=== PATIENT | male | born 1975 | race Caucasian/White ===

== ENCOUNTER 2017-02-10 09:02 | Inpatient (IN) ==
--- NOTE | 2017-02-10 09:16 | Emergency Department Note ---
Disposition Clinical Impression: Small bowel obstruction Disposition: Admitted As Inpatient Condition: Fair Referrals: Oumou Eagle MD [Primary Care Provider] - Forms: Work/School Release, ED Satisfaction Letter Time of Disposition: 10:42 Abdominal Pain HPI - General Chief Complaint: ED Abdominal Pain Stated Complaint: abd pain, constipated Time Seen by Provider: 02/10/17 09:08 Source: patient, family Mode of arrival: ambulatory Limitations: no limitations Nursing Notes Reviewed: Yes Vital Signs Reviewed: Yes - History of Present Illness HPI Narrative: 41-year-old male with a history of Crohn's disease who comes in complaining of abdominal pain for the last day or so. Review of the record shows the patient had a resection of his colon and back in June 2015 had an ileocolonic anastomosis stenosis. That was dilated by GI. Patient was on Remicade but now is getting IV medication. Denies bloody diarrhea has had some constipation. 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 Consistency: intermittent Location: diffuse Pain Severity: moderate Pain Scale: 6 Quality: cramping, aching Radiation: none Migration to: no migration Improves with: nothing Worsens with: nothing Context: history of similar episodes, other (History of Crohn's) Associated symptoms: Reports: constipation - Related Data Home Medications Medication Instructions Recorded Confirmed Asacol Hd 800 mg PO TID 07/08/15 07/08/15 TraMADol [Ultram] 50 mg PO TID PRN 07/08/15 07/08/15 Previous Rx's Medication Instructions Recorded Ciprofloxacin HCl [Cipro] 500 mg PO BID #10 tablet 07/13/15 PredniSONE 30 mg PO DAILY 21 Days 07/13/15 metroNIDAZOLE [Flagyl] 500 mg PO TID 7 Days 07/13/15 Allergies Allergy/AdvReac Type Severity Reaction Status Date / Time No Known Allergies Allergy Verified 02/10/17 09:03 All systems ED: reviewed and negative except as stated. Constitutional: Denies: fever, chills, weakness, weight change Eyes: Denies: eye pain, eye discharge, vision change ENT ED: Denies: ear pain, throat pain, dental pain, hearing loss, epistaxis, congestion, dysphagia Cardiovascular: Denies: chest pain, palpitations, dyspnea on exertion, edema, syncope Respiratory: Denies: cough, dyspnea, wheezes, hemoptysis, stridor Gastrointestinal: Reports: abdominal pain. Denies: nausea, vomiting, diarrhea, constipation, hematemesis, melena, hematochezia Genitourinary: Denies: urgency, dysuria, frequency, hematuria Musculoskeletal: Denies: back pain, neck pain, arthralgia, myalgia Integumentary: Denies: rash, abrasion, lesions Neurological: Denies: headache, weakness, numbness, paresthesias, confusion, abnormal gait, vertigo Psychiatric: Denies: anxiety, depression, suicidal thoughts, homicidal thoughts , auditory hallucinations, visual hallucinations Endocrine: Denies: fatigue Hematological/Lymphatic: Denies: easy bleeding, easy bruising Allergic/Immunologic: Denies: facial swelling, urticaria Abdominal Pain PMH - Past Medical History Medical history: Reports: other Male Surgical History: Reports: other Psychiatric history: Reports: no psych history - Social History Smoking status: Current every day smoker Alcohol use: Reports: heavy, recent Drug use: Reports: none Physical Exam - General Limitations: no limitations General appearance: alert, in no apparent distress - Head Head exam: atraumatic, normocephalic, normal inspection - Eye Eye exam: Present: normal appearance, PERRL, EOMI - ENT ENT exam: normal exam, normal oropharynx, mucous membranes moist - Neck Neck exam: Present: normal inspection, full ROM, trachea midline - Chest Chest inspection: Present: normal inspection, symmetric chest wall rise - Respiratory Respiratory exam: Present: normal lung sounds bilaterally - Cardiovascular Cardiovascular exam: Present: regular rate, normal rhythm, normal heart sounds - Abdominal Exam Abdominal exam: Present: tenderness. Absent: guarding, rebound - Extremities Exam Extremities exam: Present: normal inspection, full ROM. Absent: tenderness, pedal edema - Expanded Lower Extremity Exam Neurovascular/Tendon exam: Absent: motor deficit, sensory deficit, tendon deficit Gait: observed and normal - Back Exam Back exam: Present: normal inspection, full ROM. Absent: tenderness - Neurological Exam Neurological exam: Present: alert, oriented X3 - Psychiatric Psychiatric exam: Present: normal affect, normal mood - Skin Skin exam: Present: warm, dry, intact, normal color Course - Consultations Consultation #1: Discussed with Dr. Vasquez, it to the hospitalist. Time: 10:41 Consultation #2: Discussed with carol Kennedy. Time: 11:10 Vital Signs Temperature 97.6 F 02/10/17 09:04 Pulse Rate 71 02/10/17 09:04 Respiratory Rate 15 02/10/17 09:04 Blood Pressure 171/106 02/10/17 09:04 O2 Sat by Pulse Oximetry 99 02/10/17 09:04 Temperature 97.6 F 02/10/17 09:04 Pulse Rate 71 02/10/17 09:04 Respiratory Rate 15 02/10/17 09:04 Blood Pressure 171/106 02/10/17 09:04 O2 Sat by Pulse Oximetry 99 02/10/17 09:04 Oxygen Delivery Oxygen Delivery Room Air Abdominal Pain - Lab Data Result diagrams: 02/10/17 09:20 02/10/17 09:20 Lab Results 02/10/17 02/10/17 02/10/17 Range/Units 09:20 09:20 09:20 WBC 7.1 (4.3-11.1) K/mcL RBC 4.95 (4.19-5.50) M/mcL Hgb 16.8 (12.9-16.9) g/dL Hct 47.3 (37.5-50.1) % MCV 95.6 (83.0-100.0) fL MCH 33.9 H (28.0-33.3) pg MCHC 35.5 (31.6-35.5) g/dL RDW 12.1 (11.5-14.5) % Plt Count 245 (140-400) K/mcL MPV 9.0 L (9.4-12.4) fL Immature Gran % 0.4 (0-4) % Seg Neutrophils % 56.5 % Lymphocytes % 28.6 % Monocytes % 13.0 % Eosinophils % 0.8 % Basophils % 0.7 % Neutrophils # 4.0 (1.6-8.9) K/mcL Lymphocytes # 2.0 (0.6-4.6) K/mcL Monocytes # 0.9 (0.0-1.3) K/mcL Eosinophils # 0.1 (0.0-0.6) K/mcL Basophils # 0.1 (0.0-0.2) K/mcL Immature Plt Fraction 3.1 (1.1-6.1) % ESR (0-10) mm/hr Sodium 133 L (136-145) mEq/L Potassium 3.4 L (3.5-4.5) mEq/L Chloride 98 (98-109) mEq/L Carbon Dioxide 25 (19-29) mEq/L BUN 13 (8-26) mg/dL Creatinine 1.01 (0.72-1.25) mg/dL Est GFR ( Amer) > 60 (> 60) Est GFR (Non-Af Amer) > 60 (> 60) BUN/Creatinine Ratio 13 (6-26) Glucose 75 (70-99) mg/dL Calculated Osmolality 275 L (280-300) Lactic Acid 0.9 (0.5-2.2) mmol/L Calcium 9.0 (8.6-10.8) mg/dL Total Bilirubin 0.6 (0.2-1.2) mg/dL Direct Bilirubin 0.3 (0.0-0.5) mg/dL Indirect Bilirubin 0.3 (0.0-1.2) mg/dL AST 20 (5-34) Units/L ALT 14 (0-55) Units/L Alkaline Phosphatase 75 (38-126) Units/L Serum Total Protein 7.1 (6.0-8.3) g/dL Albumin 3.3 L (3.5-5.0) g/dL Globulin 3.8 H (2.4-3.5) g/dL Albumin/Globulin Ratio 0.9 L (1.1-2.2) Amylase 59 (25-125) Units/L Lipase 34 (8-78) Units/L 05/20/17 Range/Units 09:20 WBC (4.3-11.1) K/mcL RBC (4.19-5.50) M/mcL Hgb (12.9-16.9) g/dL Hct (37.5-50.1) % MCV (83.0-100.0) fL MCH (28.0-33.3) pg MCHC (31.6-35.5) g/dL RDW (11.5-14.5) % Plt Count (140-400) K/mcL MPV (9.4-12.4) fL Immature Gran % (0-4) % Seg Neutrophils % % Lymphocytes % % Monocytes % % Eosinophils % % Basophils % % Neutrophils # (1.6-8.9) K/mcL Lymphocytes # (0.6-4.6) K/mcL Monocytes # (0.0-1.3) K/mcL Eosinophils # (0.0-0.6) K/mcL Basophils # (0.0-0.2) K/mcL Immature Plt Fraction (1.1-6.1) % ESR 16 H (0-10) mm/hr Sodium (136-145) mEq/L Potassium (3.5-4.5) mEq/L Chloride (98-109) mEq/L Carbon Dioxide (19-29) mEq/L BUN (8-26) mg/dL Creatinine (0.72-1.25) mg/dL Est GFR ( Amer) (> 60) Est GFR (Non-Af Amer) (> 60) BUN/Creatinine Ratio (6-26) Glucose (70-99) mg/dL Calculated Osmolality (280-300) Lactic Acid (0.5-2.2) mmol/L Calcium (8.6-10.8) mg/dL Total Bilirubin (0.2-1.2) mg/dL Direct Bilirubin (0.0-0.5) mg/dL Indirect Bilirubin (0.0-1.2) mg/dL AST (5-34) Units/L ALT (0-55) Units/L Alkaline Phosphatase (38-126) Units/L Serum Total Protein (6.0-8.3) g/dL Albumin (3.5-5.0) g/dL Globulin (2.4-3.5) g/dL Albumin/Globulin Ratio (1.1-2.2) Amylase (25-125) Units/L Lipase (8-78) Units/L
[2017-02-10 09:29] LABS: Basophils # 0.1 K/mcL (0.0-0.2); Basophils % 0.7 %; Eosinophils # 0.1 K/mcL (0.0-0.6); Eosinophils % 0.8 %; Hematocrit 47.3 % (37.5-50.1); Hemoglobin 16.8 g/dL (12.9-16.9); Immature Granulocytes % 0.4 % (0-4); Immature Platelets 3.1 % (1.1-6.1); Lymphocytes % 28.6 %; Mean Corpuscular HGB Conc 35.5 g/dL (31.6-35.5); Mean Corpuscular Hemoglobin 33.9 pg (28.0-33.3); Mean Corpuscular Volume 95.6 fL (83.0-100.0); Monocytes # 0.9 K/mcL (0.0-1.3); Platelet Count 245 K/mcL (140-400); Red Blood Count 4.95 M/mcL (4.19-5.50); Red Cell Distribution Width 12.1 % (11.5-14.5); Segmented Neutrophils % 56.5 %
[2017-02-10 09:42] LABS: BUN/Creatinine Ratio 13 (6-26); Bilirubin,Direct 0.3 mg/dL (0.0-0.5); Bilirubin,Indirect 0.3 mg/dL (0.0-1.2); Bilirubin,Total 0.6 mg/dL (0.2-1.2); Blood Urea Nitrogen 13 mg/dL (8-26); Carbon Dioxide 25 mEq/L (19-29); Chloride 98 mEq/L (98-109); Glucose 75 mg/dL (70-99); Osmolality,Calculated 275 (280-300); Potassium 3.4 mEq/L (3.5-4.5); Sodium 133 mEq/L (136-145); eGFR For African Americans > 60 (> 60); eGFR For Non-African Americans > 60 (> 60)
[2017-02-10 09:43] LABS: Alanine Aminotransferase 14 Units/L (0-55); Albumin 3.3 g/dL (3.5-5.0); Albumin/Globulin Ratio 0.9 (1.1-2.2); Alkaline Phosphatase 75 Units/L (38-126); Amylase 59 Units/L (25-125); Aspartate Amino Transferase 20 Units/L (5-34); Globulin 3.8 g/dL (2.4-3.5); Lipase 34 Units/L (8-78); Total Protein 7.1 g/dL (6.0-8.3)
[2017-02-10] MEDS ORDERED: Ondansetron 4 MG/2 ML VIAL IVP PRN (11:19)
[2017-02-10] MEDS ORDERED: Naloxone 0.4 MG/ML INJ IVP PRN (11:19)
[2017-02-10] MEDS ORDERED: Ketorolac 30 MG/ML VIAL IVP PRN (11:19)
[2017-02-10] MEDS: Pantoprazole 40 MG VIAL IVP SCH (12:53)
--- NOTE | 2017-02-10 12:57 | Internal Med History&Physical ---
Date of Encounter: 02/10/17 Time of Encounter: 12:00 Assessment and Plan (1) Small bowel obstruction Current visit: Yes Status: Acute Patient will be admitted to inpatient status. GI consult. Case discussed with Dr. Salmeron. Conservative management and intravenous steroids according to GI. If he does not respond to conservative management, he may require colonoscopy with dilation of his stricture. IV fluids IV proton pump inhibitors Monitor for bowel moments and flatus. Patient is high risk due to possible need for surgery if he does not resolve with conservative management. I expect the patient to be in the hospital for at least 2 nights. (2) Crohn disease Current visit: Yes Status: Chronic GI consult. Case discussed with GI-patient to be placed on intravenous steroids as he is not able to take by mouth. Qualifiers: Gastrointestinal tract location: small and large intestine Digestive disease complication type: with intestinal obstruction Qualified Code(s): K50.812 - Crohn's disease of both small and large intestine with intestinal obstruction (3) Tobacco abuse Current visit: Yes Status: Chronic Counseled extensively regarding the need for cessation for more than 3 minutes Nicotine patch offered. Patient refused. (4) Alcohol dependence Current visit: Yes Status: Chronic Counseled regarding the need for cessation. CIWA protocol. Vitamin B1 and folic acid intravenously. Social work consult. Will monitor for delirium tremens and I will call her at all seizures. We will place the patient on telemetry. Qualifiers: Substance use status: uncomplicated Qualified Code(s): F10.20 - Alcohol dependence, uncomplicated (5) Protein-calorie malnutrition, severe Current visit: Yes Status: Chronic Patient with a BMI of 14.7. Likely related to his chronic disease-Crohn's disease and also alcohol abuse Will obtain phosphorus and magnesium levels and replace his electrolytes. Once the patient is able to take by mouth, will request nutrition consult. Internal Medicine - H&P: HPI Chief complaint: Abdominal pain and vomiting Admitted From: Emergency Dept Plans for Post Hospital Care: Home History of present illness: Mr. De Souza is a 41 year old male with a history of Crohn's disease was currently on Humira and is being followed by GI as an outpatient presented to the emergency department due to abdominal pain and vomiting. Patient states that these episodes started about 5 days ago on Sunday. He had a couple of episodes of vomiting on Sunday evening. He also had abdominal pain that was 10 /10 in intensity in the middle of the abdomen without any radiation that was dull and throbbing in nature. No aggravating or relieving factors. The patient states that the last time he had a bowel movement was on Sunday that is 6 days ago. He reports that he has been continuing to pass flatus. Though he has not passed any gas today, he states that he has been passing gas until yesterday. He denies any further symptoms of nausea and vomiting after Sunday. He denies any fever or chills, shortness of breath, chest pain, palpitations, feeling lightheaded. Past Med Surg Social Fam HX - Past Medical History Attestation: Yes The following information was validated with the patient. Source: patient Medical history: other (Crohn's Disease) Psychiatric history: no psych history - Past Surgical History Surgical History: other - Social History Smoking Status: Current every day smoker Smokeless Tobacco Status: Yes Alcohol use: heavy Drug use: none Current living situation: Home, With Family Activity Level: Independent ambulation - Family History Mother Living Status: Still Living Hx Family Cardiac Disorders: No Hx Family Respiratory Disorders: No Hx Family Cancer: No Hx Family Endocrine Disorder: No Internal Medicine - H&P: Meds Adalimumab [Humira] 40 mg SQ Q2W 02/10/17 [History] Omeprazole [PriLOSEC] 40 mg PO DAILY 02/10/17 [History] predniSONE [PredniSONE] 20 mg PO DAILY 02/10/17 [History] Allergies No Known Allergies Allergy (Verified 02/10/17 09:03) All Systems PM: A 10-system review of systems was performed and is negative for pertinent findings except as documented above in the HPI. Review of systems: 10 systems have been reviewed and are negative except as mentioned in the history of present illness - Constitutional Vitals: Temp Pulse Resp BP Pulse Ox 97.6 F 57 14 143/89 99 02/10/17 12:49 02/10/17 12:49 02/10/17 12:49 02/10/17 12:49 02/10/17 12:49 Exam: Gen.: Lying in bed. Mild distress. Eyes: Pupils equal, round and reactive to light. Extraocular muscles intact. ENT: Moist mucous membranes. No oropharyngeal erythema or discharge. Edentulous. Chest: Clear to auscultation bilaterally. No adventitious sounds present. CVS: First and second heart sounds present. No murmurs, rubs or gallops. Abdomen: Soft, tender to palpation in the left lower quadrant without any rebound tenderness, guarding or rigidity, nondistended. Bowel sounds very feeble. No hepatosplenomegaly. Skin: No decubitus ulcers appreciated. POULTRY PINNER: No focal neuro deficits present. Psychiatric: Alert, awake and oriented to time, place and person. Lymphatic system: No lymphadenopathy appreciated Internal Med - H&P Results - Labs CBC & Chem 7: 02/10/17 09:20 02/10/17 09:20 - Diagnostic Studies CT scan - abdomen Status: image reviewed by me (Dilated loops of bowel with air-fluid levels related to small bowel obstruction with a likely transition point at the distal small bowel just proximal to the anastomosis)
[2017-02-10] MEDS ORDERED: *HR* LORazepam 2 MG/ML VIAL IVP PRN ×3 (13:00)
[2017-02-10 13:24] LABS: Bilirubin,Urine Negative (Negative); Blood,Urine Negative (Negative); Clarity,Urine Clear (Clear); Color,Urine Yellow (Yellow); Glucose,Urine (UA) Normal (Normal); Ketones,Urine Negative (Negative); Leukocyte Esterase,Urine Negative (Negative); Nitrite,Urine Negative (Negative); Protein,Urine Negative (Neg-Trace); Specific Gravity,Urine 1.012 (1.010-1.025); Urobilinogen,Urine Normal (Normal)
[2017-02-10] MEDS: 0.9 % Sodium Chloride 1,000 ML IVC SCH ×2 (14:51→23:24)
[2017-02-10] MEDS: *HR* Heparin 5,000 UNIT/ML VIAL SQ SCH ×2 (16:43→23:22)
[2017-02-10] MEDS: methylPREDNISolone 125 MG/2 ML VIAL IVP SCH (16:43)
[2017-02-11 04:50] LABS: Basophils % 0.2 %; Hematocrit 43.7 % (37.5-50.1); Hemoglobin 15.6 g/dL (12.9-16.9); Immature Granulocytes % 0.9 % (0-4); Lymphocytes # 1.4 K/mcL (0.6-4.6); Lymphocytes % 25.6 %; Mean Corpuscular HGB Conc 35.7 g/dL (31.6-35.5); Mean Corpuscular Hemoglobin 34.6 pg (28.0-33.3); Mean Corpuscular Volume 96.9 fL (83.0-100.0); Mean Platelet Volume 9.6 fL (9.4-12.4); Monocytes # 0.5 K/mcL (0.0-1.3); Monocytes % 9.9 %; Neutrophils # 3.4 K/mcL (1.6-8.9); Platelet Count 183 K/mcL (140-400); Red Blood Count 4.51 M/mcL (4.19-5.50); Red Cell Distribution Width 12.4 % (11.5-14.5); Segmented Neutrophils % 63.4 %
[2017-02-11 05:08] LABS: Alanine Aminotransferase 9 Units/L (0-55); Albumin 2.8 g/dL (3.5-5.0); Albumin/Globulin Ratio 0.8 (1.1-2.2); Alkaline Phosphatase 64 Units/L (38-126); Aspartate Amino Transferase 18 Units/L (5-34); BUN/Creatinine Ratio 15 (6-26); Bilirubin,Total 0.6 mg/dL (0.2-1.2); Blood Urea Nitrogen 13 mg/dL (8-26); Calcium 8.1 mg/dL (8.6-10.8); Carbon Dioxide 22 mEq/L (19-29); Chloride 103 mEq/L (98-109); Globulin 3.4 g/dL (2.4-3.5); Glucose 103 mg/dL (70-99); Osmolality,Calculated 278 (280-300); Potassium 4.4 mEq/L (3.5-4.5); Sodium 134 mEq/L (136-145); Total Protein 6.2 g/dL (6.0-8.3); eGFR For African Americans > 60 (> 60); eGFR For Non-African Americans > 60 (> 60)
[2017-02-11] MEDS: methylPREDNISolone 125 MG/2 ML VIAL IVP SCH ×2 (05:19→17:24)
[2017-02-11] MEDS: Pantoprazole 40 MG VIAL IVP SCH (07:59)
[2017-02-11] MEDS: 0.9 % Sodium Chloride 1,000 ML IVC SCH ×2 (07:59→17:25)
[2017-02-11] MEDS: *HR* Heparin 5,000 UNIT/ML VIAL SQ SCH ×3 (07:59→23:51)
--- NOTE | 2017-02-11 10:38 | Internal Med Progress Note ---
Date of Encounter: 02/11/17 Time of Encounter: 10:36 - Assessment and plan (1) Crohn disease Current Visit: Yes Status: Chronic Assessment and plan: continue with IV Solu-Medrol. GI consulted. Qualifiers: Gastrointestinal tract location: small and large intestine Digestive disease complication type: with intestinal obstruction Qualified Code(s): K50.812 - Crohn's disease of both small and large intestine with intestinal obstruction (2) Partial small bowel obstruction Current Visit: No Status: Acute Assessment and plan: likely secondary to Crohn's disease exacerbation with obstruction at the level of the previous anastomosis. nothing by mouth for now. Bowel rest. Okay with ice chips and sips of water. IV fluids. (3) DVT prophylaxis Current Visit: No Status: Acute Assessment and plan: ubcutaneous heparin (4) Tobacco abuse Current Visit: Yes Status: Chronic Assessment and plan: I have advised smoking cessation (5) Alcohol dependence Current Visit: Yes Status: Chronic Assessment and plan: CIWA rotocol Qualifiers: Substance use status: uncomplicated Qualified Code(s): F10.20 - Alcohol dependence, uncomplicated (6) Protein-calorie malnutrition, severe Current Visit: Yes Status: Chronic Assessment and plan: dietary consult - Subjective Interval history: 02/11/2017: Patient presented to [facility] with mid abdominal pain that lasted for several days. He reports that this morning. No associated nausea or vomiting continues to pass gas but has not had a bowel movement. - Constitutional Vitals: Temp Pulse Resp BP Pulse Ox 98.0 F 52 12 116/76 97 02/11/17 06:48 02/11/17 06:48 02/11/17 06:48 02/11/17 06:48 02/11/17 06:48 General appearance: Present: A&O X 3 Exam: frail and underweight - Respiratory Respiratory exam: Present: CTAB. Absent: accessory muscle use, rales, rhonchi, wheezes - Cardiovascular Cardiovascular exam: Present: RRR, +S1, +S2. Absent: diastolic murmur, gallop, rubs, systolic murmur - GI/Abdominal GI/Abdominal exam: Present: diminished bowel sounds, soft, no peritoneal signs. Absent: distended, tenderness - Extremities Exam Extremities exam: Present: warm, radial pulses palpable and symetrical. Absent : calf tenderness, cyanotic, pedal edema - Neurological Exam Neurological exam: Present: CN II-XII intact, oriented X3, no focal deficits. Absent: pronater drift, facial droop, speech deficit Internal Medicine: Result - Labs CBC & Chem 7: 02/11/17 04:19 02/11/17 04:19 Labs: Short CBC 02/11/17 Range/Units 04:19 WBC 5.4 (4.3-11.1) K/mcL Hgb 15.6 (12.9-16.9) g/dL Hct 43.7 (37.5-50.1) % Plt Count 183 (140-400) K/mcL Neutrophils # 3.4 (1.6-8.9) K/mcL BMP 02/11/17 04:19 Sodium 134 L Potassium 4.4 D Chloride 103 Carbon Dioxide 22 BUN 13 Creatinine 0.89 Glucose 103 H Calcium 8.1 L Liver Function 02/11/17 Range/Units 04:19 Total Bilirubin 0.6 (0.2-1.2) mg/dL AST 18 (5-34) Units/L ALT 9 (0-55) Units/L Alkaline Phosphatase 64 (38-126) Units/L Albumin 2.8 L (3.5-5.0) g/dL Urine 02/10/17 Range/Units 13:10 Urine Color Yellow (Yellow) Urine Clarity Clear (Clear) Urine pH 6.0 (5.0-8.0) pH Units Ur Specific [place] 1.012 (1.010-1.025) Urine Protein Negative (Neg-Trace) mg/dL Urine Glucose (UA) Normal (Normal) mg/dL Consult Discharge Plan - Plan Referrals: Oumou Eagle MD [Primary Care Provider] -
[2017-02-12] MEDS: 0.9 % Sodium Chloride 1,000 ML IVC SCH ×2 (03:30→14:14)
[2017-02-12] MEDS: methylPREDNISolone 125 MG/2 ML VIAL IVP SCH ×2 (05:26→18:00)
[2017-02-12 06:05] LABS: Basophils % 0.3 %; Hematocrit 44.3 % (37.5-50.1); Hemoglobin 15.7 g/dL (12.9-16.9); Lymphocytes # 1.9 K/mcL (0.6-4.6); Lymphocytes % 24.5 %; Mean Corpuscular HGB Conc 35.4 g/dL (31.6-35.5); Mean Corpuscular Hemoglobin 34.1 pg (28.0-33.3); Mean Corpuscular Volume 96.1 fL (83.0-100.0); Monocytes # 0.6 K/mcL (0.0-1.3); Monocytes % 8.3 %; Neutrophils # 5.1 K/mcL (1.6-8.9); Platelet Count 206 K/mcL (140-400); Red Blood Count 4.61 M/mcL (4.19-5.50); Red Cell Distribution Width 12.4 % (11.5-14.5); Segmented Neutrophils % 65.9 %
[2017-02-12 06:19] LABS: BUN/Creatinine Ratio 21 (6-26); Blood Urea Nitrogen 17 mg/dL (8-26); Calcium 8.3 mg/dL (8.6-10.8); Carbon Dioxide 22 mEq/L (19-29); Chloride 103 mEq/L (98-109); Glucose 94 mg/dL (70-99); Magnesium 1.7 mg/dL (1.6-2.6); Osmolality,Calculated 275 (280-300); Potassium 4.3 mEq/L (3.5-4.5); Sodium 132 mEq/L (136-145); eGFR For African Americans > 60 (> 60); eGFR For Non-African Americans > 60 (> 60)
[2017-02-12] MEDS: Pantoprazole 40 MG VIAL IVP SCH (08:15)
[2017-02-12] MEDS: *HR* Heparin 5,000 UNIT/ML VIAL SQ SCH ×2 (08:15→15:27)
--- NOTE | 2017-02-12 08:18 | Internal Med Progress Note ---
Date of Encounter: 02/12/17 Time of Encounter: 08:15 - Assessment and plan (1) Crohn disease Current Visit: Yes Status: Chronic Assessment and plan: 02/12/2017 continue with IV Solu-Medrol 60 mg every 12 hours. Awaiting evaluation by GI. Patient may need colonoscopy and dilation of the anastomosis. He has had this procedure done in the past. Qualifiers: Gastrointestinal tract location: small and large intestine Digestive disease complication type: with intestinal obstruction Qualified Code(s): K50.812 - Crohn's disease of both small and large intestine with intestinal obstruction (2) Partial small bowel obstruction Current Visit: No Status: Acute Assessment and plan: 02/12/2017: Likely secondary to Crohn's disease exacerbation and obstruction at the level of the previous ileocolic anastomosis. nothing by mouth for now. Bowel rest. Okay with ice chips and sips of water. I will continue with IV fluids with normal saline at 100 mL per hour. We will treat abdominal pain with Toradol. We will provide GI prophylaxis with IV Protonix. (3) DVT prophylaxis Current Visit: No Status: Acute Assessment and plan: ubcutaneous heparin (4) Tobacco abuse Current Visit: Yes Status: Chronic Assessment and plan: I have advised smoking cessation (5) Alcohol dependence Current Visit: Yes Status: Chronic Assessment and plan: CIWA rotocol Qualifiers: Substance use status: uncomplicated Qualified Code(s): F10.20 - Alcohol dependence, uncomplicated (6) Protein-calorie malnutrition, severe Current Visit: Yes Status: Chronic Assessment and plan: dietary consult - Subjective Interval history: 02/12/2017: Patient denies abdominal pain today, he says that he has been passing a lot of gas but no bowel movement yet. Denies chest pain or fever nausea and vomiting. 02/11/2017: Patient presented to [facility] with mid abdominal pain that lasted for several days. He reports that this morning. No associated nausea or vomiting continues to pass gas but has not had a bowel movement. - Constitutional Vitals: Temp Pulse Resp BP Pulse Ox 97.7 F 51 18 127/72 99 02/12/17 07:36 02/12/17 07:36 02/12/17 07:36 02/12/17 07:36 02/12/17 07:36 General appearance: Present: A&O X 3 - Respiratory Respiratory exam: Present: CTAB. Absent: accessory muscle use, rales, rhonchi, wheezes - Cardiovascular Cardiovascular exam: Present: RRR, +S1, +S2. Absent: diastolic murmur, gallop, rubs, systolic murmur - GI/Abdominal GI/Abdominal exam: Present: normal bowel sounds, soft, no peritoneal signs. Absent: distended, tenderness - Neurological Exam Neurological exam: Present: CN II-XII intact, oriented X3, no focal deficits. Absent: pronater drift, facial droop, speech deficit - Skin Additional comments: Multiple hyperkeratotic lesions on both hands, face and forehead. No open wounds. Internal Medicine: Result - Labs CBC & Chem 7: 02/12/17 05:22 02/12/17 05:22 Labs: Short CBC 02/12/17 Range/Units 05:22 WBC 7.7 (4.3-11.1) K/mcL Hgb 15.7 (12.9-16.9) g/dL Hct 44.3 (37.5-50.1) % Plt Count 206 (140-400) K/mcL Neutrophils # 5.1 (1.6-8.9) K/mcL BMP 02/12/17 05:22 Sodium 132 L Potassium 4.3 Chloride 103 Carbon Dioxide 22 BUN 17 Creatinine 0.81 Glucose 94 Calcium 8.3 L Consult Discharge Plan - Plan Referrals: Oumou Eagle MD [Primary Care Provider] -
--- NOTE | 2017-02-12 12:13 | Event Note ---
Date of Encounter: 02/12/17 Time of Encounter: 12:12 Chart review. Plan for colonoscopy tomorrow. Clear liquid diet today, no red or purple. NPO at midnight. If unable tolerate NuLytely please use MiraLAX prep. If not clear by 6 AM, give 2 tap water enemas. Full consult tomorrow.
[2017-02-12] MEDS ORDERED: SODIUM CHLORIDE/NAHCO3/KCL/PEG 4,000 ML SOLN.RECON PO ONE (17:00)
[2017-02-13] MEDS: 0.9 % Sodium Chloride 1,000 ML IVC SCH ×3 (00:22→23:34)
[2017-02-13] MEDS: *HR* Heparin 5,000 UNIT/ML VIAL SQ SCH ×3 (00:30→17:25)
[2017-02-13 05:41] LABS: Basophils % 0.1 %; Hematocrit 44.1 % (37.5-50.1); Hemoglobin 15.6 g/dL (12.9-16.9); Immature Granulocytes % 0.7 % (0-4); Lymphocytes # 1.3 K/mcL (0.6-4.6); Lymphocytes % 19.3 %; Mean Corpuscular HGB Conc 35.4 g/dL (31.6-35.5); Mean Corpuscular Hemoglobin 33.5 pg (28.0-33.3); Mean Corpuscular Volume 94.8 fL (83.0-100.0); Mean Platelet Volume 9.3 fL (9.4-12.4); Monocytes # 0.5 K/mcL (0.0-1.3); Monocytes % 7.7 %; Neutrophils # 4.9 K/mcL (1.6-8.9); Platelet Count 185 K/mcL (140-400); Red Blood Count 4.65 M/mcL (4.19-5.50); Red Cell Distribution Width 12.1 % (11.5-14.5); Segmented Neutrophils % 72.2 %
[2017-02-13] MEDS: methylPREDNISolone 125 MG/2 ML VIAL IVP SCH ×2 (05:50→17:25)
[2017-02-13 05:56] LABS: BUN/Creatinine Ratio 16 (6-26); Blood Urea Nitrogen 12 mg/dL (8-26); Calcium 8.3 mg/dL (8.6-10.8); Carbon Dioxide 25 mEq/L (19-29); Chloride 103 mEq/L (98-109); Glucose 99 mg/dL (70-99); Osmolality,Calculated 278 (280-300); Sodium 134 mEq/L (136-145); eGFR For African Americans > 60 (> 60); eGFR For Non-African Americans > 60 (> 60)
[2017-02-13] MEDS: Pantoprazole 40 MG VIAL IVP SCH (08:45)
--- NOTE | 2017-02-13 12:00 | Anesthesia Evaluation PreOp ---
Date of Encounter: 02/13/17 Time of Encounter: 12:34 - Past History Planned Operation: Colonoscopy Cardiac History: Denies any Significant Hx Pulmonary History: Smoker RESIDENTIAL YOUTH COUNSELOR History: Denies Any Significant HX Other Medical History: Other (Crohn's dx, small bowel obtruction, protein- calorie malnutrition) Anesthesia History: No Prior Anesthetic Complications, Past Anesthesia Alcohol Use: heavy Drug use: none Medications and Allergies Adalimumab [Humira] 40 mg SQ Q2W 02/10/17 [History] Omeprazole [PriLOSEC] 40 mg PO DAILY 02/10/17 [History] predniSONE [PredniSONE] 20 mg PO DAILY 02/10/17 [History] Allergies No Known Allergies Allergy (Verified 02/10/17 09:03) - Meds/Allergy Pre-op Review Medications Reviewed: Yes Allergies Reviewed: Yes Beta Blockers on Current Med List: No Anesthesia Results - Labs 02/13/17 05:15 02/13/17 05:15 Anesthesia Exam O2 Sat Weight 54.023 kg O2 Sat by Pulse Oximetry 100 O2 Sat by Pulse Oximetry 99 O2 Sat by Pulse Oximetry 98 O2 Sat by Pulse Oximetry 99 O2 Sat by Pulse Oximetry 98 O2 Sat by Pulse Oximetry 99 O2 Sat by Pulse Oximetry 94 Vital Signs Temp Pulse Resp BP Pulse Ox 97.6 F 71 15 171/106 99 02/10/17 09:04 02/10/17 09:04 02/10/17 09:04 02/10/17 09:04 02/10/17 09:04 Vital Signs/O2 Sat, Most Current Temp Pulse Resp BP Pulse Ox 98.2 F 49 14 142/78 100 02/13/17 11:44 02/13/17 11:44 02/13/17 11:44 02/13/17 11:44 02/13/17 11:44 Height: 6' Weight: 119# NPO (# of Hours): > 8 hrs Pain Scale: 0 Pain Scale Used: Numeric (1 - 10) - HEENT Pupil (Motor): Pupils equal, EOMI Mallampati: II Teeth: Edentulous Denture Type: Upper: Complete, Lower: Complete Oral Opening: Greater than 3 - RESIDENTIAL YOUTH COUNSELOR LOC: Oriented RESIDENTIAL YOUTH COUNSELOR Motor: Normal RUE, Normal LUE, Normal RLE, Normal LLE, Normal Face RESIDENTIAL YOUTH COUNSELOR Sensory: Normal: RUE, LUE, RLE, LLE, Face - Cardiac Rhythm: Regular Murmur: None JVD: No Carotid Bruit: No - Pulmonary Breath Sounds: bilateral Clear Respiratory Effort: Symmetrical Anesthesia Assess/Plan Modified [place] Scale for Level of Consciousness: Cooperative, oriented, and tranquil Anesthetic Plan: MAC Autologous Blood: Yes Monitoring Plan: Standard Monitors Recovery Plan: Other
--- NOTE | 2017-02-13 12:05 | Gastroenterology Consult Note ---
<Levi Saldana Shamar - Last Filed: 02/13/17 12:06> Date of Encounter: 02/13/17 Time of Encounter: 10:30 - Assessment and plan (1) Crohn disease Current Visit: Yes Status: Chronic Assessment and plan: CT A/P with loops of dilated small bowel with air-fluid levels, likely related to small bowel obstruction. She is likely at the distal small bowel in the right lower quadrant just proximal to the anastomosis, with focal bowel wall thickening which is likely related to Crohn's disease. Continue Solu-Medrol BID. Plan for colonoscopy today. Keep pt NPO. Qualifiers: Gastrointestinal tract location: small and large intestine Digestive disease complication type: with intestinal obstruction Qualified Code(s): K50.812 - Crohn's disease of both small and large intestine with intestinal obstruction (2) Partial small bowel obstruction Current Visit: No Status: Acute Assessment and plan: Likely secondary to stenosis at ileocolonic anastomosis. Plan for colonoscopy with possible dilation. - Time Spent With Patient Total time spent is greater than 50% in coordination of care (as documented) at patient's floor/unit and/or counseling patient: GI History of Present Illness - Data of Consult Patient: known to practice within the last 3 years Consult date: 02/13/17 Requesting Physician: Barry Escamilla MD - Consult Narrative Reason for consult: Crohn's Disease, SBO History of present illness: Mr. De Souza is a 41 year old male with PMHx of Crohn's disease (s/p 2 bowel resections in 1993) who is currently on Humira who presented to the ED due to abdominal pain and vomiting. Patient states that these episodes started about 5 days prior to admission. He reports mid-abdominal pain that was dull and throbbing in nature. No aggravating or relieving factors. The patient states that the last time he had a bowel movement was 6 days prior to admission. He reports that he has been continuing to pass flatus. He denies any further symptoms of nausea and vomiting after Sunday. He denies fever, chills, SOB, chest pain. He was started on Solu-Medrol 60 mg BID. Procedures: Colonoscopy 07/12/2015 Dr. Salmeron: Inflammation secondary to Crohn's disease with ileitis. Severe stenosis of ileo-colonic anastomosis, s/p dilation with 6-10 mm CRE wire guided balloon. NSAIDs: None Anticoagulation: None Past Med Surg Social Fam HX - Past Medical History Medical history: other (Crohn's Disease) Psychiatric history: no psych history - Past Surgical History Surgical History: other - Social History Smoking Status: Current every day smoker Smokeless Tobacco Status: Yes Alcohol use: heavy Drug use: none - Family History Mother Living Status: Still Living Hx Family Cardiac Disorders: No Hx Family Respiratory Disorders: No Hx Family Cancer: No Hx Family Endocrine Disorder: No - Gastrointestinal Gastrointestinal: Present: as per HPI - Constitutional Constitutional: as per HPI - EENT Eyes: as per HPI Ears: Present: as per HPI Nose, mouth and throat: Present: as per HPI - Cardiovascular Cardiovascular ROS: Present: as per HPI - Respiratory Respiratory IM: Present: as per HPI - Genitourinary Genitourinary: Absent: change in color, Urinary frequency - Neurological ROS Neurological GI: Present: as per HPI - Hematologic/Lymphatic Hematologic/Lymphatic pediatric: Present: as per HPI - Musculoskeletal Musculoskeletal ROS GI: Present: as per HPI - Integumentary Integumentary GI: Present: as per HPI - Psychiatric ROS Psychiatric GI: Present: as per HPI - Endocrine Endocrine IM: Present: as per HPI - Constitutional Vitals: Temp Pulse Resp BP Pulse Ox 98.2 F 49 14 142/78 100 02/13/17 11:44 02/13/17 11:44 02/13/17 11:44 02/13/17 11:44 02/13/17 11:44 General appearance: Present: cooperative, A&O X 3, no acute distress, answers questions appropriately - Head Head exam: Present: atraumatic, normocephalic - Eye Eye exam: Present: normal appearance, sclera anicteric - ENT ENT exam: Present: mucous membranes dry - Neck Neck exam general surgery: Present: normal inspection, trachea midline - Respiratory Respiratory exam: Present: decreased breath sounds, CTAB. Absent: rales, rhonchi - Cardiovascular Cardiovascular exam: Present: RRR, +S1, +S2 - GI/Abdominal GI/Abdominal exam: Present: normal bowel sounds, soft, tenderness (RLQ), no peritoneal signs. Absent: distended, firm, guarding - Rectal Rectal exam: Present: deferred - Extremities Exam Extremities exam: Present: warm - Neurological Exam Neurological exam: Present: no focal deficits - Psychiatric Psychiatric exam: Present: normal affect, normal mood - Skin Skin exam: Present: dry, intact, normal color, warm Results - Labs CBC & Chem 7: 02/13/17 05:15 02/13/17 05:15 Labs: Last Result ESR 16 mm/hr (0-10) H 02/10/17 09:20 Calcium 8.3 mg/dL (8.6-10.8) L 02/13/17 05:15 Entire Visit Hgb 15.6 g/dL (12.9-16.9) 02/13/17 05:15 Hct 44.1 % (37.5-50.1) 02/13/17 05:15 Total Bilirubin 0.6 mg/dL (0.2-1.2) 02/11/17 04:19 AST 18 Units/L (5-34) 02/11/17 04:19 ALT 9 Units/L (0-55) 02/11/17 04:19 Amylase 59 Units/L (25-125) 02/10/17 09:20 Lipase 34 Units/L (8-78) 02/10/17 09:20 Consult Discharge Plan - Plan Referrals: Oumou Eagle MD [Primary Care Provider] - <SteveyanethAnnie - Last Filed: 02/13/17 18:35> Date of Encounter: 02/13/17 Time of Encounter: 13:00 - Time Spent With Patient Total time spent is greater than 50% in coordination of care (as documented) at patient's floor/unit and/or counseling patient: GI History of Present Illness - Data of Consult Requesting Physician: Barry Escamilla MD - Consult Narrative History of present illness: Mr. De Souza is a 41 year old male - Constitutional Vitals: Temp Pulse Resp BP Pulse Ox 97.4 F L 41 14 156/82 100 02/13/17 14:54 02/13/17 14:54 02/13/17 14:54 02/13/17 14:54 02/13/17 14:54 Results - Labs CBC & Chem 7: 02/13/17 05:15 02/13/17 05:15 Labs: Last Result ESR 16 mm/hr (0-10) H 02/10/17 09:20 Calcium 8.3 mg/dL (8.6-10.8) L 02/13/17 05:15 Entire Visit Hgb 15.6 g/dL (12.9-16.9) 02/13/17 05:15 Hct 44.1 % (37.5-50.1) 02/13/17 05:15 Total Bilirubin 0.6 mg/dL (0.2-1.2) 02/11/17 04:19 AST 18 Units/L (5-34) 02/11/17 04:19 ALT 9 Units/L (0-55) 02/11/17 04:19 Amylase 59 Units/L (25-125) 02/10/17 09:20 Lipase 34 Units/L (8-78) 02/10/17 09:20 - Attending Attestation I examined this patient and my medical decision-making was reviewed with the INTERPRETIVE NATURALIST/PA/Advanced Practice Nurse/Resident Physician. I agree with the documented findings, disposition and treatment plan as described except to the extent set forth below.
[2017-02-13] MEDS ORDERED: Simethicone 40 MG/0.6 ML MLS IR ONE (12:47)
[2017-02-13] MEDS ORDERED: *HR* Propofol 200 MG/20 ML VIAL IVP ONE (13:20)
[2017-02-13] MEDS ORDERED: *HR* Propofol 500 MG/50 ML BOTTLE IVC ONE (13:20)
--- NOTE | 2017-02-13 15:32 | General Surgery Consult Note ---
<Marisela Stevens - Last Filed: 02/13/17 15:45> Date of Encounter: 02/13/17 Time of Encounter: 15:20 Assessment and Plan (1) Anastomotic stricture of small intestine Current Visit: Yes Status: Acute Patient with severe ileocolonic anastomosis stricture- s/p dilatation with Dr. Salmeron 02/13/17 May continue with full liquid diet IV fluids Supportive care General surgery will continue to follow along and assess patient's progress s/p dilatation May require surgical intervention if fails conservative measures (2) Crohn disease Current Visit: Yes Status: Chronic Management per GI Currently on steroid therapy- solumedrol 60m every 12 hours Qualifiers: Gastrointestinal tract location: small and large intestine Digestive disease complication type: with intestinal obstruction Qualified Code(s): K50.812 - Crohn's disease of both small and large intestine with intestinal obstruction (3) Alcohol dependence Current Visit: Yes Status: Chronic Qualifiers: Substance use status: uncomplicated Qualified Code(s): F10.20 - Alcohol dependence, uncomplicated (4) Tobacco abuse Current Visit: Yes Status: Chronic (5) DVT prophylaxis Current Visit: No Status: Acute Heparin 5,000 units SQ TID for DVT prophylaxis History of Present Illness Consult date: 02/13/17 Reason for consult: other (anastomic stricture) Requesting physician: Annie Salmeron History of present illness: Mr. De Souza is a 41 male with a past medical history significant for Crohn's disease, actinic keratosis, multiple SCC of the skin, alcohol abuse, and tobacco abuse. He follows with GI for management of his Crohn's disease. He states that he has been on Humira for the last 2 years. He has had 2 previous bowel resections which he states occurred in 1993. He has had multiple colonoscopies and has had dilation of a severe stricture at his surgical anastomosis (last was in 2014 prior to this admission). His most recent dilation was completed today with Dr. Salmeron. The patient presented to the hospital with a 5 day history of central abdominal pain which was constant. He states that this started after eating salad. He denies any aggravating or alleviating factors. He states that he did not move his bowels for 6 days. He is currently having soft stools. He typically has a bowel movement twice daily and experiences diarrhea. He has continued to pass flatus during this current episode. He admits to one episode of vomiting prior to presenting to the hospital but denies any current nausea or vomiting. Admits to heartburn and states he was recently started on an acid agitator operator which has helped. Denies any fevers or chills. Denies any melena or hematochezia. Denies any shortness of breath or chest pain. Denies any unexplained weight loss. Past Med Surg Social Fam HX - Past Medical History Source: patient, old records reviewed Medical history: other (Crohn's Disease, actinic keratosis, multiple SCC of skin ) Psychiatric history: no psych history - Past Surgical History Surgical History: other (Bowel resection X 2 in 1993 (unsure of details); excision of multiple SCC of skin, multiple colonoscopies with dilatation) - Social History Smoking Status: Current every day smoker Packs per day: 1/2PPD Smokeless Tobacco Status: Yes Alcohol use: heavy (6 beers per day) Drug use: none Occupational status: unemployed Current living situation: With Family Activity Level: Independent ambulation Recent Out of Country Travel Within the Last 8 Weeks: No Exposure or Possible Exposure to Illness During Travel: No - Family History Mother Living Status: Still Living Hx Family Cardiac Disorders: No Hx Family Respiratory Disorders: No Hx Family Cancer: No Hx Family Endocrine Disorder: No Medications and Allergies Adalimumab [Humira] 40 mg SQ Q2W 02/10/17 [History] Omeprazole [PriLOSEC] 40 mg PO DAILY 02/10/17 [History] predniSONE [PredniSONE] 20 mg PO DAILY 02/10/17 [History] Allergies No Known Allergies Allergy (Verified 02/10/17 09:03) Review of Systems All systems PM: reviewed and no additional remarkable complaints except as stated (in the HPI) All systems PM: A 10-system review of systems was performed and is negative for pertinent findings except as documented above in the HPI. General Surgery Exam Initial Vital Signs Temp Pulse Resp BP Pulse Ox 97.6 F 71 15 171/106 99 02/10/17 09:04 02/10/17 09:04 02/10/17 09:04 02/10/17 09:04 02/10/17 09:04 - General physical appearance well developed, no distress, no pain, chronically ill - Eyes normal ocular movement - ENT normal mucosa, atraumatic, normocephalic - Neck trachea midline - Respiratory normal respiratory effort, clear to auscultation - Cardiovascular Cardiovascular exam: Present: RRR, 15, 16 - Abdomen Abdomen general surgery: Present: bowel sounds present, soft, non tender - Integumentary Integumentary general surgery: Present: warm and dry - Neurologic Present: CN 2-12 grossly intact - Musculoskeletal Present: normal gait, normal posture - Psychiatric Psychiatric general surgery: Present: appropriate, oriented to person, oriented to place, oriented to time, speech is normal, memory intact Exam Initial Vital Signs Temp Pulse Resp BP Pulse Ox 97.6 F 71 15 171/106 99 02/10/17 09:04 02/10/17 09:04 02/10/17 09:04 02/10/17 09:04 02/10/17 09:04 Results - Labs 02/13/17 05:15 02/13/17 05:15 Abnormal lab results MCH 33.5 pg (28.0-33.3) H 02/13/17 05:15 MPV 9.3 fL (9.4-12.4) L 02/13/17 05:15 ESR 16 mm/hr (0-10) H 02/10/17 09:20 Sodium 134 mEq/L (136-145) L 02/13/17 05:15 POC Glucose 92 (58-89) H 02/13/17 11:49 Calculated Osmolality 278 (280-300) L 02/13/17 05:15 Calcium 8.3 mg/dL (8.6-10.8) L 02/13/17 05:15 Albumin 2.8 g/dL (3.5-5.0) L 02/11/17 04:19 Albumin/Globulin Ratio 0.8 (1.1-2.2) L 02/11/17 04:19 Diabetes panel 02/13/17 Range/Units 05:15 Sodium 134 L (136-145) mEq/L Potassium 4.0 (3.5-4.5) mEq/L Chloride 103 (98-109) mEq/L Carbon Dioxide 25 (19-29) mEq/L BUN 12 (8-26) mg/dL Creatinine 0.74 (0.72-1.25) mg/dL Glucose 99 (70-99) mg/dL Calcium 8.3 L (8.6-10.8) mg/dL Calcium panel 02/13/17 Range/Units 05:15 Calcium 8.3 L (8.6-10.8) mg/dL Pituitary panel 02/13/17 Range/Units 05:15 Sodium 134 L (136-145) mEq/L Potassium 4.0 (3.5-4.5) mEq/L Chloride 103 (98-109) mEq/L Carbon Dioxide 25 (19-29) mEq/L BUN 12 (8-26) mg/dL Creatinine 0.74 (0.72-1.25) mg/dL Glucose 99 (70-99) mg/dL Calcium 8.3 L (8.6-10.8) mg/dL Adrenal panel 02/13/17 Range/Units 05:15 Sodium 134 L (136-145) mEq/L Potassium 4.0 (3.5-4.5) mEq/L Chloride 103 (98-109) mEq/L Carbon Dioxide 25 (19-29) mEq/L BUN 12 (8-26) mg/dL Creatinine 0.74 (0.72-1.25) mg/dL Glucose 99 (70-99) mg/dL Calcium 8.3 L (8.6-10.8) mg/dL All other labs normal. - Imaging Additional studies: Abdomen/Pelvis CT 02/10/17 09:12 IMPRESSION: Loops of dilated small bowel with air-fluid levels, likely related to small bowel obstruction. The transition point is likely at the distal small bowel in the right lower quadrant, just proximal to the anastomosis, with focal bowel wall thickening which is likely related to Crohn's disease. D/ / Edwardo Byrnes MD / Edwardo Byrnes MD Interpreting Provider: Edwardo Byrnes MD Consult Discharge Plan - Plan Referrals: Oumou Eagle MD [Primary Care Provider] - - Attending Attestation I examined this patient and my medical decision-making was reviewed with the OYSTER HARVESTER/PA/Advanced Practice Nurse/Resident Physician. I agree with the documented findings, disposition and treatment plan as described except to the extent set forth below. <Arnoldo Vasquez M - Last Filed: 02/14/17 05:24> Date of Encounter: 02/14/17 Review of Systems All systems PM: A 10-system review of systems was performed and is negative for pertinent findings except as documented above in the HPI. General Surgery Exam Initial Vital Signs Temp Pulse Resp BP Pulse Ox 97.6 F 71 15 171/106 99 02/10/17 09:04 02/10/17 09:04 02/10/17 09:04 02/10/17 09:04 02/10/17 09:04 Exam Initial Vital Signs Temp Pulse Resp BP Pulse Ox 97.6 F 71 15 171/106 99 02/10/17 09:04 02/10/17 09:04 02/10/17 09:04 02/10/17 09:04 02/10/17 09:04 Results - Labs 02/13/17 05:15 02/13/17 05:15 Abnormal lab results MCH 33.5 pg (28.0-33.3) H 02/13/17 05:15 MPV 9.3 fL (9.4-12.4) L 02/13/17 05:15 ESR 16 mm/hr (0-10) H 02/10/17 09:20 Sodium 134 mEq/L (136-145) L 02/13/17 05:15 POC Glucose 92 (58-89) H 02/13/17 11:49 Calculated Osmolality 278 (280-300) L 02/13/17 05:15 Calcium 8.3 mg/dL (8.6-10.8) L 02/13/17 05:15 Albumin 2.8 g/dL (3.5-5.0) L 02/11/17 04:19 Albumin/Globulin Ratio 0.8 (1.1-2.2) L 02/11/17 04:19 Diabetes panel 02/13/17 Range/Units 05:15 Sodium 134 L (136-145) mEq/L Potassium 4.0 (3.5-4.5) mEq/L Chloride 103 (98-109) mEq/L Carbon Dioxide 25 (19-29) mEq/L BUN 12 (8-26) mg/dL Creatinine 0.74 (0.72-1.25) mg/dL Glucose 99 (70-99) mg/dL Calcium 8.3 L (8.6-10.8) mg/dL Calcium panel 02/13/17 Range/Units 05:15 Calcium 8.3 L (8.6-10.8) mg/dL Pituitary panel 02/13/17 Range/Units 05:15 Sodium 134 L (136-145) mEq/L Potassium 4.0 (3.5-4.5) mEq/L Chloride 103 (98-109) mEq/L Carbon Dioxide 25 (19-29) mEq/L BUN 12 (8-26) mg/dL Creatinine 0.74 (0.72-1.25) mg/dL Glucose 99 (70-99) mg/dL Calcium 8.3 L (8.6-10.8) mg/dL Adrenal panel 02/13/17 Range/Units 05:15 Sodium 134 L (136-145) mEq/L Potassium 4.0 (3.5-4.5) mEq/L Chloride 103 (98-109) mEq/L Carbon Dioxide 25 (19-29) mEq/L BUN 12 (8-26) mg/dL Creatinine 0.74 (0.72-1.25) mg/dL Glucose 99 (70-99) mg/dL Calcium 8.3 L (8.6-10.8) mg/dL All other labs normal. - Attending Attestation The above assessment and evaluation with the nurse practitioner agree with the above plan. Patient currently has no abdominal pain and is nontender to palpation. Is been passing flatus and having bowel movements even prior to his colonoscopy. He has a known history of Crohn's disease and has had a previous right colectomy with anastomosis in the . He has had to have multiple colonoscopy was dilation of his anastomosis and also repeat dilation was successful at this time the patient may be prone to restenosis. Will follow see if he is able to be progressed to a solid diet but discussed with the patient that he will likely require a revision of his anastomosis. Will follow with you.
--- NOTE | 2017-02-13 17:50 | Internal Med Progress Note ---
Date of Encounter: 02/13/17 Time of Encounter: 10:00 - Assessment and plan (1) Crohn disease Current Visit: Yes Status: Chronic Assessment and plan: 02/13/2017: Patient is due for colonoscopy today. We will continue with Solu- Medrol. Nothing by mouth. IV fluids. IV Toradol for pain. 02/12/2017 continue with IV Solu-Medrol 60 mg every 12 hours. Awaiting evaluation by GI. Patient may need colonoscopy and dilation of the anastomosis. He has had this procedure done in the past. Qualifiers: Gastrointestinal tract location: small and large intestine Digestive disease complication type: with intestinal obstruction Qualified Code(s): K50.812 - Crohn's disease of both small and large intestine with intestinal obstruction (2) Partial small bowel obstruction Current Visit: No Status: Acute Assessment and plan: 02/13/2017: Colonoscopy to be done later this afternoon for possible dilation of a strictured ileocolic anastomosis study. We will follow up with GI. 02/12/2017: Likely secondary to Crohn's disease exacerbation and obstruction at the level of the previous ileocolic anastomosis. nothing by mouth for now. Bowel rest. Okay with ice chips and sips of water. I will continue with IV fluids with normal saline at 100 mL per hour. We will treat abdominal pain with Toradol. We will provide GI prophylaxis with IV Protonix. (3) DVT prophylaxis Current Visit: No Status: Acute Assessment and plan: ubcutaneous heparin (4) Tobacco abuse Current Visit: Yes Status: Chronic Assessment and plan: I have advised smoking cessation (5) Alcohol dependence Current Visit: Yes Status: Chronic Assessment and plan: CIWA rotocol Qualifiers: Substance use status: uncomplicated Qualified Code(s): F10.20 - Alcohol dependence, uncomplicated (6) Protein-calorie malnutrition, severe Current Visit: Yes Status: Chronic Assessment and plan: dietary consult - Subjective Interval history: 02/13/2017: Patient denies abdominal pain. He had passed gas and had some bowel movements after he started taking the bowel prep. Denies fevers chest pain and nausea. 02/12/2017: Patient denies abdominal pain today, he says that he has been passing a lot of gas but no bowel movement yet. Denies chest pain or fever nausea and vomiting. 02/11/2017: Patient presented to [facility] with mid abdominal pain that lasted for several days. He reports that this morning. No associated nausea or vomiting continues to pass gas but has not had a bowel movement. - Constitutional Vitals: Temp Pulse Resp BP Pulse Ox 97.4 F L 41 14 156/82 100 02/13/17 14:54 02/13/17 14:54 02/13/17 14:54 02/13/17 14:54 02/13/17 14:54 General appearance: Present: A&O X 3 - Respiratory Respiratory exam: Present: CTAB. Absent: accessory muscle use, rales, rhonchi, wheezes - Cardiovascular Cardiovascular exam: Present: RRR, +S1, +S2. Absent: diastolic murmur, gallop, rubs, systolic murmur - GI/Abdominal GI/Abdominal exam: Present: normal bowel sounds, soft, no peritoneal signs. Absent: distended, tenderness - Extremities Exam Extremities exam: Present: warm, radial pulses palpable and symetrical. Absent : calf tenderness, cyanotic, pedal edema - Skin Skin exam: Present: dry, intact Internal Medicine: Result - Labs CBC & Chem 7: 02/13/17 05:15 02/13/17 05:15 Labs: Short CBC 02/13/17 Range/Units 05:15 WBC 6.8 (4.3-11.1) K/mcL Hgb 15.6 (12.9-16.9) g/dL Hct 44.1 (37.5-50.1) % Plt Count 185 (140-400) K/mcL Neutrophils # 4.9 (1.6-8.9) K/mcL BMP 02/13/17 05:15 Sodium 134 L Potassium 4.0 Chloride 103 Carbon Dioxide 25 BUN 12 Creatinine 0.74 Glucose 99 Calcium 8.3 L Consult Discharge Plan - Plan Referrals: Oumou Eagle MD [Primary Care Provider] -
[2017-02-14] MEDS: *HR* Heparin 5,000 UNIT/ML VIAL SQ SCH ×2 (01:11→08:38)
[2017-02-14 05:28] LABS: Basophils % 0.2 %; Hematocrit 43.7 % (37.5-50.1); Hemoglobin 15.7 g/dL (12.9-16.9); Immature Granulocytes % 0.9 % (0-4); Lymphocytes # 1.2 K/mcL (0.6-4.6); Lymphocytes % 12.9 %; Mean Corpuscular HGB Conc 35.9 g/dL (31.6-35.5); Mean Corpuscular Hemoglobin 34.3 pg (28.0-33.3); Mean Corpuscular Volume 95.4 fL (83.0-100.0); Mean Platelet Volume 10.1 fL (9.4-12.4); Monocytes # 0.8 K/mcL (0.0-1.3); Monocytes % 8.5 %; Neutrophils # 7.2 K/mcL (1.6-8.9); Platelet Count 185 K/mcL (140-400); Red Blood Count 4.58 M/mcL (4.19-5.50); Red Cell Distribution Width 12.1 % (11.5-14.5); Segmented Neutrophils % 77.5 %
[2017-02-14 05:32] LABS: BUN/Creatinine Ratio 14 (6-26); Blood Urea Nitrogen 10 mg/dL (8-26); Calcium 8.1 mg/dL (8.6-10.8); Carbon Dioxide 25 mEq/L (19-29); Chloride 102 mEq/L (98-109); Glucose 96 mg/dL (70-99); Osmolality,Calculated 281 (280-300); Potassium 3.6 mEq/L (3.5-4.5); Sodium 136 mEq/L (136-145); eGFR For African Americans > 60 (> 60); eGFR For Non-African Americans > 60 (> 60)
[2017-02-14] MEDS: methylPREDNISolone 125 MG/2 ML VIAL IVP SCH (05:43)
[2017-02-14] MEDS: 0.9 % Sodium Chloride 1,000 ML IVC SCH (08:38)
[2017-02-14] MEDS: Pantoprazole 40 MG VIAL IVP SCH (08:38)
[2017-02-14 11:11] VITALS: BP 138/81
--- NOTE | 2017-02-14 11:43 | General Surgery Progress Note ---
Date of Encounter: 02/14/17 Time of Encounter: 09:00 - Assessment and Plan (1) Anastomotic stricture of small intestine Current Visit: Yes Status: Acute Patient with severe ileocolonic anastomosis stricture- s/p dilatation with Dr. Salmeron 02/13/17 May advance to soft diet Encourage fluids Encourage ambulation Stable from surgical stand point. Discharge per hospital team. General surgery will continue to follow along and assess patient's progress s/p dilatation May require surgical intervention if fails conservative measures Keep follow up appointment with Dr Vasquez 03/21/17 at 09:00. (2) Crohn disease Current Visit: Yes Status: Chronic Management per GI Currently on steroid therapy- solumedrol 60m every 12 hours Qualifiers: Gastrointestinal tract location: small and large intestine Digestive disease complication type: with intestinal obstruction Qualified Code(s): K50.812 - Crohn's disease of both small and large intestine with intestinal obstruction (3) Tobacco abuse Current Visit: Yes Status: Chronic (4) Alcohol dependence Current Visit: Yes Status: Chronic Qualifiers: Substance use status: uncomplicated Qualified Code(s): F10.20 - Alcohol dependence, uncomplicated (5) DVT prophylaxis Current Visit: No Status: Acute Heparin 5,000 units SQ TID for DVT prophylaxis Subjective Patient reports: no new complaints, feels better, pain is less, tolerating liquids well, voiding w/o difficulty, flatus, bowel movement, afebrile Narrative: Patient was seen and examined. He is tolerating his full liquid diet well. He reports he has had more than 4 bowel movements and flatus. Patient states that he feels ready to go home. He has been ambulating this morning. He reports that he is hungry and would like to advance to soft diet. Objective Vital Signs - Last 8 Hours Temp Pulse Resp BP Pulse Ox 02/14/17 11:07 97.7 F 53 12 138/81 96 02/14/17 08:43 99 02/14/17 07:19 97.8 F 46 12 148/79 99 02/14/17 03:53 97.5 F L 46 14 150/76 99 Intake and Output 02/13/17 02/14/17 02/14/17 23:59 07:59 15:59 Intake Total 1000 / 1000 1140 / 1140 Output Total 1600 / 1600 550 / 550 450 / 450 Balance -600 / -600 -550 / -550 690 / 690 Intake: IV Fluids 1000 / 1000 900 / 900 0.9 % Sodium Chloride 1, 1000 / 1000 900 / 900 000 ML @ 100 mls/hr IVC . Q10H [facility] Rx#:[id number] Oral 240 / 240 Output: Urine 1600 / 1600 550 / 550 450 / 450 Other: Meal Breakfast Percent of Meal Consumed 100% Stool Size Copious Large Stool Consistency liquid liquid Stool Color Brown Brown # Bowel Movements 1 Weight 49.351 kg Patient Weight 02/14/17 23:59 Weight 49.351 kg - General physical appearance well developed, no distress, chronically ill - Eyes PERRL, normal ocular movement - ENT atraumatic, normocephalic, CN 2-12 grossly intact - Neck Neck exam: trachea midline - Respiratory normal expansion, normal respiratory effort, clear to auscultation - Cardiovascular Cardiovascular exam: Present: RRR, no murmurs/rubs/gallops. Absent: JVD - Abdomen Abdomen: Present: bowel sounds present, soft, non tender - Integumentary no rash, other (warm and dry) - Neurologic CN 2-12 grossly intact, normal coordination, normal sensation - Musculoskeletal normal gait - Psychiatric oriented to time, oriented to person, oriented to place, speech is normal, memory intact - Labs 02/14/17 04:16 02/14/17 04:16 Diabetes panel 02/14/17 Range/Units 04:16 Sodium 136 (136-145) mEq/L Potassium 3.6 (3.5-4.5) mEq/L Chloride 102 (98-109) mEq/L Carbon Dioxide 25 (19-29) mEq/L BUN 10 (8-26) mg/dL Creatinine 0.73 (0.72-1.25) mg/dL Glucose 96 (70-99) mg/dL Calcium 8.1 L (8.6-10.8) mg/dL Calcium panel 02/14/17 Range/Units 04:16 Calcium 8.1 L (8.6-10.8) mg/dL Pituitary panel 02/14/17 Range/Units 04:16 Sodium 136 (136-145) mEq/L Potassium 3.6 (3.5-4.5) mEq/L Chloride 102 (98-109) mEq/L Carbon Dioxide 25 (19-29) mEq/L BUN 10 (8-26) mg/dL Creatinine 0.73 (0.72-1.25) mg/dL Glucose 96 (70-99) mg/dL Calcium 8.1 L (8.6-10.8) mg/dL Adrenal panel 02/14/17 Range/Units 04:16 Sodium 136 (136-145) mEq/L Potassium 3.6 (3.5-4.5) mEq/L Chloride 102 (98-109) mEq/L Carbon Dioxide 25 (19-29) mEq/L BUN 10 (8-26) mg/dL Creatinine 0.73 (0.72-1.25) mg/dL Glucose 96 (70-99) mg/dL Calcium 8.1 L (8.6-10.8) mg/dL Consult Discharge Plan - Plan Referrals: Oumou Eagle MD [Primary Care Provider] - Arnoldo Vasquez MD [Partnered Physician] - 03/21/17 9:00 am (eneral surgery will continue to follow along and assess patient's progress s/p dilatation May require surgical intervention if fails conservative measures) Annie Salmeron MD [Partnered Physician] - 02/27/17 3:30 pm
--- NOTE | 2017-02-14 12:21 | Discharge Summary ---
Date of Encounter: 02/14/17 Time of Encounter: 12:17 - Discharge Diagnosis (1) Crohn disease Priority: Secondary Status: Chronic Qualifiers: Gastrointestinal tract location: small and large intestine Digestive disease complication type: with intestinal obstruction Qualified Code(s): K50.812 - Crohn's disease of both small and large intestine with intestinal obstruction (2) Partial small bowel obstruction Priority: Primary Status: Acute (3) DVT prophylaxis Priority: Secondary Status: Acute (4) Tobacco abuse Priority: Secondary Status: Chronic (5) Alcohol dependence Priority: Secondary Status: Chronic Qualifiers: Substance use status: uncomplicated Qualified Code(s): F10.20 - Alcohol dependence, uncomplicated (6) Protein-calorie malnutrition, severe Priority: Secondary Status: Chronic (7) Anastomotic stricture of small intestine Priority: Secondary Status: Acute - Discharge Medications Prescriptions: predniSONE [Prednisone] 10 mg PO DAILY 15 Days Home Medications: Adalimumab [Humira] 40 mg SQ Q2W 02/10/17 [History] Omeprazole [PriLOSEC] 40 mg PO DAILY 02/10/17 [History] predniSONE [Prednisone] 10 mg PO DAILY 15 Days 02/14/17 [Rx] Allergies/Adverse Reactions: Allergies No Known Allergies Allergy (Verified 02/10/17 09:03) Date of admission: 02/10/17 11:19 Primary care physician: Oumou Eagle, Consults: 02/10/17 13:00 Consult to [employer] [CONS] Routine Reason for SW Consult: Alcohol dependence 02/10/17 13:01 Consult to Gastroenterology [CONS] Routine Consulting Provider: Gastroenterology Devol Reason for Consult: Crohn's disease; SBO Call Completed: Yes 02/12/17 08:21 dietary consult [Consult to Nutrition] [CONS] Routine Comment: BMI is 14.7. Currently NPO. Will need supplement Consulting Provider: NUTRITION Reason for Dietary Consult: PO Supplementation - Patient Status Disposition: Home, Self-Care Condition: Fair Functional capacity at discharge: independent ambulation Overall status at discharge: patient is progressing back to baseline - Discharge Instructions Follow Up With: Arnoldo Vasquez MD [Partnered Physician] - 03/21/17 9:00 am (eneral surgery will continue to follow along and assess patient's progress s/p dilatation May require surgical intervention if fails conservative measures) Oumou Eagle MD [Primary Care Provider] - Annie Salmeron MD [Partnered Physician] - 02/27/17 3:30 pm Additional Instructions: Avoid all alcohol intake. Refrain from smoking. Follow-up with primary care physician in 7-10 days. - Diet and Activity Activity: increase activity as tolerated (soft mechanical diet) Hospital course: Hospital presentation: Mr. De Souza is a 41 year old male with a history of Crohn's disease was currently on Humira and is being followed by GI as an outpatient presented to the emergency department due to abdominal pain and vomiting. Patient states that these episodes started about 5 days ago on Sunday. He had a couple of episodes of vomiting on Sunday evening. He also had abdominal pain that was 10/10 in intensity in the middle of the abdomen without any radiation that was dull and throbbing in nature. No aggravating or relieving factors. The patient states that the last time he had a bowel movement was on Sunday that is 6 days ago. He reports that he has been continuing to pass flatus. Though he has not passed any gas today, he states that he has been passing gas until yesterday. He denies any further symptoms of nausea and vomiting after Sunday. He denies any fever or chills, shortness of breath, chest pain, palpitations, feeling lightheaded. Hospital course: The patient was admitted to the medical service. He was made nothing by mouth. He was treated with IV fluids and IV steroids. GI was consulted. He had a colonoscopy done which found a tight anastomotic site stricture at the previous ileocolic anastomosis. This was successfully dilated. General surgery was consulted, they recommended continued steroid treatment and advancing diet. The patient's diet was advanced to clears and then to soft. He tolerated this well. He continued to pass bowel movements. Today he denies abdominal pain. He has no nausea or vomiting. He tolerated diet. I have counseled the patient extensively about smoking cessation and I advised complete alcohol cessation. I will prescribe a prednisone taper and will discharge the patient home with close follow-up with surgery and GI. The patient verbalizes understanding of the discharge plan and the intention to comply with his medication regimen. I have provided discharge instructions and the presence of the patient's mother at the bedside. I have answered all of their questions regarding the patient's medical care. - Time Spent with Patient Total time spent providing and/or coordinating discharge services: - Constitutional Vitals: Temp Pulse Resp BP Pulse Ox 97.7 F 53 12 138/81 96 02/14/17 11:07 02/14/17 11:07 02/14/17 11:07 02/14/17 11:07 02/14/17 11:07 General appearance: Present: A&O X 3 - Eye Eye exam: Present: PERRL, conjuntiva pink, sclera anicteric Pupils: Present: PERRL - Cardiovascular Cardiovascular exam: Present: RRR, +S1, +S2. Absent: diastolic murmur, gallop, rubs, systolic murmur - GI/Abdominal GI/Abdominal exam: Present: normal bowel sounds, soft, no peritoneal signs. Absent: distended, tenderness - Extremities Exam Extremities exam: Present: warm, radial pulses palpable and symetrical. Absent : calf tenderness, cyanotic, pedal edema - Skin Skin exam: Present: dry, intact
== END 2017-02-14 14:33 | disposition home or self-care (01) | DRG 252 ==
LOC: 3ANU 09:02 → EMEROO 09:02 → SUATTDRO 11:19 → 3ANU 12:17
PROVIDERS: ADMIT Internal Medicine Sleep Medicine; ATTEND Internal Medicine

== ENCOUNTER 2017-03-01 11:34 | Inpatient (IN) ==
[2017-03-01] MEDS ORDERED: Ondansetron ODT 4 MG TAB.RAPDIS SL ONE (12:02)
[2017-03-01] MEDS ORDERED: *HR* HYDROmorphone (PF) 1 MG/ML SYRINGE IVP ONE (12:02)
--- NOTE | 2017-03-01 12:10 | Emergency Department Note ---
Disposition Clinical Impression: SBO (small bowel obstruction) Abdominal pain Qualifiers: Abdominal location: generalized Qualified Code(s): R10.84 - Generalized abdominal pain Crohns disease Qualifiers: Gastrointestinal tract location: unspecified location Digestive disease complication type: with intestinal obstruction Qualified Code(s): K50.912 - Crohn's disease, unspecified, with intestinal obstruction Disposition: Admitted As Inpatient Condition: Fair Time of Disposition: 15:00 Abdominal Pain HPI - General Chief Complaint: ED Abdominal Pain Stated Complaint: "Crohns Flare Up" Time Seen by Provider: 03/01/17 11:43 Source: patient Mode of arrival: ambulatory Limitations: no limitations Nursing Notes Reviewed: Yes Vital Signs Reviewed: Yes - History of Present Illness HPI Narrative: Patient is a 41-year-old male who presents to [facility] ED with a chief complaint of abdominal pain. States the symptoms started on 2016 and have persisted. States this is how it feels when he has a Crohn's flareup. Patient states his last bowel movement was on Sunday prior to this. Denies any nausea, vomiting, fever or chills. States he has had little bits of intermittent flatus. Patient is still on a steroid taper dose of 10 mg prednisone. Patient was most recently admitted last month for a small bowel obstruction and was seen to have very strictured anastomotic ileocolonic site which was dilated by Dr. Salmeron. Patient had also been evaluated by surgery Dr. Vasquez at the time. Patient states he just saw Dr. Salmeron on Sunday but was not placed on any new medications. Patient continues to take his prednisone and Humira shots. Patient denies any other pain anywhere else or any other medical history. Pt Subjective Complaint: abdominal pain Onset (ago): day(s) Consistency: intermittent Location: diffuse, periumbilical Pain Severity: moderate Pain Scale: 5 Quality: aching, sharp Radiation: none Migration to: no migration Improves with: nothing Worsens with: nothing Associated symptoms: Denies: nausea, vomiting, diarrhea, fever, chills, constipation Treatments prior to arrival: none - Related Data Home Medications Medication Instructions Recorded Confirmed Adalimumab [Humira] 40 mg SQ Q2W 02/10/17 03/01/17 Omeprazole [PriLOSEC] 40 mg PO DAILY 02/10/17 03/01/17 Allergies Allergy/AdvReac Type Severity Reaction Status Date / Time No Known Allergies Allergy Verified 02/10/17 09:03 All systems ED: reviewed and negative except as stated. Abdominal Pain PMH - Past Medical History Medical history: Reports: other Male Surgical History: Reports: other Psychiatric history: Reports: no psych history - Social History Smoking status: Current some day smoker Alcohol use: Reports: heavy Drug use: Reports: none Physical Exam - General Limitations: no limitations General appearance: alert, in no apparent distress - Head Head exam: atraumatic, normocephalic, normal inspection - Eye Eye exam: Present: normal appearance, PERRL, EOMI - ENT ENT exam: normal exam, normal oropharynx, mucous membranes moist - Neck Neck exam: Present: normal inspection, full ROM, trachea midline - Chest Chest inspection: Present: normal inspection, symmetric chest wall rise - Respiratory Respiratory exam: Present: normal lung sounds bilaterally - Cardiovascular Cardiovascular exam: Present: regular rate, normal rhythm, normal heart sounds - Abdominal Exam Abdominal exam: Present: soft, tenderness, hyperactive bowel sounds. Absent: distention, guarding, rebound, rigidity Abdominal tenderness: Present: diffuse - Extremities Exam Extremities exam: Present: normal inspection, full ROM. Absent: tenderness, pedal edema - Back Exam Back exam: Present: normal inspection, full ROM. Absent: tenderness - Neurological Exam Neurological exam: Present: alert, oriented X3 - Psychiatric Psychiatric exam: Present: normal affect, normal mood - Skin Skin exam: Present: warm, dry, intact, normal color Course Course Narrative: Patient seen and examined. Abdominal pain worse with palpation. History of Crohn's with prior right-sided colectomy. There was an anastomotic stricture last time he was admitted one month ago which was dilated. They spoke with the surgeon's office today who recommended them come to the emergency department. Basic abdominal labs, CT abdomen and pelvis with IV and oral contrast ordered. 1 mg IV Dilaudid and 4 mg Zofran ordered. 1 L fluids to pretreat for the IV contrast. Anticipate likely need for admission with surgery consultation. - Reevaluation(s) Reevaluation #1: Labwork shows some toxic granulation and elevated neutrophils. His CT scan shows high-grade partial small bowel obstruction with transition point at the inflamed portion of the distal ileum that is proximal to the ileocolonic anastomosis. One 25 mg of Solu-Medrol was ordered. I spoke with surgery Dr. Lara who would like patient to be admitted to the hospitalist service. He will see the patient in consult. I spoke with the hospitalist Nilsa Marceol who has accepted patient for admission. Time: 15:00 Vital Signs Temperature 98.8 F 03/01/17 11:37 Pulse Rate 88 03/01/17 11:37 Respiratory Rate 18 03/01/17 11:37 Blood Pressure 139/98 03/01/17 11:37 O2 Sat by Pulse Oximetry 98 03/01/17 11:37 Temperature 98.8 F 03/01/17 11:37 Pulse Rate 71 03/01/17 14:38 Respiratory Rate 18 03/01/17 15:46 Blood Pressure 116/81 03/01/17 15:46 O2 Sat by Pulse Oximetry 97 03/01/17 14:38 Oxygen Delivery Oxygen Delivery Room Air Abdominal Pain - Medical Records Medical records reviewed: Yes I reviewed the patient's medical records. - Lab Data Lab results reviewed: Yes I reviewed the patient's lab results. Result diagrams: 03/01/17 12:19 03/01/17 12:19 Lab Results 03/01/17 03/01/17 03/01/17 Range/Units 12:19 12:19 12:19 WBC 6.1 (4.3-11.1) K/mcL RBC 4.93 (4.19-5.50) M/mcL Hgb 16.2 (12.9-16.9) g/dL Hct 46.7 (37.5-50.1) % MCV 94.7 (83.0-100.0) fL MCH 32.9 (28.0-33.3) pg MCHC 34.7 (31.6-35.5) g/dL RDW 12.2 (11.5-14.5) % Plt Count 173 (140-400) K/mcL MPV 8.5 L (9.4-12.4) fL Seg Neutrophils % 22.0 % Band Neutrophils % 20.0 H (0-4) % Lymphocytes % 36.0 % Monocytes % 22.0 % Neutrophils # 2.6 (1.6-8.9) K/mcL Lymphocytes # 2.2 (0.6-4.6) K/mcL Monocytes # 1.3 (0.0-1.3) K/mcL Reactive Lymphocytes Present A (Not Present) Toxic Granulation Present A (Not Present) Platelet Estimate Normal (Normal) Clumped Platelets Few A (Not Present) Sodium 132 L (136-145) mEq/L Potassium 3.7 (3.5-4.5) mEq/L Chloride 99 (98-109) mEq/L Carbon Dioxide 27 (19-29) mEq/L BUN 17 (8-26) mg/dL Creatinine 0.88 (0.72-1.25) mg/dL Est GFR ( Amer) > 60 (> 60) Est GFR (Non-Af Amer) > 60 (> 60) BUN/Creatinine Ratio 19 (6-26) Glucose 104 H (70-99) mg/dL Calculated Osmolality 276 L (280-300) Lactic Acid 0.9 (0.5-2.2) mmol/L Calcium 9.1 (8.6-10.8) mg/dL Total Bilirubin 1.0 (0.2-1.2) mg/dL Direct Bilirubin 0.4 (0.0-0.5) mg/dL Indirect Bilirubin 0.6 (0.0-1.2) mg/dL AST 17 (5-34) Units/L ALT 25 (0-55) Units/L Alkaline Phosphatase 61 (38-126) Units/L Serum Total Protein 6.7 (6.0-8.3) g/dL Albumin 2.9 L (3.5-5.0) g/dL Globulin 3.8 H (2.4-3.5) g/dL Albumin/Globulin Ratio 0.8 L (1.1-2.2) Lipase 26 (8-78) Units/L - Radiology Data Radiology results reviewed: Yes I reviewed the patient's radiology results. Abdomen/Pelvis CT 03/01/17 13:30 IMPRESSION: Postsurgical changes likely from prior remote resection of the terminal ileum. Focal acute inflammatory changes of the distal ileum proximal to the ileocolic anastomosis with wall thickening, mucosal enhancement and surrounding right lower quadrant inflammatory changes and reactive mesenteric lymphadenopathy. Findings are consistent with acute inflammation from Crohn's disease. High-grade partial small bowel obstruction with transition point at the inflamed portion of the distal ileum described above. D/ / 03/01/2017 15:24:34 Jame Womack MD / caron Interpreting Provider: Jame Womack MD Attestation Statement - Attestation Attestation: I, Otf Mcfadden, examined this patient and my medical decision-making was reviewed with the DIRECTOR GENERAL/PA/Advanced Practice Nurse/Resident Physician. I agree with the documented findings, disposition and treatment plan as described except to the extent set forth below. 41-year-old male presents with concerns of abdominal pain. Patient states that he has a history of Crohn's and this feels similar to his previous exacerbations however is much more severe. Patient has a history of a previous colon resection secondary to his Crohn's. He recently had a colonoscopy which showed significant stricture of his bowel which he is now following Dr. Vasquez for surgery. Patient states that he has been unable to eat and drink and has intractable pain over the past [address] of the abdomen shows inflammation consistent with acute Crohn flare as well as a high-grade small bowel obstruction. Surgery is aware of the CT findings. Patient be admitted to the hospital for continued care and evaluation.
[2017-03-01] MEDS ORDERED: 0.9 % Sodium Chloride 1,000 ML IVC ONE (12:14)
[2017-03-01 12:26] LABS: Hematocrit 46.7 % (37.5-50.1); Hemoglobin 16.2 g/dL (12.9-16.9); Mean Corpuscular HGB Conc 34.7 g/dL (31.6-35.5); Mean Corpuscular Hemoglobin 32.9 pg (28.0-33.3); Mean Corpuscular Volume 94.7 fL (83.0-100.0); Mean Platelet Volume 8.5 fL (9.4-12.4); Platelet Count 173 K/mcL (140-400); Red Blood Count 4.93 M/mcL (4.19-5.50); Red Cell Distribution Width 12.2 % (11.5-14.5)
[2017-03-01 12:46] LABS: Alanine Aminotransferase 25 Units/L (0-55); Albumin 2.9 g/dL (3.5-5.0); Albumin/Globulin Ratio 0.8 (1.1-2.2); Alkaline Phosphatase 61 Units/L (38-126); Aspartate Amino Transferase 17 Units/L (5-34); BUN/Creatinine Ratio 19 (6-26); Bilirubin,Direct 0.4 mg/dL (0.0-0.5); Bilirubin,Indirect 0.6 mg/dL (0.0-1.2); Blood Urea Nitrogen 17 mg/dL (8-26); Calcium 9.1 mg/dL (8.6-10.8); Carbon Dioxide 27 mEq/L (19-29); Chloride 99 mEq/L (98-109); Globulin 3.8 g/dL (2.4-3.5); Glucose 104 mg/dL (70-99); Lipase 26 Units/L (8-78); Osmolality,Calculated 276 (280-300); Potassium 3.7 mEq/L (3.5-4.5); Sodium 132 mEq/L (136-145); Total Protein 6.7 g/dL (6.0-8.3); eGFR For African Americans > 60 (> 60); eGFR For Non-African Americans > 60 (> 60)
[2017-03-01 13:02] LABS: Lymphocytes # 2.2 K/mcL (0.6-4.6); Monocytes # 1.3 K/mcL (0.0-1.3); Neutrophils # 2.6 K/mcL (1.6-8.9); Reactive Lymphocytes Present (Not Present); Toxic Granulation Present (Not Present)
[2017-03-01 13:03] LABS: Platelet Clumps Few (Not Present); Platelet Estimate Normal (Normal)
[2017-03-01] MEDS ORDERED: methylPREDNISolone 125 MG/2 ML VIAL IVP ONE (14:22)
--- NOTE | 2017-03-01 15:33 | Internal Med History&Physical ---
Date of Encounter: 03/02/17 Time of Encounter: 15:32 Assessment and Plan (1) Abdominal pain Current visit: Yes Status: Acute will keep NPO.2/2 SBO partial with focal acute inflammatory changes of the distal ileum prox to the ileocolic anastomosis. IVF,keep IV morphine for severe pain. GI and surgery consult Qualifiers: Abdominal location: generalized Qualified Code(s): R10.84 - Generalized abdominal pain (2) Crohns disease Current visit: Yes Status: Acute follows with DR. Salmeron , On IV clara and was recently admitted for features of SBO when he underwent colonsocopy and dilatation of the anastomotic stricture. hei is still taking his tapering dose of steroids will consult GI again for further recommendations. Qualifiers: Gastrointestinal tract location: unspecified location Digestive disease complication type: with intestinal obstruction Qualified Code(s): K50.912 - Crohn's disease, unspecified, with intestinal obstruction (3) SBO (small bowel obstruction) Current visit: Yes Status: Acute partial small bowel obstruction with transition point at the inferior portion of the distal ileum, proximal to the ileocolic anastomosis as per the CT abdomen. he had dilatation of the stricture at the site of the anastomosis 2 weeks ago. will keep NPO, IVF, pain meds will follow surgical and GI recomendation (4) Squamous cell skin cancer Current visit: No Status: Chronic chronic Internal Medicine - H&P: HPI Chief complaint: abdominal pain Admitted From: Home Plans for Post Hospital Care: Home History of present illness: Mr. De Souza is a 41 year old male Patient is a 41-year-old male who presents to [facility] ED with a chief complaint of abdominal pain. States the symptoms started on 2016 and have persisted. States this is how it feels when he has a Crohn's flareup. Patient states his last bowel movement was on Sunday prior to this. Denies any nausea, vomiting, fever or chills. States he has had little bits of intermittent flatus. Patient is still on a steroid taper dose of 10 mg prednisone. Patient was most recently admitted last month for a small bowel obstruction and was seen to have very strictured anastomotic ileocolonic site which was dilated by Dr. Salmeron. Patient had also been evaluated by surgery Dr. Vasquez at the time. Patient states he just saw Dr. Salmeron on Alyce but was not placed on any new medications. Patient continues to take his prednisone and Humira shots. Patient denies any other pain anywhere else or any other medical history. Past Med Surg Social Fam HX - Past Medical History Medical history: other Psychiatric history: no psych history - Past Surgical History Surgical History: other (Bowel resection X 2 in 1993 (unsure of details); excision of multiple SCC of skin, multiple colonoscopies with dilatation) - Social History Smoking Status: Current some day smoker Smokeless Tobacco Status: Yes Alcohol use: heavy Drug use: none - Family History Mother Living Status: Still Living Hx Family Cardiac Disorders: No Hx Family Respiratory Disorders: No Hx Family Cancer: No Hx Family Endocrine Disorder: No Internal Medicine - H&P: Meds Adalimumab [Humira] 40 mg SQ Q2W 02/10/17 [History] Omeprazole [PriLOSEC] 40 mg PO DAILY 02/10/17 [History] Allergies No Known Allergies Allergy (Verified 02/10/17 09:03) All Systems PM: A 10-system review of systems was performed and is negative for pertinent findings except as documented above in the HPI. - Constitutional Constitutional: as per HPI - EENT Eyes: as per HPI Ears: as per HPI Nose, mouth and throat: as per HPI - Breasts Breasts: as per HPI - Cardiovascular Cardiovascular ROS IM: as per HPI - Respiratory Respiratory: as per HPI - Gastrointestinal Gastrointestinal: as per HPI - Constitutional Vitals: Temp Pulse Resp BP Pulse Ox 98.8 F 71 20 130/98 97 03/01/17 11:37 03/01/17 14:38 03/01/17 14:38 03/01/17 14:38 03/01/17 14:38 General appearance: Present: A&O X 3, no acute distress Exam: neck- supple chest- b/lclear cvs-s1 and s2, no m/r/g abd-soft, guarding, non tender, bs are present ext- no edema Internal Med - H&P Results - Labs CBC & Chem 7: 03/02/17 03:19 03/02/17 03:19
[2017-03-01] MEDS ORDERED: Naloxone 0.4 MG/ML INJ IVP PRN (15:34)
[2017-03-01] MEDS ORDERED: *HR* Morphine 2 MG/ML SYRINGE IVP PRN (16:25)
[2017-03-01] MEDS ORDERED: Adalimumab [Humira] 40 MG SQ SCH (16:30)
[2017-03-01] MEDS: 0.9 % Sodium Chloride 1,000 ML IVC SCH (16:50)
[2017-03-01] MEDS ORDERED: (Adalimumab [Humira] 40 MG) SQ SCH (17:00)
[2017-03-01] MEDS: *HR* Heparin 5,000 UNIT/ML VIAL SQ SCH (17:56)
[2017-03-01 18:40] LABS: Bilirubin,Urine Negative (Negative); Blood,Urine Negative (Negative); Clarity,Urine Clear (Clear); Color,Urine Yellow (Yellow); Glucose,Urine (UA) Normal (Normal); Ketones,Urine 15 mg/dL (Negative); Leukocyte Esterase,Urine Negative (Negative); Nitrite,Urine Negative (Negative); PH,Urine 5.5 pH Units (5.0-8.0); Protein,Urine Trace mg/dL (Neg-Trace); Specific Gravity,Urine 1.015 (1.010-1.025); Urobilinogen,Urine Normal (Normal)
--- NOTE | 2017-03-01 20:29 | General Surgery Consult Note ---
Date of Encounter: 03/01/17 Time of Encounter: 20:25 Assessment and Plan (1) Crohn disease Current Visit: Yes Status: Chronic The patient has evidence of acute on chronic bowel dilatation. Currently he is not having vomiting. This is his second admission to the hospital in 2 weeks. He has a known active segment and or ileocolonic anastomotic stricture. This may require resection in the future. We will follow along with you clinically. Qualifiers: Gastrointestinal tract location: small and large intestine Digestive disease complication type: with intestinal obstruction Qualified Code(s): K50.812 - Crohn's disease of both small and large intestine with intestinal obstruction History of Present Illness Consult date: 03/01/17 History of present illness: The patient is admitted today from the emergency room for abdominal pain. He has a long-standing history of Crohn's disease. His first operation was in 1993 here at [facility]. He had ileocecectomy for active Crohn's disease. Since that time he has done well and followed with gastroenterology. He is compliant on his medicines. He was recently in the hospital 2 weeks ago for a Crohn's flare. This was treated with steroid. He has had dilation of a ileocolonic anastomosis stenosis earlier this year. Today he denies nausea or vomiting. He does have severe right lower quadrant and mid abdominal pain. I personally reviewed the CAT scan. He has chronically dilated small bowel there may be an active Crohn segment in the right lower quadrant. There is no evidence of perforation. He may very well require resection if he has continued recurrent episodes of partial bowel obstruction, stenosis, Crohn's recurrence. We will follow along clinically. Past Med Surg Social Fam HX - Past Medical History Medical history: other Psychiatric history: no psych history - Past Surgical History Surgical History: other - Social History Smoking Status: Current some day smoker Smokeless Tobacco Status: No Alcohol use: heavy Drug use: none - Family History Mother Living Status: Still Living Hx Family Cardiac Disorders: No Hx Family Respiratory Disorders: No Hx Family Cancer: No Hx Family Endocrine Disorder: No Medications and Allergies Adalimumab [Humira] 40 mg SQ Q2W 02/10/17 [History] Omeprazole [PriLOSEC] 40 mg PO DAILY 02/10/17 [History] Allergies No Known Allergies Allergy (Verified 02/10/17 09:03) Review of Systems All systems PM: A 10-system review of systems was performed and is negative for pertinent findings except as documented above in the HPI. General Surgery Exam Initial Vital Signs Temp Pulse Resp BP Pulse Ox 98.8 F 88 18 139/98 98 03/01/17 11:37 03/01/17 11:37 03/01/17 11:37 03/01/17 11:37 03/01/17 11:37 - General physical appearance well developed, moderate pain, chronically ill, other (Slender) - Neck no masses, no bruits, trachea midline, no lymphadectomy, no venous distension - Respiratory normal expansion, normal respiratory effort, clear to percussion, clear to auscultation - Cardiovascular Cardiovascular exam: Present: RRR, 15, 16 - Abdomen Abdomen general surgery: Present: tender (Tenderness is mild. There is no guarding and no rebound. I cannot feel a mass) Abdominal Tenderness: Present: RUQ - Neurologic Present: CN 2-12 grossly intact, normal coordination, normal sensation Exam Initial Vital Signs Temp Pulse Resp BP Pulse Ox 98.8 F 88 18 139/98 98 03/01/17 11:37 03/01/17 11:37 03/01/17 11:37 03/01/17 11:37 03/01/17 11:37 Results - Labs 03/01/17 12:19 03/01/17 12:19 Abnormal lab results MPV 8.5 fL (9.4-12.4) L 03/01/17 12:19 Band Neutrophils % 20.0 % (0-4) H 03/01/17 12:19 Reactive Lymphocytes Present (Not Present) A 03/01/17 12:19 Toxic Granulation Present (Not Present) A 03/01/17 12:19 Clumped Platelets Few (Not Present) A 03/01/17 12:19 Sodium 132 mEq/L (136-145) L 03/01/17 12:19 Glucose 104 mg/dL (70-99) H 03/01/17 12:19 POC Glucose 90 (58-89) H 03/01/17 17:20 Calculated Osmolality 276 (280-300) L 03/01/17 12:19 Albumin 2.9 g/dL (3.5-5.0) L 03/01/17 12:19 Globulin 3.8 g/dL (2.4-3.5) H 03/01/17 12:19 Albumin/Globulin Ratio 0.8 (1.1-2.2) L 03/01/17 12:19 Urine Ketones 15 mg/dL (Negative) H 03/01/17 18:07 All other labs normal. - Imaging CT scan - abdomen: image reviewed (I personally reviewed the CAT scan image. He has diffuse dilated small bowel there may be inactive segment in the right lower quadrant. There is no evidence of abscess or perforation) Consult Discharge Plan - Plan Referrals: Oumou Eagle MD [Primary Care Provider] -
[2017-03-02] MEDS: 0.9 % Sodium Chloride 1,000 ML IVC SCH ×3 (03:54→22:31)
[2017-03-02 04:22] LABS: Basophils % 0.5 %; Hematocrit 39.9 % (37.5-50.1); Immature Granulocytes % 1.2 % (0-4); Lymphocytes # 0.6 K/mcL (0.6-4.6); Lymphocytes % 15.3 %; Mean Corpuscular HGB Conc 33.6 g/dL (31.6-35.5); Mean Corpuscular Hemoglobin 32.5 pg (28.0-33.3); Mean Corpuscular Volume 96.8 fL (83.0-100.0); Mean Platelet Volume 8.8 fL (9.4-12.4); Monocytes # 0.3 K/mcL (0.0-1.3); Monocytes % 7.4 %; Neutrophils # 3.1 K/mcL (1.6-8.9); Platelet Count 160 K/mcL (140-400); Red Blood Count 4.12 M/mcL (4.19-5.50); Red Cell Distribution Width 12.1 % (11.5-14.5); Segmented Neutrophils % 75.6 %
[2017-03-02 04:34] LABS: BUN/Creatinine Ratio 22 (6-26); Blood Urea Nitrogen 16 mg/dL (8-26); Carbon Dioxide 22 mEq/L (19-29); Chloride 103 mEq/L (98-109); Glucose 111 mg/dL (70-99); Osmolality,Calculated 280 (280-300); Potassium 4.1 mEq/L (3.5-4.5); Sodium 134 mEq/L (136-145); eGFR For African Americans > 60 (> 60); eGFR For Non-African Americans > 60 (> 60)
[2017-03-02 04:36] LABS: Hemoglobin 13.4 g/dL (12.9-16.9)
[2017-03-02 05:13] LABS: Platelet Estimate Normal (Normal)
[2017-03-02] MEDS: *HR* Heparin 5,000 UNIT/ML VIAL SQ SCH ×2 (05:33→18:16)
--- NOTE | 2017-03-02 07:13 | General Surgery Progress Note ---
Date of Encounter: 03/02/17 Time of Encounter: 07:05 - Assessment and Plan (1) Crohn disease Current Visit: Yes Status: Chronic The patient has evidence of acute on chronic bowel dilatation. Currently he is not having vomiting. This is his second admission to the hospital in 2 weeks. He has a known active segment and or ileocolonic anastomotic stricture. This may require resection in the future. We will follow along with you clinically. 03/02/2017. Overnight the patient had no complaints of nausea or vomiting. He states his abdominal pain is improved. This leads me to the conclusion small bowel dilatation is chronic. There is no acute surgical abdomen. No evidence of obstruction or perforation. At this point treatment consists of acute Crohn' s exacerbation. Surgery is reserved for documented obstruction or perforation. Qualifiers: Gastrointestinal tract location: small and large intestine Digestive disease complication type: with intestinal obstruction Qualified Code(s): K50.812 - Crohn's disease of both small and large intestine with intestinal obstruction Subjective Narrative: The patient is seen and evaluated. Overnight he had no complaints of nausea or vomiting. He states his abdominal pain is improved. He has had no febrile episodes. His vital signs are stable. Objective Vital Signs - Last 8 Hours Temp Pulse Resp BP Pulse Ox 03/02/17 06:54 97.6 F 68 12 101/63 98 03/02/17 03:19 97.5 F L 58 14 101/64 98 03/01/17 23:16 97.7 F 61 14 102/68 96 Intake and Output 03/01/17 03/01/17 03/02/17 15:59 23:59 07:59 Intake Total 0 / 0 1000 / 1000 Output Total 375 / 375 150 / 150 Balance -375 / -375 850 / 850 Intake: IV Fluids 1000 / 1000 0.9 % Sodium Chloride 1, 1000 / 1000 000 ML @ 100 mls/hr IVC . Q10H KATHY Rx#:[id number] Oral 0 / 0 0 / 0 Output: Urine 375 / 375 150 / 150 Other: Weight 49.532 kg Blood Glucose* 128 104 Patient Weight 03/02/17 23:59 Weight 49.532 kg - General physical appearance cachectic, chronically ill - Respiratory normal expansion, normal respiratory effort, clear to percussion, clear to auscultation - Cardiovascular Cardiovascular exam: Present: RRR, no murmurs/rubs/gallops - Abdomen Abdomen: Present: bowel sounds present, soft, non tender (I am unable to palpate a mass in the right lower quadrant. He has some tenderness in the right lower quadrant with deep palpation) - Neurologic normal coordination, normal sensation - Psychiatric oriented to time, oriented to person, oriented to place, speech is normal, memory intact - Labs 03/02/17 03:19 03/02/17 03:19 Diabetes panel 03/02/17 Range/Units 03:19 Sodium 134 L (136-145) mEq/L Potassium 4.1 (3.5-4.5) mEq/L Chloride 103 (98-109) mEq/L Carbon Dioxide 22 (19-29) mEq/L BUN 16 (8-26) mg/dL Creatinine 0.73 (0.72-1.25) mg/dL Glucose 111 H (70-99) mg/dL Calcium 8.0 L (8.6-10.8) mg/dL Calcium panel 03/02/17 Range/Units 03:19 Calcium 8.0 L (8.6-10.8) mg/dL Pituitary panel 03/02/17 Range/Units 03:19 Sodium 134 L (136-145) mEq/L Potassium 4.1 (3.5-4.5) mEq/L Chloride 103 (98-109) mEq/L Carbon Dioxide 22 (19-29) mEq/L BUN 16 (8-26) mg/dL Creatinine 0.73 (0.72-1.25) mg/dL Glucose 111 H (70-99) mg/dL Calcium 8.0 L (8.6-10.8) mg/dL Adrenal panel 03/02/17 Range/Units 03:19 Sodium 134 L (136-145) mEq/L Potassium 4.1 (3.5-4.5) mEq/L Chloride 103 (98-109) mEq/L Carbon Dioxide 22 (19-29) mEq/L BUN 16 (8-26) mg/dL Creatinine 0.73 (0.72-1.25) mg/dL Glucose 111 H (70-99) mg/dL Calcium 8.0 L (8.6-10.8) mg/dL Consult Discharge Plan - Plan Referrals: Oumou Eagle MD [Primary Care Provider] -
--- NOTE | 2017-03-02 08:55 | Gastroenterology Consult Note ---
<Ava Cosme - Last Filed: 03/02/17 10:39> Date of Encounter: 03/02/17 Time of Encounter: 10:15 - Assessment and plan (1) Crohn disease Current Visit: Yes Status: Chronic Assessment and plan: Humira Qualifiers: Gastrointestinal tract location: small and large intestine Digestive disease complication type: with intestinal obstruction Qualified Code(s): K50.812 - Crohn's disease of both small and large intestine with intestinal obstruction (2) Partial small bowel obstruction Current Visit: No Status: Acute Assessment and plan: Recurrent, s/p dilation by Dr. Salmeron, most recently 02/13/17. He is being followed by [facility] for possible resection. - Time Spent With Patient Total time spent is greater than 50% in coordination of care (as documented) at patient's floor/unit and/or counseling patient: less than 15 minutes GI History of Present Illness - Data of Consult Patient: known to practice within the last 3 years Consult date: 03/02/17 Requesting Physician: Spencer Nunez - Consult Narrative Reason for consult: PSBO d/t severe coloenteric stenosis History of present illness: Patient is a 41-year-old male who presents to [facility] ED with a chief complaint of abdominal pain. States the symptoms started on 2016 and have persisted. States this is how it feels when he has a Crohn's flareup. Patient states his last bowel movement was on Sunday prior to this. Denies any nausea, vomiting, fever or chills. States he has had little bits of intermittent flatus. Patient is still on a steroid taper dose of 10 mg prednisone. Patient was most recently admitted last month for a small bowel obstruction and underwent colonic dilation 12 mm for a severe stenosis at the coloenteric anastamosis. Surgery has been consulted and the patient seen by Dr. Lara during this hospitalization. Patient states he just saw Dr. Salmeron on Sunday but was not placed on any new medications. Patient continues to take his prednisone and Humira shots. Patient denies any other pain anywhere else or any other medical history. Patient has not yet had a bowel movement, last one Sunday, but is passing gas. He has had a clear liquid diet today. Colonoscopy: 02/13/17 - [facility] - severe stenosis coloenteric anastamosis, dilation 12 mm EGD: None noted Past Med Surg Social Fam HX - Past Medical History Medical history: other Psychiatric history: no psych history - Past Surgical History Surgical History: other - Social History Smoking Status: Current some day smoker Smokeless Tobacco Status: No Alcohol use: heavy Drug use: none - Family History Mother Living Status: Still Living Hx Family Cardiac Disorders: No Hx Family Respiratory Disorders: No Hx Family Cancer: No Hx Family Endocrine Disorder: No - Gastrointestinal NSAID use: None noted Anticoagulation Use: None noted Number of BM Per Day: 1 Gastrointestinal: Present: abdominal pain, constipation, nausea, vomiting - Constitutional Constitutional: as per HPI - EENT Eyes: as per HPI Ears: Present: as per HPI Nose, mouth and throat: Present: as per HPI - Cardiovascular Cardiovascular ROS: Present: as per HPI - Respiratory Respiratory IM: Present: as per HPI - Neurological ROS Neurological GI: Present: as per HPI - Hematologic/Lymphatic Hematologic/Lymphatic pediatric: Present: as per HPI - Musculoskeletal Musculoskeletal ROS GI: Present: as per HPI - Integumentary Integumentary GI: Present: as per HPI - Psychiatric ROS Psychiatric GI: Present: as per HPI - Endocrine Endocrine IM: Present: as per HPI - Constitutional Vitals: Temp Pulse Resp BP Pulse Ox 97.6 F 68 12 101/63 98 03/02/17 06:54 03/02/17 06:54 03/02/17 06:54 03/02/17 06:54 03/02/17 06:54 General appearance: Present: cooperative, A&O X 3, no acute distress, answers questions appropriately - Head Head exam: Present: atraumatic, normocephalic - Eye Eye exam: Present: normal appearance, sclera anicteric - ENT ENT exam: Present: mucous membranes moist - Neck Neck exam general surgery: Present: normal inspection, trachea midline - Respiratory Respiratory exam: Present: CTAB - Cardiovascular Cardiovascular exam: Present: RRR, +S1, +S2 - GI/Abdominal GI/Abdominal exam: Present: normal bowel sounds, soft, no peritoneal signs - Rectal Rectal exam: Present: deferred - Extremities Exam Extremities exam: Present: warm - Neurological Exam Neurological exam: Present: no focal deficits - Psychiatric Psychiatric exam: Present: normal affect, normal mood - Skin Skin exam: Present: rash Additional comments: facial Results - Labs CBC & Chem 7: 03/02/17 03:19 06/09/17 03:19 Labs: Last Result Calcium 8.0 mg/dL (8.6-10.8) L 03/02/17 03:19 Entire Visit Hgb 13.4 g/dL (12.9-16.9) D 03/02/17 03:19 Hct 39.9 % (37.5-50.1) 03/02/17 03:19 Total Bilirubin 1.0 mg/dL (0.2-1.2) 03/01/17 12:19 AST 17 Units/L (5-34) 03/01/17 12:19 ALT 25 Units/L (0-55) 03/01/17 12:19 Lipase 26 Units/L (8-78) 03/01/17 12:19 Consult Discharge Plan - Plan Referrals: Oumou Eagle MD [Primary Care Provider] - <JaronAnnie - Last Filed: 03/02/17 12:48> Date of Encounter: 03/02/17 Time of Encounter: 11:00 - Time Spent With Patient Total time spent is greater than 50% in coordination of care (as documented) at patient's floor/unit and/or counseling patient: GI History of Present Illness - Data of Consult Requesting Physician: Spencer Nunez - Consult Narrative History of present illness: Mr. De Souza is a 41 year old male - Constitutional Vitals: Temp Pulse Resp BP Pulse Ox 97.6 F 53 12 114/72 99 03/02/17 06:54 03/02/17 12:17 03/02/17 12:17 03/02/17 12:17 03/02/17 12:17 Results - Labs CBC & Chem 7: 03/02/17 03:19 03/02/17 03:19 Labs: Last Result Calcium 8.0 mg/dL (8.6-10.8) L 03/02/17 03:19 Entire Visit Hgb 13.4 g/dL (12.9-16.9) D 03/02/17 03:19 Hct 39.9 % (37.5-50.1) 03/02/17 03:19 Total Bilirubin 1.0 mg/dL (0.2-1.2) 03/01/17 12:19 AST 17 Units/L (5-34) 03/01/17 12:19 ALT 25 Units/L (0-55) 03/01/17 12:19 Lipase 26 Units/L (8-78) 03/01/17 12:19 - Attending Attestation I examined this patient and my medical decision-making was reviewed with the JOB PRESS FEEDER/PA/Advanced Practice Nurse/Resident Physician. I agree with the documented findings, disposition and treatment plan as described except to the extent set forth below. Pt need resection of the anastomosis and the strictured segment of TI. Biologic not helping.
[2017-03-02] MEDS: Pantoprazole 40 MG VIAL IVP SCH (09:15)
--- NOTE | 2017-03-02 13:19 | Internal Med Progress Note ---
Date of Encounter: 03/02/17 Time of Encounter: 13:16 - Assessment and plan (1) Abdominal pain Current Visit: Yes Status: Acute Assessment and plan: clinically better, passing gas , no nausea or vomiting gen surgery following, no signs of obstruction at thi stime clinically, may need surgery in future. has not had any bowel movement yet. diet has been advanced to clears, will observe today. Qualifiers: Abdominal location: generalized Qualified Code(s): R10.84 - Generalized abdominal pain (2) Crohns disease Current Visit: Yes Status: Acute Assessment and plan: seen by GI, is on clara shots. may need surgery as per GI recommendations. continue clara for now. Qualifiers: Gastrointestinal tract location: unspecified location Digestive disease complication type: with intestinal obstruction Qualified Code(s): K50.912 - Crohn's disease, unspecified, with intestinal obstruction (3) SBO (small bowel obstruction) Current Visit: Yes Status: Acute Assessment and plan: Recurrent, s/p dilation by Dr. Salmeron, most recently 02/13/17. presented with recurrent abdominal pain and CT showing features of SBO. He is being followed by [facility] , symptoms have improved for now, He has a known active segment and or ileocolonic anastomotic stricture. This may require resection in the future. diet advanced today to clears, will observe today, slowly advance diet. (4) Squamous cell skin cancer Current Visit: No Status: Chronic - Subjective Interval history: seen at the bedside, denies any abdominal pain , nausea or vomiting. CT abd with crohns disease and finding concerning for sbo. - Constitutional Vitals: Temp Pulse Resp BP Pulse Ox 97.6 F 53 12 114/72 99 03/02/17 06:54 03/02/17 12:17 03/02/17 12:17 03/02/17 12:17 03/02/17 12:17 General appearance: Present: A&O X 3, no acute distress Exam: neck- supple chest- b/l clear, no added sounds CVS-s1 and s2, no mr.g/ abd-soft, non tender, bs are present ext- no edema neuro- alert and awake, no focal defecits Internal Medicine: Result - Labs CBC & Chem 7: 03/02/17 03:19 03/02/17 03:19 Labs: Short CBC 03/02/17 Range/Units 03:19 WBC 4.1 L (4.3-11.1) K/mcL Hgb 13.4 D (12.9-16.9) g/dL Hct 39.9 (37.5-50.1) % Plt Count 160 (140-400) K/mcL Neutrophils # 3.1 (1.6-8.9) K/mcL BMP 03/02/17 03:19 Sodium 134 L Potassium 4.1 Chloride 103 Carbon Dioxide 22 BUN 16 Creatinine 0.73 Glucose 111 H Calcium 8.0 L Urine 03/01/17 Range/Units 18:07 Urine Color Yellow (Yellow) Urine Clarity Clear (Clear) Urine pH 5.5 (5.0-8.0) pH Units Ur Specific [place] 1.015 (1.010-1.025) Urine Protein Trace (Neg-Trace) mg/dL Urine Glucose (UA) Normal (Normal) mg/dL Consult Discharge Plan - Plan Referrals: Oumou Eagle MD [Primary Care Provider] -
[2017-03-03] MEDS: *HR* Heparin 5,000 UNIT/ML VIAL SQ SCH (05:32)
[2017-03-03] MEDS: Pantoprazole 40 MG VIAL IVP SCH (09:05)
[2017-03-03] MEDS: 0.9 % Sodium Chloride 1,000 ML IVC SCH (09:05)
[2017-03-03 09:45] LABS: Hemoglobin 13.7 g/dL (12.9-16.9); Mean Corpuscular HGB Conc 34.3 g/dL (31.6-35.5); Mean Corpuscular Hemoglobin 33.7 pg (28.0-33.3); Mean Corpuscular Volume 98.3 fL (83.0-100.0); Mean Platelet Volume 9.3 fL (9.4-12.4); Monocytes # 0.2 K/mcL (0.0-1.3); Nucleated Red Blood Cells 0.5 /100 WBC (0); Platelet Count 169 K/mcL (140-400); Red Blood Count 4.07 M/mcL (4.19-5.50); Red Cell Distribution Width 12.3 % (11.5-14.5)
[2017-03-03 09:57] LABS: BUN/Creatinine Ratio 12 (6-26); Blood Urea Nitrogen 9 mg/dL (8-26); Calcium 8.1 mg/dL (8.6-10.8); Carbon Dioxide 22 mEq/L (19-29); Chloride 105 mEq/L (98-109); Glucose 60 mg/dL (70-99); Osmolality,Calculated 281 (280-300); Potassium 3.1 mEq/L (3.5-4.5); Sodium 137 mEq/L (136-145); eGFR For African Americans > 60 (> 60); eGFR For Non-African Americans > 60 (> 60)
[2017-03-03 10:08] LABS: Lymphocytes # 1.2 K/mcL (0.6-4.6); Neutrophils # 2.4 K/mcL (1.6-8.9)
[2017-03-03 10:09] LABS: Platelet Estimate Normal (Normal)
--- NOTE | 2017-03-03 10:21 | General Surgery Progress Note ---
Date of Encounter: 03/03/17 Time of Encounter: 10:20 - Assessment and Plan (1) Partial small bowel obstruction Current Visit: No Status: Acute Patient is doing well. I think is appropriate to go ahead and advance his diet to full liquids and likely advance to soft diet. If he does tolerate a soft diet and I think it would be okay for him to be discharged home with outpatient follow-up in 3-4 weeks. Subjective Patient reports: feels better (Denies any pain or nausea. Positive BM x 2 today.) Objective Vital Signs - Last 8 Hours Temp Pulse Resp BP Pulse Ox 03/03/17 06:53 97.5 F L 83 17 138/87 100 03/03/17 03:38 97.7 F 55 16 124/80 98 Intake and Output 03/02/17 03/03/17 03/03/17 23:59 07:59 15:59 Intake Total 677 / 677 763 / 763 Output Total 500 / 500 Balance 177 / 177 763 / 763 Intake: IV Fluids 477 / 477 523 / 523 0.9 % Sodium Chloride 1, 477 / 477 523 / 523 000 ML @ 100 mls/hr IVC . Q10H KATHY Rx#:[id number] Oral 200 / 200 240 / 240 Output: Urine 500 / 500 Other: Meal Breakfast Stool Size Large Stool Consistency formed Stool Color Brown Weight 51.7 kg Patient Weight 03/03/17 23:59 Weight 51.7 kg - General physical appearance well developed, well nourished, no distress - Abdomen Abdomen: Present: bowel sounds present, soft, non tender - Labs 03/03/17 08:34 03/03/17 08:34 Diabetes panel 03/03/17 Range/Units 08:34 Sodium 137 (136-145) mEq/L Potassium 3.1 L D (3.5-4.5) mEq/L Chloride 105 (98-109) mEq/L Carbon Dioxide 22 (19-29) mEq/L BUN 9 (8-26) mg/dL Creatinine 0.75 (0.72-1.25) mg/dL Glucose 60 L (70-99) mg/dL Calcium 8.1 L (8.6-10.8) mg/dL Calcium panel 03/03/17 Range/Units 08:34 Calcium 8.1 L (8.6-10.8) mg/dL Pituitary panel 03/03/17 Range/Units 08:34 Sodium 137 (136-145) mEq/L Potassium 3.1 L D (3.5-4.5) mEq/L Chloride 105 (98-109) mEq/L Carbon Dioxide 22 (19-29) mEq/L BUN 9 (8-26) mg/dL Creatinine 0.75 (0.72-1.25) mg/dL Glucose 60 L (70-99) mg/dL Calcium 8.1 L (8.6-10.8) mg/dL Adrenal panel 03/03/17 Range/Units 08:34 Sodium 137 (136-145) mEq/L Potassium 3.1 L D (3.5-4.5) mEq/L Chloride 105 (98-109) mEq/L Carbon Dioxide 22 (19-29) mEq/L BUN 9 (8-26) mg/dL Creatinine 0.75 (0.72-1.25) mg/dL Glucose 60 L (70-99) mg/dL Calcium 8.1 L (8.6-10.8) mg/dL Consult Discharge Plan - Plan Referrals: Oumou Eagle MD [Primary Care Provider] - 03/14/17 9:40 am
--- NOTE | 2017-03-03 12:29 | Internal Med Progress Note ---
Date of Encounter: 03/03/17 Time of Encounter: 12:26 - Assessment and plan (1) Abdominal pain Current Visit: Yes Status: Acute Assessment and plan: clinically better, passing gas, had 2 bowel movements , no nausea or vomiting gen surgery following, no signs of obstruction at thi stime clinically, may need surgery in future. will follow surgical recommendtaion diet has been advanced to full liquids, will observe today. Qualifiers: Abdominal location: generalized Qualified Code(s): R10.84 - Generalized abdominal pain (2) Crohns disease Current Visit: Yes Status: Acute Assessment and plan: seen by GI, is on clara shots. may need surgery as per GI recommendations. continue clara for now. Qualifiers: Gastrointestinal tract location: unspecified location Digestive disease complication type: with intestinal obstruction Qualified Code(s): K50.912 - Crohn's disease, unspecified, with intestinal obstruction (3) SBO (small bowel obstruction) Current Visit: Yes Status: Acute Assessment and plan: Recurrent, s/p dilation by Dr. Salmeron, most recently 02/13/17. presented with recurrent abdominal pain and CT showing features of SBO. He is being followed by [facility] , symptoms have improved for now, He has a known active segment and or ileocolonic anastomotic stricture. This may require resection in the future. diet advanced today to full liquids, doing better, will observe today, slowly advance diet. (4) Squamous cell skin cancer Current Visit: No Status: Chronic - Subjective Interval history: seen at the bedside, denies any abdominal pain , nausea or vomiting. had 2 bowel movements last night. CT abd with crohns disease and finding concerning for sbo, however clinically no signs of obstruction. GI and surgery is on board - Constitutional Vitals: Temp Pulse Resp BP Pulse Ox 98.5 F 65 16 150/88 100 03/03/17 10:44 03/03/17 10:44 03/03/17 10:44 03/03/17 10:44 03/03/17 10:44 General appearance: Present: A&O X 3, no acute distress Exam: neck- supple chest- b/l clear, no added sounds CVS-s1 and s2, no mr.g/ abd-soft, non tender, bs are present ext- no edema neuro- alert and awake, no focal defecits Internal Medicine: Result - Labs CBC & Chem 7: 03/03/17 08:34 03/03/17 08:34 Labs: Short CBC 03/03/17 Range/Units 08:34 WBC 3.9 L (4.3-11.1) K/mcL Hgb 13.7 (12.9-16.9) g/dL Hct 40.0 (37.5-50.1) % Plt Count 169 (140-400) K/mcL Neutrophils # 2.4 (1.6-8.9) K/mcL BMP 03/03/17 08:34 Sodium 137 Potassium 3.1 L D Chloride 105 Carbon Dioxide 22 BUN 9 Creatinine 0.75 Glucose 60 L Calcium 8.1 L Consult Discharge Plan - Plan Referrals: Oumou Eagle MD [Primary Care Provider] - 03/14/17 9:40 am
[2017-03-03] MEDS ORDERED: Potassium Chloride Elixir 20 MEQ/15 ML UDC PO SCH (12:30)
[2017-03-03 15:13] VITALS: BP 146/75
--- NOTE | 2017-03-03 15:46 | Discharge Summary ---
Date of Encounter: 03/05/17 Time of Encounter: 15:44 - Discharge Diagnosis (1) Abdominal pain Priority: Primary Status: Acute Qualifiers: Abdominal location: generalized Qualified Code(s): R10.84 - Generalized abdominal pain (2) Crohns disease Priority: Secondary Status: Acute Qualifiers: Gastrointestinal tract location: unspecified location Digestive disease complication type: with intestinal obstruction Qualified Code(s): K50.912 - Crohn's disease, unspecified, with intestinal obstruction (3) SBO (small bowel obstruction) Priority: Primary Status: Acute (4) Squamous cell skin cancer Priority: Secondary Status: Chronic - Discharge Medications Prescriptions: HYDROcodone/Acet 5/325 mg [Lavon 5-325 mg] 1 tab PO Q6H PRN #30 tab PRN Reason: Pain Home Medications: Adalimumab [Humira] 40 mg SQ Q2W 02/10/17 [History] Omeprazole [PriLOSEC] 40 mg PO DAILY 02/10/17 [History] HYDROcodone/Acet 5/325 mg [Lavon 5-325 mg] 1 tab PO Q6H PRN #30 tab 03/03/17 [Rx ] Allergies/Adverse Reactions: Allergies No Known Allergies Allergy (Verified 02/10/17 09:03) Date of admission: 03/03/17 00:35 Primary care physician: Oumou Eagle, - Patient Status Disposition: Home, Self-Care Condition: Fair Functional capacity at discharge: independent ambulation Overall status at discharge: patient is back to baseline - Discharge Instructions Follow Up With: Oumou Eagle MD [Primary Care Provider] - 03/14/17 9:40 am Arnoldo Vasquez MD [Partnered Physician] - - Diet and Activity Activity: resume usual activities as tolerated Diet: other (soft diet 1 week) Interval History: Patient is a 41-year-old male who presents to [facility] ED with a chief complaint of abdominal pain. States the symptoms started on 2016 and have persisted. States this is how it feels when he has a Crohn's flareup. Patient states his last bowel movement was on Sunday prior to this. Denies any nausea, vomiting, fever or chills. States he has had little bits of intermittent flatus. Patient is still on a steroid taper dose of 10 mg prednisone. Patient was most recently admitted last month for a small bowel obstruction and underwent colonic dilation 12 mm for a severe stenosis at the coloenteric anastamosis. Surgery has been consulted and the patient seen by Dr. Lara during this hospitalization. Patient continues to take his prednisone and Humira shots. Patient denies any other pain anywhere else or any other medical history. hhe was managed conservatively with IVF, NPO and pain meds he improved cliniclaly and was gradually able to tolerate sof diet, had bowel movements and no worseing of pain, nausea or vomtiing. he was also seen by DR. vasquez and recoomended to f/u as OP for now and no need for urgent surgery since his symptoms have resolved. HE however may need surgery if his symptoms persist or worsen. wallace is being dc in stable condition adn will f/u with surgery in 3-4 weeks Hospital course: Mr. De Souza is a 41 year old male Time spent discussing smoking cessation with patient: more than 10 minutes - Time Spent with Patient Total time spent providing and/or coordinating discharge services: Greater than 30 minutes - Constitutional Vitals: Temp Pulse Resp BP Pulse Ox 98.2 F 63 16 146/75 99 03/03/17 15:12 03/03/17 15:12 03/03/17 15:12 03/03/17 15:12 03/03/17 15:12 General appearance: Present: A&O X 3, no acute distress Exam: - Head Head exam: Present: atraumatic, normocephalic - Eye Eye exam: Present: normal appearance, sclera anicteric - ENT ENT exam: Present: mucous membranes moist - Neck Neck exam general surgery: Present: normal inspection, trachea midline - Respiratory Respiratory exam: Present: CTAB - Cardiovascular Cardiovascular exam: Present: RRR, +S1, +S2 - GI/Abdominal GI/Abdominal exam: Present: normal bowel sounds, soft, no peritoneal signs - Rectal Rectal exam: Present: deferred - Extremities Exam Extremities exam: Present: warm - Neurological Exam Neurological exam: Present: no focal deficits - Psychiatric Psychiatric exam: Present: normal affect, normal mood - Skin Skin exam: Present: rash
== END 2017-03-03 16:49 | disposition home or self-care (01) | DRG 247 ==
LOC: EMEROO 11:34 → 3ANU 11:34
PROVIDERS: ADMIT Registered Nurse; ATTEND Internal Medicine Endocrinology, Diabetes & Metabolism

== ENCOUNTER 2017-04-20 09:39 | Inpatient (IN) ==
--- NOTE | 2017-04-20 09:50 | History & Physical Report ---
Date of Encounter: 04/20/17 Time of Encounter: 09:50 24 Hour HP Update - Instructions Instructions: If the History and Physical is less than 30 days old and was completed prior to A.M. admission and or procedure and has NOT been updated on calendar day of procedure please complete this update prior to performing procedure. - Update Patient reports changes in Medical Condition: No Changes in examination, assessment, or condition: No Changes in Medication: No Preop tests/diagnostics Reviewed: Yes Pre-Op MRSA Screen: Negative Surgery Remains Indicated: Yes Consent for Planned Operative Procedure(s) Verified: Yes - Pre-Operative Checklist Preoperative Checklist Indicated: No Prophylactic Antibiotic Ordered: Yes Home Medications Include Beta Krish: No Beta Krish Taken Today (Day of Surgery): No Beta Krish Taken Yesterday (Day Prior to Surgery): No Is VTE Prophylaxis Indicated?: NO
[2017-04-20] MEDS ORDERED: Lidocaine -MPF 1% 2 ML VIAL ID ONE (10:08)
[2017-04-20] MEDS ORDERED: cefOXitin 2,000 MG in D5% in Water (Mini-Bag+) 100 ML IVPB ONE (10:08)
[2017-04-20] MEDS ORDERED: Ringers Solution, Lactated 1,000 ML IVC SCH (10:15)
--- NOTE | 2017-04-20 10:31 | Anesthesia Evaluation PreOp ---
Date of Encounter: 04/20/17 Time of Encounter: 10:29 - Past History Planned Operation: Diagnostic Laparoscopy, Small Bowel Resection Cardiac History: Denies any Significant Hx Pulmonary History: Former smoker (quit 2 months ago, smoked for 25+ years) [employer] History: Denies Any Significant HX Other Medical History: GERD Anesthesia History: No Prior Anesthetic Complications, Past Anesthesia Alcohol Use: heavy (quit months ago, drank 6+ beers daily) Drug use: none Medications and Allergies Adalimumab [Humira] 40 mg SQ Q2W 02/10/17 [History] Omeprazole [PriLOSEC] 40 mg PO DAILY 02/10/17 [History] HYDROcodone/Acet 5/325 mg [[place] 5-325 mg] 1 tab PO Q6H PRN #30 tab 03/03/17 [Rx ] Allergies No Known Allergies Allergy (Verified 02/10/17 09:03) - Meds/Allergy Pre-op Review Medications Reviewed: Yes Allergies Reviewed: Yes Beta Blockers on Current Med List: No Anesthesia Results - Labs 04/20/17 09:58 Laboratory Tests 04/03/17 04/03/17 04/20/17 15:45 15:45 09:58 WBC 9.4 Hgb 11.6 L Hct 33.8 L Plt Count 319 Sodium 139 Potassium 3.4 L BUN 11 Creatinine 0.76 - Imaging Additional studies: 12/18/2014 Stress Impressions: Stress ECG was negative for ischemia at 89% MPHR. Baseline ECG demonstrates NSR with early repolarization abnormality that normalizes during exercise. ST segments could adequately be interpreted. Exercise capacity was excellent, achieving 14 METS. Normal hemodynamic response to exercise. No arrhythmias noted with stress. Patient had no chest pain with stress. Anesthesia Exam O2 Sat Height 1.75 m Height 1.75 m Weight 49.895 kg Weight 49.895 kg O2 Sat by Pulse Oximetry 99 Vital Signs Temp Pulse Resp BP Pulse Ox 97.5 F L 80 18 121/83 99 04/20/17 10:05 04/20/17 10:05 04/20/17 10:05 04/20/17 10:05 04/20/17 10:05 Height: 5'9'' Weight: 110 lbs NPO (# of Hours): 8 Pain Scale: 0 Pain Scale Used: Numeric (1 - 10) - HEENT Pupil (Motor): EOMI Mallampati: II Teeth: Edentulous Denture Type: Upper: Complete Oral Opening: Greater than 3 - [employer] LOC: Oriented [employer] Motor: Normal RUE, Normal LUE, Normal RLE, Normal LLE, Normal Face [employer] Sensory: Normal: RUE, LUE, RLE, LLE, Face - Cardiac Rhythm: Regular Murmur: None - Pulmonary Breath Sounds: bilateral Clear Respiratory Effort: Symmetrical Anesthesia Assess/Plan ASA Score: 2 Modified [place] Scale for Level of Consciousness: Cooperative, oriented, and tranquil Anesthetic Plan: General Monitoring Plan: Standard Monitors Recovery Plan: PACU
[2017-04-20] MEDS ORDERED: Albuterol 2.5 MG/3 ML NEBULIZER ONE (10:38)
[2017-04-20] MEDS ORDERED: Albuterol 2.5 MG/3 ML NEBULIZER IH ONE (10:44)
[2017-04-20] MEDS ORDERED: Lidocaine -MPF 4% 5 ML AMPUL ONE (11:02)
[2017-04-20] MEDS ORDERED: Ondansetron 4 MG/2 ML VIAL ONE (11:02)
[2017-04-20] MEDS ORDERED: *HR* Midazolam HCl 2 MG/2 ML VIAL ONE (11:02)
[2017-04-20] MEDS ORDERED: *HR* Propofol 200 MG/20 ML VIAL IVP ONE (11:02)
[2017-04-20] MEDS ORDERED: *HR* FentaNYL (PF) 100 MCG/2 ML VIAL ONE (11:02)
[2017-04-20] MEDS ORDERED: Neostigmine Methylsulfate 3 MG/3 ML SYRINGE ONE (11:02)
[2017-04-20] MEDS ORDERED: *HR* Rocuronium Bromide 50 MG/5 ML VIAL ONE (11:02)
[2017-04-20] MEDS ORDERED: *HR* Phenylephrine 10 MG/ML VIAL ONE (11:02)
[2017-04-20] MEDS ORDERED: Dexamethasone 4 MG/ML VIAL ONE (11:02)
[2017-04-20] MEDS ORDERED: Lidocaine -MPF 2% 2 ML VIAL ONE (11:02)
[2017-04-20] MEDS ORDERED: *HR* Succinylcholine 200 MG/10 ML VIAL IVP ONE (11:02)
[2017-04-20] MEDS ORDERED: *HR* HYDROmorphone 2 MG/ML SYRINGE ONE (11:26)
[2017-04-20] MEDS ORDERED: *HR* Promethazine 25 MG/ML VIAL IVP PRN (11:48)
[2017-04-20] MEDS ORDERED: *HR* Metoprolol 5 MG/5 ML VIAL IVP ONE (12:34)
[2017-04-20] MEDS ORDERED: CefOXitin 1,000 MG VIAL ONE (13:12)
--- NOTE | 2017-04-20 14:02 | Operative Note ---
Date of procedure: 04/20/17 Pre-op diagnosis: Partial small bowel obstruction; anastamotic stricture Procedure: 1. Laparoscopic lysis of adhensions (45min) 2. Laparoscopic assisted resection of anastamosis with side to side anastamosis. Anesthesia: RANDY Surgeon: Arnoldo Vasquez Gate Agent Other: Frankie Walker CST Estimated blood loss (cc): 70 Specimen: ilieal colonic anastamosis Condition: stable Disposition: PACU Procedure in Detail: Date of surgery: 04/20/17 After properly can find the patient, the patient was brought to the operating room and placed in a supine position. After proper IV sedation was achieved followed by general endotracheal intubation, the patient's abdomen was prepped and draped in normal sterile fashion. A timeout was performed noting the patient's name and type of procedure to be performed. A 15 blade scalpel was used to make an incision in the left lower quadrant followed by placement of a 12 mm Visiport through the incision. A Visiport was used to dissect the subcutaneous tissue, external and internal oblique fascia, and transversalis abdominous fascia until the abdomen was entered. A laparoscopic camera was placed to the port which showed no injury to the intra-abdominal organs upon entry. The abdomen was insufflated with carbon dioxide and visualization showed no evidence of adhesions to the abdominal wall along the midline. A 15 blade scalpel was used to make a vertical infraumbilical incision along the patient's previous midline incision. A 12 mm port was placed to the incision followed by placement of the suprapubic 5 mm port under direct camera visualization. Was evidence of small bowel adhesions to the right lower quadrant from the patient's previous ileocolonic resection. This was also year with the patient' s stenosis was noted by endoscopy. Bovie cauterization and sharp dissection with a used to dissect the small bowel segments away from the abdominal wall fascia. An enterotomy was created during dissection phase at the level of the anastomosis which was an anticipated and expected consequence given this patient 's previous surgical history and history of Crohn's disease. After further dissection was performed sharp laparoscopic scissors incision was then made to convert this to the open portion of the surgery to allow for further dissection and resection. A 10 blade scalpel was used to connect the 5 mm port to the 12 mm infraumbilical port on the midline along the patient's previous incision. The dissection was carried to the abdominal fascia and the abdomen was then entered. Dilated loops of the small bowel and the anastomosis were extruded through the abdominal incision and this allowed for visualization of the defect/ stenotic anastomosis. The small bowel segment which was thought to be the distal ileum was transected with a GANGA stapler. The ascending colonic anastomosis was also freed from the sidewall attachments and from the surrounding adhesions with Bovie cauterization. The ascending colon was likewise transected with a GANGA stapler and the intervening segment of the small bowel and ileocolonic anastomosis were removed for further inspection and submitted to pathology. Total time for lysis of adhesions was approximately 45 minutes (laparoscopically). The decision was made to perform a [id number] anastomosis utilizing a GANGA stapler. Once this was performed the intervening enterotomy was closed with a TA stapler. The abdomen was irrigated with normal saline solution containing Mefoxin and no evidence of active bleeding was identified. The decision was made to place Seprafilm within the abdomen and close the midline incision with a #1 looped PDS suture 2. The epidermal and dermal layers were reapproximated with irene. The left lower quadrant 12 mm port was closed by reapproximating the abdominal wall fascia with 0 Vicryl sutures and the epidermal and dermal layer with irene. Needle, sponge, and instrument counts were correct 2 and the incisions were covered with 4 x 4's. The patient was aroused from IV sedation, extubated in the operating room without complication, and transported to the recovery room stable condition.
[2017-04-20] MEDS ORDERED: *HR* HYDROmorphone (PF) 1 MG/ML SYRINGE ONE (14:23)
[2017-04-20] MEDS: *HR* HYDROmorphone (PF) 1 MG/ML SYRINGE IVP PRN ×4 (14:25→21:41)
--- NOTE | 2017-04-20 14:56 | Anesthesia Evaluation Post Op ---
Date of Encounter: 04/20/17 Time of Encounter: 14:56 - Vital Signs Vital Signs: Vital Signs/O2 Sat, Most Current Temp Pulse Resp BP Pulse Ox 96.8 F L 79 14 146/103 100 04/20/17 13:55 04/20/17 14:15 04/20/17 14:15 04/20/17 14:15 04/20/17 14:15 - Lungs Lungs: Clear Ascult./Percussion - Airway Airway: Non-obstructed - Cardiovascular Regular Rate - Mental Status Mental Status: Asleep with brisk response to light stimulation - Pain Pain Scale: 5 Pain Scale used: Numeric (1 - 10) - Nausea Vomiting Nausea Vomiting: Not Present - Hydration Hydration: NPO, Has not voided - Discharge PostOp Status: Transfer Patient to floor
[2017-04-20] MEDS ORDERED: Ondansetron 4 MG/2 ML VIAL IVP PRN (15:34)
[2017-04-20] MEDS: Piperacillin/Tazobactam 3.375 GM in D5% in Water (Mini-Bag+) 100 ML IVPB SCH (16:33)
[2017-04-20] MEDS: 0.9 % Sodium Chloride 1,000 ML IVC SCH (16:33)
[2017-04-20] MEDS: *HR* Heparin 5,000 UNIT/ML VIAL SQ SCH (16:43)
[2017-04-21] MEDS: *HR* HYDROmorphone (PF) 1 MG/ML SYRINGE IVP PRN ×3 (00:34→10:05)
[2017-04-21] MEDS: Piperacillin/Tazobactam 3.375 GM in D5% in Water (Mini-Bag+) 100 ML IVPB SCH ×2 (00:35→08:04)
[2017-04-21] MEDS: *HR* Heparin 5,000 UNIT/ML VIAL SQ SCH ×2 (05:28→18:06)
[2017-04-21] MEDS: 0.9 % Sodium Chloride 1,000 ML IVC SCH ×2 (05:28→14:48)
[2017-04-21 05:46] LABS: Basophils # 0.1 K/mcL (0.0-0.2); Basophils % 0.4 %; Hematocrit 33.6 % (37.5-50.1); Hemoglobin 11.8 g/dL (12.9-16.9); Immature Granulocytes % 2.5 % (0-4); Lymphocytes # 1.7 K/mcL (0.6-4.6); Lymphocytes % 7.8 %; Mean Corpuscular HGB Conc 35.1 g/dL (31.6-35.5); Mean Corpuscular Volume 93.9 fL (83.0-100.0); Mean Platelet Volume 8.2 fL (9.4-12.4); Monocytes # 1.4 K/mcL (0.0-1.3); Monocytes % 6.4 %; Neutrophils # 17.9 K/mcL (1.6-8.9); Platelet Count 308 K/mcL (140-400); Red Blood Count 3.58 M/mcL (4.19-5.50); Red Cell Distribution Width 13.1 % (11.5-14.5); Segmented Neutrophils % 82.9 %
[2017-04-21 06:03] LABS: BUN/Creatinine Ratio 9 (6-26); Blood Urea Nitrogen 7 mg/dL (8-26); Calcium 7.7 mg/dL (8.6-10.8); Carbon Dioxide 22 mEq/L (19-29); Chloride 103 mEq/L (98-109); Glucose 107 mg/dL (70-99); Osmolality,Calculated 274 (280-300); Potassium 3.8 mEq/L (3.5-4.5); Sodium 133 mEq/L (136-145); eGFR For African Americans > 60 (> 60); eGFR For Non-African Americans > 60 (> 60)
[2017-04-21 06:06] LABS: Platelet Estimate Normal (Normal)
[2017-04-21] MEDS: Pantoprazole 40 MG VIAL IVP SCH (08:04)
[2017-04-21] MEDS ORDERED: Acetaminophen IV 1,000 MG/100 ML INFUS..BTL IVPB SCH (13:40)
[2017-04-21] MEDS ORDERED: Naloxone 0.4 MG/ML INJ IVP PRN (18:27)
--- NOTE | 2017-04-21 18:30 | General Surgery Progress Note ---
Date of Encounter: 04/21/17 Time of Encounter: 14:05 - Assessment and Plan (1) S/P small bowel resection Current Visit: Yes Status: Acute post op FITZ, sbr for anastomotic stricture no flatus or bm - await return of bowel function prn pain control urinary retention - kelly placed leukocystosis - continue Abx (2) Crohn disease Current Visit: No Status: Chronic hold humira Qualifiers: Gastrointestinal tract location: small and large intestine Digestive disease complication type: with intestinal obstruction Qualified Code(s): K50.812 - Crohn's disease of both small and large intestine with intestinal obstruction (3) DVT prophylaxis Current Visit: No Status: Acute (4) Tobacco abuse Current Visit: No Status: Chronic (5) Protein-calorie malnutrition, severe Current Visit: No Status: Chronic (6) Urinary retention Current Visit: Yes Status: Acute check urine culture continue kelly for urinary retention (7) Leukocytosis Current Visit: Yes Status: Acute trend wbc, continue abx currently Qualifiers: Leukocytosis type: unspecified Qualified Code(s): D72.829 - Elevated white blood cell count, unspecified Subjective Patient reports: no new complaints, feels better, still having pain, no flatus, no bowel movement, afebrile Narrative: no nausea was unable to urinate and catheter placed Objective Vital Signs - Last 8 Hours Temp Pulse Resp BP Pulse Ox 04/21/17 15:26 97.9 F 80 16 124/82 98 04/21/17 10:52 97.4 F L 69 16 128/79 97 Intake and Output 04/21/17 04/21/17 04/21/17 07:59 15:59 23:59 Intake Total 1100 / 1100 1000 / 1000 100 / 100 Output Total 0 / 0 450 / 450 Balance 1100 / 1100 550 / 550 100 / 100 Intake: IV Fluids 1100 / 1100 1000 / 1000 100 / 100 0.9 % Sodium Chloride 1, 1000 / 1000 1000 / 1000 000 ML @ 100 mls/hr IVC . Q10H [facility] Rx#:[id number] Ofirmev 1,000 mg/100 ml 1 100 / 100 ,000 mg In 100 ml @ 400 mls/hr IVPB Q8H [facility] Rx#: [id number] Zosyn 3.375 GM In 100 / 100 Dextrose 5% (Minibag+) 100 ML 100 ML @ 25 mls/hr IVPB Q8HR [facility] Rx#: [id number] Oral 0 / 0 0 / 0 0 / 0 Output: Urine 0 / 0 450 / 450 Catheter 0 / 0 Gastric Drainage 0 / 0 0 / 0 Other: Meal NPO NPO Percent of Meal Consumed 0% 0% # Bowel Movements 0 Weight 51.3 kg Blood Glucose* 95 98 71 Patient Weight 04/21/17 23:59 Weight 51.3 kg - General physical appearance no distress, cachectic, chronically ill - ENT dry mucosa, atraumatic, normocephalic - Neck Neck exam: trachea midline - Respiratory normal expansion, clear to auscultation - Cardiovascular Cardiovascular exam: Present: RRR - Abdomen Abdomen: Present: soft, tender (diffusely but appropriate post op). Absent: bowel sounds present - Incision Incision: Present: clean and dry, intact - Genitourinary other (kelly in place) - Neurologic CN 2-12 grossly intact - Musculoskeletal normal posture - Psychiatric oriented to time, memory intact - Labs 04/21/17 05:20 04/21/17 05:20 Diabetes panel 04/21/17 Range/Units 05:20 Sodium 133 L (136-145) mEq/L Potassium 3.8 (3.5-4.5) mEq/L Chloride 103 (98-109) mEq/L Carbon Dioxide 22 (19-29) mEq/L BUN 7 L (8-26) mg/dL Creatinine 0.76 (0.72-1.25) mg/dL Glucose 107 H (70-99) mg/dL Calcium 7.7 L (8.6-10.8) mg/dL Calcium panel 04/21/17 Range/Units 05:20 Calcium 7.7 L (8.6-10.8) mg/dL Pituitary panel 04/21/17 Range/Units 05:20 Sodium 133 L (136-145) mEq/L Potassium 3.8 (3.5-4.5) mEq/L Chloride 103 (98-109) mEq/L Carbon Dioxide 22 (19-29) mEq/L BUN 7 L (8-26) mg/dL Creatinine 0.76 (0.72-1.25) mg/dL Glucose 107 H (70-99) mg/dL Calcium 7.7 L (8.6-10.8) mg/dL Adrenal panel 04/21/17 Range/Units 05:20 Sodium 133 L (136-145) mEq/L Potassium 3.8 (3.5-4.5) mEq/L Chloride 103 (98-109) mEq/L Carbon Dioxide 22 (19-29) mEq/L BUN 7 L (8-26) mg/dL Creatinine 0.76 (0.72-1.25) mg/dL Glucose 107 H (70-99) mg/dL Calcium 7.7 L (8.6-10.8) mg/dL - VTE Documentation of Mechanical Device: Intermittent pneumatic compression device Consult Discharge Plan - Plan Referrals: Arnoldo Vasquez MD [Partnered Physician] - 05/02/17 11:00 am Oumou Eagle MD [Primary Care Provider] -
[2017-04-21] MEDS: Acetaminophen IV 1,000 MG/100 ML INFUS..BTL IVPB SCH (21:46)
[2017-04-22] MEDS: Piperacillin/Tazobactam 3.375 GM in D5% in Water (Mini-Bag+) 100 ML IVPB SCH ×4 (00:01→23:55)
[2017-04-22] MEDS: 0.9 % Sodium Chloride 1,000 ML IVC SCH (01:25)
[2017-04-22 04:00] LABS: Basophils # 0.1 K/mcL (0.0-0.2); Basophils % 0.3 %; Eosinophils % 0.1 %; Hematocrit 30.4 % (37.5-50.1); Hemoglobin 10.3 g/dL (12.9-16.9); Immature Granulocytes % 3.2 % (0-4); Lymphocytes # 1.5 K/mcL (0.6-4.6); Lymphocytes % 10.3 %; Mean Corpuscular HGB Conc 33.9 g/dL (31.6-35.5); Mean Corpuscular Hemoglobin 31.8 pg (28.0-33.3); Mean Corpuscular Volume 93.8 fL (83.0-100.0); Mean Platelet Volume 7.8 fL (9.4-12.4); Monocytes % 6.7 %; Neutrophils # 11.7 K/mcL (1.6-8.9); Platelet Count 293 K/mcL (140-400); Red Blood Count 3.24 M/mcL (4.19-5.50); Red Cell Distribution Width 13.3 % (11.5-14.5); Segmented Neutrophils % 79.4 %
[2017-04-22 04:09] LABS: BUN/Creatinine Ratio 9 (6-26); Blood Urea Nitrogen 6 mg/dL (8-26); Calcium 7.6 mg/dL (8.6-10.8); Carbon Dioxide 25 mEq/L (19-29); Chloride 103 mEq/L (98-109); Glucose 78 mg/dL (70-99); Magnesium 1.2 mg/dL (1.6-2.6); Osmolality,Calculated 276 (280-300); Phosphorous 2.7 mg/dL (2.3-4.7); Potassium 3.8 mEq/L (3.5-4.5); Sodium 135 mEq/L (136-145); eGFR For African Americans > 60 (> 60); eGFR For Non-African Americans > 60 (> 60)
[2017-04-22] MEDS: *HR* HYDROmorphone (PF) 1 MG/ML SYRINGE IVP PRN ×2 (04:32→20:37)
[2017-04-22] MEDS: *HR* Heparin 5,000 UNIT/ML VIAL SQ SCH ×2 (05:53→17:26)
[2017-04-22] MEDS: Acetaminophen IV 1,000 MG/100 ML INFUS..BTL IVPB SCH ×3 (05:53→21:44)
[2017-04-22] MEDS ORDERED: *HR* Dextrose 50 % in Water (Syg) 50 ML SYRINGE IVP PRN (06:04)
[2017-04-22] MEDS: D5% in 0.45% NACL 1,000 ML IVC SCH ×2 (06:26→17:26)
[2017-04-22] MEDS: Pantoprazole 40 MG VIAL IVP SCH (08:37)
[2017-04-22] MEDS ORDERED: Magnesium Sulfate 2 GM in D5% in Water 100 ML IVPB ONE (08:46)
--- NOTE | 2017-04-22 11:52 | General Surgery Progress Note ---
Date of Encounter: 04/22/17 Time of Encounter: 11:50 - Assessment and Plan (1) S/P small bowel resection Current Visit: Yes Status: Acute post op FITZ, sbr for anastomotic stricture no flatus or bm - await return of bowel function prn pain control urinary retention - kelly placed leukocystosis - continue Abx - wbc decreased last 24 hr (2) Crohn disease Current Visit: No Status: Chronic hold humira Qualifiers: Gastrointestinal tract location: small and large intestine Digestive disease complication type: with intestinal obstruction Qualified Code(s): K50.812 - Crohn's disease of both small and large intestine with intestinal obstruction (3) DVT prophylaxis Current Visit: No Status: Acute heparin sq (4) Tobacco abuse Current Visit: No Status: Chronic (5) Protein-calorie malnutrition, severe Current Visit: No Status: Chronic may need picc/tpn (6) Urinary retention Current Visit: Yes Status: Acute urine culture pending continue kelly for urinary retention (7) Leukocytosis Current Visit: Yes Status: Acute trend wbc, continue abx currently Qualifiers: Leukocytosis type: unspecified Qualified Code(s): D72.829 - Elevated white blood cell count, unspecified Subjective Patient reports: no new complaints, still having pain, no flatus, bowel movement Objective Vital Signs - Last 8 Hours Temp Pulse Resp BP Pulse Ox 04/22/17 11:00 98.3 F 62 16 133/84 99 04/22/17 07:45 98 04/22/17 07:00 97.5 F L 65 17 121/81 98 Intake and Output 04/21/17 04/22/17 04/22/17 23:59 07:59 15:59 Intake Total 200 / 200 1704 / 1704 Output Total 175 / 175 400 / 400 Balance 1304 / 1304 Intake: IV Fluids 200 / 200 1704 / 1704 0.9 % Sodium Chloride 1, 1504 / 1504 000 ML @ 100 mls/hr IVC . Q10H [facility] Rx#:[id number] Ofirmev 1,000 mg/100 ml 1 200 / 200 100 / 100 ,000 mg In 100 ml @ 400 mls/hr IVPB Q8H [facility] Rx#: [id number] Zosyn 3.375 GM In 100 / 100 Dextrose 5% (Minibag+) 100 ML 100 ML @ 25 mls/hr IVPB Q8HR [facility] Rx#: [id number] Oral 0 / 0 0 / 0 Output: Catheter 175 / 175 Gastric Drainage 400 / 400 Other: Meal NPO Percent of Meal Consumed 0% Weight 54.3 kg Blood Glucose* 69 62 148 Patient Weight 04/22/17 23:59 Weight 54.3 kg - General physical appearance no distress, cachectic, chronically ill - Eyes PERRL, normal ocular movement - ENT dry mucosa, atraumatic - Neck Neck exam: trachea midline - Respiratory normal expansion, clear to auscultation - Cardiovascular Cardiovascular exam: Present: RRR - Abdomen Abdomen: Present: soft, tender (appropriate post op tenderness). Absent: bowel sounds present - Incision Incision: Present: clean and dry, intact - Integumentary other (right forehead wound - pt is treating with aquaphor) - Musculoskeletal normal posture - Psychiatric oriented to time, oriented to person, oriented to place, memory intact - Labs 04/22/17 03:46 04/22/17 03:46 Short CBC 04/22/17 Range/Units 03:46 WBC 14.7 H (4.3-11.1) K/mcL Hgb 10.3 L D (12.9-16.9) g/dL Hct 30.4 L (37.5-50.1) % Plt Count 293 (140-400) K/mcL Neutrophils # 11.7 H (1.6-8.9) K/mcL BMP 04/22/17 Range/Units 03:46 Sodium 135 L (136-145) mEq/L Potassium 3.8 (3.5-4.5) mEq/L Chloride 103 (98-109) mEq/L Carbon Dioxide 25 (19-29) mEq/L BUN 6 L (8-26) mg/dL Creatinine 0.68 L (0.72-1.25) mg/dL Glucose 78 (70-99) mg/dL Calcium 7.6 L (8.6-10.8) mg/dL Vital Signs Temp Pulse Resp BP Pulse Ox 04/22/17 11:00 98.3 F 62 16 133/84 99 04/22/17 07:45 98 04/22/17 07:00 97.5 F L 65 17 121/81 98 04/22/17 03:17 97.6 F 68 18 150/88 99 04/21/17 23:22 97.6 F 67 18 130/80 97 04/21/17 18:46 98.1 F 60 18 130/79 99 04/21/17 15:26 97.9 F 80 16 124/82 98 Intake and Output 04/21/17 04/22/17 04/22/17 23:59 07:59 15:59 Intake Total 200 / 200 1704 / 1704 Output Total 175 / 175 400 / 400 Balance 1304 / 1304 Intake: IV Fluids 200 / 200 1704 / 1704 0.9 % Sodium Chloride 1, 1504 / 1504 000 ML @ 100 mls/hr IVC . Q10H [facility] Rx#:[id number] Ofirmev 1,000 mg/100 ml 1 200 / 200 100 / 100 ,000 mg In 100 ml @ 400 mls/hr IVPB Q8H [facility] Rx#: [id number] Zosyn 3.375 GM In 100 / 100 Dextrose 5% (Minibag+) 100 ML 100 ML @ 25 mls/hr IVPB Q8HR [facility] Rx#: [id number] Oral 0 / 0 0 / 0 Output: Catheter 175 / 175 Gastric Drainage 400 / 400 Other: Meal NPO Percent of Meal Consumed 0% Weight 54.3 kg Blood Glucose* 69 62 148 Patient Weight 04/22/17 23:59 Weight 54.3 kg - VTE Documentation of Mechanical Device: Intermittent pneumatic compression device Consult Discharge Plan - Plan Referrals: Arnoldo Vasquez MD [Partnered Physician] - 05/02/17 11:00 am Oumou Eagle MD [Primary Care Provider] -
[2017-04-23] MEDS: D5% in 0.45% NACL 1,000 ML IVC SCH (03:47)
[2017-04-23] MEDS: *HR* HYDROmorphone (PF) 1 MG/ML SYRINGE IVP PRN ×4 (03:50→20:45)
[2017-04-23 04:40] LABS: Basophils # 0.1 K/mcL (0.0-0.2); Basophils % 0.4 %; Eosinophils # 0.1 K/mcL (0.0-0.6); Eosinophils % 0.4 %; Immature Granulocytes % 4.2 % (0-4); Lymphocytes # 1.4 K/mcL (0.6-4.6); Lymphocytes % 11.6 %; Mean Corpuscular HGB Conc 34.5 g/dL (31.6-35.5); Mean Corpuscular Hemoglobin 32.2 pg (28.0-33.3); Mean Corpuscular Volume 93.2 fL (83.0-100.0); Mean Platelet Volume 8.1 fL (9.4-12.4); Monocytes # 0.9 K/mcL (0.0-1.3); Monocytes % 7.5 %; Platelet Count 307 K/mcL (140-400); Red Blood Count 3.11 M/mcL (4.19-5.50); Red Cell Distribution Width 13.2 % (11.5-14.5); Segmented Neutrophils % 75.9 %
[2017-04-23 04:54] LABS: BUN/Creatinine Ratio 5 (6-26); Calcium 7.2 mg/dL (8.6-10.8); Carbon Dioxide 29 mEq/L (19-29); Chloride 99 mEq/L (98-109); Glucose 110 mg/dL (70-99); Magnesium 1.3 mg/dL (1.6-2.6); Osmolality,Calculated 269 (280-300); Phosphorous 1.6 mg/dL (2.3-4.7); Sodium 131 mEq/L (136-145); eGFR For African Americans > 60 (> 60); eGFR For Non-African Americans > 60 (> 60)
[2017-04-23 04:58] LABS: Blood Urea Nitrogen 3 mg/dL (8-26); Potassium 2.6 mEq/L (3.5-4.5)
[2017-04-23] MEDS: *HR* Heparin 5,000 UNIT/ML VIAL SQ SCH ×2 (05:55→17:19)
[2017-04-23] MEDS: Acetaminophen IV 1,000 MG/100 ML INFUS..BTL IVPB SCH ×2 (05:55→13:20)
[2017-04-23] MEDS: Pantoprazole 40 MG VIAL IVP SCH (08:01)
[2017-04-23] MEDS: Piperacillin/Tazobactam 3.375 GM in D5% in Water (Mini-Bag+) 100 ML IVPB SCH ×2 (08:02→17:21)
[2017-04-23] MEDS ORDERED: Potassium Chloride 40 MEQ, Lidocaine 1% 2 ML in D5% in Water 500 ML IVPB ONE (11:23)
[2017-04-23] MEDS: D5% in 0.45% NACL w KCl 20 MEQ/1,000 ML MLS IVC SCH (12:33)
--- NOTE | 2017-04-23 13:07 | General Surgery Progress Note ---
<Mohit Nieto - Last Filed: 04/23/17 13:05> Date of Encounter: 04/23/17 Time of Encounter: 08:45 - Assessment and Plan (1) S/P small bowel resection Current Visit: Yes Status: Acute Patient still has not passed flatus or had a BM, so NG tube will need to stay for now Encouraged OOB Continue IVF Pain control (2) Crohn disease Current Visit: No Status: Chronic holding humira Qualifiers: Gastrointestinal tract location: small and large intestine Digestive disease complication type: with intestinal obstruction Qualified Code(s): K50.812 - Crohn's disease of both small and large intestine with intestinal obstruction (3) DVT prophylaxis Current Visit: No Status: Acute Continue subq heparin (4) Urinary retention Current Visit: Yes Status: Acute Mendez catheter placed (5) Leukocytosis Current Visit: Yes Status: Acute Secondary to steroid course? Complete course of antibiotics Qualifiers: Leukocytosis type: unspecified Qualified Code(s): D72.829 - Elevated white blood cell count, unspecified (6) Hypokalemia Current Visit: Yes Status: Acute Started potassium and magnesium replacement Will monitor with morning labs (7) Protein-calorie malnutrition, severe Current Visit: No Status: Chronic Will consider pic and tpn if bowel does not improve in the next 24 hrs Subjective Patient reports: feels better, pain is less, no flatus, no bowel movement, afebrile Narrative: Patient complains of discomfort with NG tube, causing him to cough, which in turn causes pain. Objective Vital Signs - Last 8 Hours Temp Pulse Resp BP Pulse Ox 04/23/17 11:11 98.1 F 74 12 138/83 92 04/23/17 07:49 97.9 F 62 12 140/77 99 Intake and Output 04/22/17 04/23/17 04/23/17 23:59 07:59 15:59 Intake Total 1200 / 1200 1100 / 1100 0 / 0 Output Total 1200 / 1200 400 / 400 550 / 550 Balance 0 / 0 700 / 700 -550 / -550 Intake: IV Fluids 1200 / 1200 1100 / 1100 D5% And 0.45% Nacl 1000 1000 / 1000 1000 / 1000 Ml Bag 1,000 ML @ 100 mls /hr IVC .Q10H [facility] Rx#: [id number] Ofirmev 1,000 mg/100 ml 1 100 / 100 ,000 mg In 100 ml @ 400 mls/hr IVPB Q8H [facility] Rx#: [id number] Zosyn 3.375 GM In 100 / 100 100 / 100 Dextrose 5% (Minibag+) 100 ML 100 ML @ 25 mls/hr IVPB Q8HR [facility] Rx#: [id number] Oral 0 / 0 Output: Urine 250 / 250 Catheter 600 / 600 150 / 150 550 / 550 Gastric Drainage 600 / 600 Other: Meal NPO NPO Percent of Meal Consumed 0% Weight 54.8 kg Blood Glucose* 135 129 108 Patient Weight 04/23/17 23:59 Weight 54.8 kg - General physical appearance well developed, no distress, chronically ill - Eyes normal ocular movement - ENT atraumatic, normocephalic - Neck Neck exam: trachea midline - Respiratory normal expansion, normal respiratory effort - Cardiovascular Cardiovascular exam: Present: RRR - Abdomen Abdomen: Present: bowel sounds present, soft, tender (approptiate post-op tenderness) - Neurologic normal coordination - Psychiatric speech is normal - Labs 04/23/17 04:00 04/23/17 04:00 Diabetes panel 04/23/17 Range/Units 04:00 Sodium 131 L (136-145) mEq/L Potassium 2.6 L D (3.5-4.5) mEq/L Chloride 99 (98-109) mEq/L Carbon Dioxide 29 (19-29) mEq/L BUN 3 L (8-26) mg/dL Creatinine 0.62 L (0.72-1.25) mg/dL Glucose 110 H (70-99) mg/dL Calcium 7.2 L (8.6-10.8) mg/dL Calcium panel 04/22/17 04/23/17 Range/Units 03:46 04:00 Calcium 7.2 L (8.6-10.8) mg/dL Phosphorus 1.6 L (2.3-4.7) mg/dL 25-OH Vitamin D Total 31 (30-80) ng/mL Pituitary panel 04/23/17 Range/Units 04:00 Sodium 131 L (136-145) mEq/L Potassium 2.6 L D (3.5-4.5) mEq/L Chloride 99 (98-109) mEq/L Carbon Dioxide 29 (19-29) mEq/L BUN 3 L (8-26) mg/dL Creatinine 0.62 L (0.72-1.25) mg/dL Glucose 110 H (70-99) mg/dL Calcium 7.2 L (8.6-10.8) mg/dL Adrenal panel 04/23/17 Range/Units 04:00 Sodium 131 L (136-145) mEq/L Potassium 2.6 L D (3.5-4.5) mEq/L Chloride 99 (98-109) mEq/L Carbon Dioxide 29 (19-29) mEq/L BUN 3 L (8-26) mg/dL Creatinine 0.62 L (0.72-1.25) mg/dL Glucose 110 H (70-99) mg/dL Calcium 7.2 L (8.6-10.8) mg/dL - VTE Documentation of Mechanical Device: Intermittent pneumatic compression device Consult Discharge Plan - Plan Referrals: Arnoldo Vasquez MD [Partnered Physician] - 05/02/17 11:00 am Oumou Eagle MD [Primary Care Provider] - <Arnoldo Vasquez - Last Filed: 04/23/17 17:43> Date of Encounter: 04/23/17 Objective Vital Signs - Last 8 Hours Temp Pulse Resp BP Pulse Ox 04/23/17 16:36 97.9 F 56 16 132/79 97 04/23/17 11:11 98.1 F 74 12 138/83 92 Intake and Output 04/23/17 04/23/17 04/23/17 07:59 15:59 23:59 Intake Total 1200 / 1200 1300 / 1300 500 / 500 Output Total 400 / 400 550 / 550 1250 / 1250 Balance 800 / 800 750 / 750 -750 / -750 Intake: IV Fluids 1200 / 1200 1300 / 1300 500 / 500 D5% And 0.45% Nacl 1000 1000 / 1000 1000 / 1000 Ml Bag 1,000 ML @ 100 mls /hr IVC .Q10H [facility] Rx#: [id number] Ofirmev 1,000 mg/100 ml 1 100 / 100 100 / 100 ,000 mg In 100 ml @ 400 mls/hr IVPB Q8H [facility] Rx#: [id number] Zosyn 3.375 GM In 100 / 100 100 / 100 Dextrose 5% (Minibag+) 100 ML 100 ML @ 25 mls/hr IVPB Q8HR [facility] Rx#: [id number] KCl 40 MEQ Xylocaine 2 ML 500 / 500 In Dextrose 5% 500 ML @ 130.5 mls/hr IVPB ONCE ONE Rx#:[id number] Oral 0 / 0 Output: Urine 250 / 250 Catheter 150 / 150 550 / 550 1250 / 1250 Other: Meal NPO Percent of Meal Consumed 0% Weight 54.8 kg Blood Glucose* 129 108 Patient Weight 04/23/17 23:59 Weight 54.8 kg - Labs 04/23/17 04:00 04/23/17 04:00 Diabetes panel 04/23/17 Range/Units 04:00 Sodium 131 L (136-145) mEq/L Potassium 2.6 L D (3.5-4.5) mEq/L Chloride 99 (98-109) mEq/L Carbon Dioxide 29 (19-29) mEq/L BUN 3 L (8-26) mg/dL Creatinine 0.62 L (0.72-1.25) mg/dL Glucose 110 H (70-99) mg/dL Calcium 7.2 L (8.6-10.8) mg/dL Calcium panel 04/22/17 04/23/17 Range/Units 03:46 04:00 Calcium 7.2 L (8.6-10.8) mg/dL Phosphorus 1.6 L (2.3-4.7) mg/dL 25-OH Vitamin D Total 31 (30-80) ng/mL Pituitary panel 04/23/17 Range/Units 04:00 Sodium 131 L (136-145) mEq/L Potassium 2.6 L D (3.5-4.5) mEq/L Chloride 99 (98-109) mEq/L Carbon Dioxide 29 (19-29) mEq/L BUN 3 L (8-26) mg/dL Creatinine 0.62 L (0.72-1.25) mg/dL Glucose 110 H (70-99) mg/dL Calcium 7.2 L (8.6-10.8) mg/dL Adrenal panel 04/23/17 Range/Units 04:00 Sodium 131 L (136-145) mEq/L Potassium 2.6 L D (3.5-4.5) mEq/L Chloride 99 (98-109) mEq/L Carbon Dioxide 29 (19-29) mEq/L BUN 3 L (8-26) mg/dL Creatinine 0.62 L (0.72-1.25) mg/dL Glucose 110 H (70-99) mg/dL Calcium 7.2 L (8.6-10.8) mg/dL - Attending Attestation I examined this patient and my medical decision-making was reviewed with the Resident Physician. I agree with the documented findings, disposition and treatment plan as described except to the extent set forth below. I reviewed with the above assessment and evaluation. Await return of bowel function. No bowel sounds present at this time. Continue with NG tube to low intermittent wall suction. Continue with IV fluids.
[2017-04-23] MEDS ORDERED: Magnesium Sulfate 2 GM in D5% in Water 100 ML IVPB ONE (13:10)
[2017-04-24] MEDS: D5% in 0.45% NACL w KCl 20 MEQ/1,000 ML MLS IVC SCH ×3 (00:58→21:33)
[2017-04-24] MEDS: Piperacillin/Tazobactam 3.375 GM in D5% in Water (Mini-Bag+) 100 ML IVPB SCH ×4 (00:58→23:40)
[2017-04-24] MEDS: Acetaminophen IV 1,000 MG/100 ML INFUS..BTL IVPB SCH (00:58)
[2017-04-24] MEDS: *HR* HYDROmorphone (PF) 1 MG/ML SYRINGE IVP PRN ×4 (01:01→21:43)
[2017-04-24 05:01] LABS: Basophils # 0.1 K/mcL (0.0-0.2); Basophils % 0.6 %; Eosinophils % 0.4 %; Hematocrit 29.1 % (37.5-50.1); Hemoglobin 10.1 g/dL (12.9-16.9); Immature Granulocytes % 4.5 % (0-4); Lymphocytes % 19.1 %; Mean Corpuscular HGB Conc 34.7 g/dL (31.6-35.5); Mean Corpuscular Hemoglobin 32.2 pg (28.0-33.3); Mean Corpuscular Volume 92.7 fL (83.0-100.0); Mean Platelet Volume 7.8 fL (9.4-12.4); Monocytes # 0.8 K/mcL (0.0-1.3); Monocytes % 7.9 %; Neutrophils # 7.2 K/mcL (1.6-8.9); Platelet Count 315 K/mcL (140-400); Red Blood Count 3.14 M/mcL (4.19-5.50); Red Cell Distribution Width 13.2 % (11.5-14.5); Segmented Neutrophils % 67.5 %
[2017-04-24 05:16] LABS: BUN/Creatinine Ratio 3 (6-26); Calcium 7.4 mg/dL (8.6-10.8); Carbon Dioxide 31 mEq/L (19-29); Chloride 99 mEq/L (98-109); Glucose 106 mg/dL (70-99); Magnesium 1.5 mg/dL (1.6-2.6); Osmolality,Calculated 277 (280-300); Potassium 2.7 mEq/L (3.5-4.5); Sodium 135 mEq/L (136-145); eGFR For African Americans > 60 (> 60); eGFR For Non-African Americans > 60 (> 60)
[2017-04-24 05:19] LABS: Blood Urea Nitrogen 2 mg/dL (8-26)
[2017-04-24] MEDS: *HR* Heparin 5,000 UNIT/ML VIAL SQ SCH ×2 (06:29→17:43)
[2017-04-24] MEDS: Pantoprazole 40 MG VIAL IVP SCH (08:29)
--- NOTE | 2017-04-24 14:10 | General Surgery Progress Note ---
<Arnoldo Vasquez - Last Filed: 04/24/17 16:13> Date of Encounter: 04/24/17 Objective Vital Signs - Last 8 Hours Temp Pulse Resp BP Pulse Ox 04/24/17 14:20 97.3 F L 59 16 150/81 99 04/24/17 10:59 98.2 F 59 16 154/86 99 Intake and Output 04/24/17 04/24/17 04/24/17 07:59 15:59 23:59 Intake Total 937 / 937 0 / 0 Output Total 1575 / 1575 850 / 850 Balance -638 / -638 -850 / -850 Intake: IV Fluids 937 / 937 KCl 20mEq IN D5%-0.45 737 / 737 NACL 20 meq In 1,000 ml @ 100 mls/hr IVC .Q10H [facility] Rx#:[id number] Ofirmev 1,000 mg/100 ml 1 100 / 100 ,000 mg In 100 ml @ 400 mls/hr IVPB Q8H [facility] Rx#: [id number] Zosyn 3.375 GM In 100 / 100 Dextrose 5% (Minibag+) 100 ML 100 ML @ 25 mls/hr IVPB Q8HR [facility] Rx#: [id number] Oral 0 / 0 0 / 0 Output: Urine 500 / 500 Urethral (Mendez) 500 / 500 Gastric Tube Lavage 200 / 200 Amount Left Nare 200 / 200 Catheter 675 / 675 600 / 600 Gastric Drainage 200 / 200 250 / 250 Other: Meal NPO Percent of Meal Consumed 0% Blood Glucose* 107 120 - Labs 04/24/17 04:43 04/24/17 04:46 Diabetes panel 04/24/17 Range/Units 04:46 Sodium 135 L (136-145) mEq/L Potassium 2.7 L (3.5-4.5) mEq/L Chloride 99 (98-109) mEq/L Carbon Dioxide 31 H (19-29) mEq/L BUN 2 L (8-26) mg/dL Creatinine 0.62 L (0.72-1.25) mg/dL Glucose 106 H (70-99) mg/dL Calcium 7.4 L (8.6-10.8) mg/dL Calcium panel 04/24/17 Range/Units 04:46 Calcium 7.4 L (8.6-10.8) mg/dL Pituitary panel 04/24/17 Range/Units 04:46 Sodium 135 L (136-145) mEq/L Potassium 2.7 L (3.5-4.5) mEq/L Chloride 99 (98-109) mEq/L Carbon Dioxide 31 H (19-29) mEq/L BUN 2 L (8-26) mg/dL Creatinine 0.62 L (0.72-1.25) mg/dL Glucose 106 H (70-99) mg/dL Calcium 7.4 L (8.6-10.8) mg/dL Adrenal panel 04/24/17 Range/Units 04:46 Sodium 135 L (136-145) mEq/L Potassium 2.7 L (3.5-4.5) mEq/L Chloride 99 (98-109) mEq/L Carbon Dioxide 31 H (19-29) mEq/L BUN 2 L (8-26) mg/dL Creatinine 0.62 L (0.72-1.25) mg/dL Glucose 106 H (70-99) mg/dL Calcium 7.4 L (8.6-10.8) mg/dL Consult Discharge Plan - Plan Referrals: Arnoldo Vasquez MD [Partnered Physician] - 05/02/17 11:00 am Oumou Eagle MD [Primary Care Provider] - - Attending Attestation I examined this patient and my medical decision-making was reviewed with the Resident Physician. I agree with the documented findings, disposition and treatment plan as described except to the extent set forth below. Review the assessment and evaluation with the resident. Confusion noted with the documentation of the eyes and nose with regards to the patient's NG tube. Will clamp NG tube. Await for further return of bowel function. Will start daily dressing changes as well. Will encourage out of bed and ambulation particularly with assistance. <Mohit Nieto - Last Filed: 04/24/17 17:22> Date of Encounter: 04/24/17 Time of Encounter: 09:00 - Assessment and Plan (1) S/P small bowel resection Current Visit: Yes Status: Acute POD#4 Patient still has not had flatus or BM He is getting impatient, but NG tube should continue Encouraged continued OOB Continue IVF Pain control (2) Crohn disease Current Visit: No Status: Chronic holding humira Qualifiers: Gastrointestinal tract location: small and large intestine Digestive disease complication type: with intestinal obstruction Qualified Code(s): K50.812 - Crohn's disease of both small and large intestine with intestinal obstruction (3) Urinary retention Current Visit: Yes Status: Acute Mendez catheter placed Will consider removing and fluid challenge when bowel function returns (4) Leukocytosis Current Visit: Yes Status: Resolved Secondary to steroid course? Complete course of antibiotics Qualifiers: Leukocytosis type: unspecified Qualified Code(s): D72.829 - Elevated white blood cell count, unspecified (5) Hypokalemia Current Visit: Yes Status: Acute Improved slightly from 2.6 to 2.7 since yesterday Ordered an additional 40 meq IVPB on top of continuous infusion Will monitor with morning labs (6) Protein-calorie malnutrition, severe Current Visit: No Status: Chronic Will picc and tpn if bowel does not improve in the next 24 hrs (7) DVT prophylaxis Current Visit: No Status: Acute Continue subq heparin Subjective Patient reports: pain is less ("comes and goes" but well controlled), voiding w/ o difficulty, no flatus, no bowel movement, afebrile, other Objective Vital Signs - Last 8 Hours Temp Pulse Resp BP Pulse Ox 04/24/17 10:59 98.2 F 59 16 154/86 99 04/24/17 07:30 98 04/24/17 07:00 97.4 F L 60 16 151/85 98 Intake and Output 04/23/17 04/24/17 04/24/17 23:59 07:59 15:59 Intake Total 1256 / 1256 937 / 937 0 / 0 Output Total 1750 / 1750 1575 / 1575 300 / 300 Balance -494 / -494 -638 / -638 -300 / -300 Intake: IV Fluids 1256 / 1256 937 / 937 KCl 20mEq IN D5%-0.45 656 / 656 737 / 737 NACL 20 meq In 1,000 ml @ 100 mls/hr IVC .Q10H [facility] Rx#:[id number] Ofirmev 1,000 mg/100 ml 1 100 / 100 ,000 mg In 100 ml @ 400 mls/hr IVPB Q8H [facility] Rx#: [id number] Zosyn 3.375 GM In 100 / 100 100 / 100 Dextrose 5% (Minibag+) 100 ML 100 ML @ 25 mls/hr IVPB Q8HR [facility] Rx#: [id number] KCl 40 MEQ Xylocaine 2 ML 500 / 500 In Dextrose 5% 500 ML @ 130.5 mls/hr IVPB ONCE ONE Rx#:[id number] Oral 0 / 0 0 / 0 0 / 0 Output: Urine 0 / 0 500 / 500 Urethral (Mendez) 500 / 500 Gastric Tube Lavage 200 / 200 Amount Left Nare 200 / 200 Catheter 1750 / 1750 675 / 675 300 / 300 Gastric Drainage 0 / 0 200 / 200 0 / 0 Other: Meal NPO Percent of Meal Consumed 0% Blood Glucose* 104 107 120 - General physical appearance well developed, no distress, cachectic, chronically ill - Eyes normal ocular movement - ENT atraumatic, normocephalic - Neck Neck exam: trachea midline - Respiratory normal expansion, normal respiratory effort, clear to auscultation - Cardiovascular Cardiovascular exam: Present: RRR - Abdomen Abdomen: Present: bowel sounds present (hyperactive), soft, tender (expected post operative tenderness) - Incision Incision: Present: clean and dry, serosanguinous (in drain, slowed) - Psychiatric speech is normal - Labs 04/24/17 04:43 04/24/17 04:46 Diabetes panel 04/24/17 Range/Units 04:46 Sodium 135 L (136-145) mEq/L Potassium 2.7 L (3.5-4.5) mEq/L Chloride 99 (98-109) mEq/L Carbon Dioxide 31 H (19-29) mEq/L BUN 2 L (8-26) mg/dL Creatinine 0.62 L (0.72-1.25) mg/dL Glucose 106 H (70-99) mg/dL Calcium 7.4 L (8.6-10.8) mg/dL Calcium panel 04/24/17 Range/Units 04:46 Calcium 7.4 L (8.6-10.8) mg/dL Pituitary panel 04/24/17 Range/Units 04:46 Sodium 135 L (136-145) mEq/L Potassium 2.7 L (3.5-4.5) mEq/L Chloride 99 (98-109) mEq/L Carbon Dioxide 31 H (19-29) mEq/L BUN 2 L (8-26) mg/dL Creatinine 0.62 L (0.72-1.25) mg/dL Glucose 106 H (70-99) mg/dL Calcium 7.4 L (8.6-10.8) mg/dL Adrenal panel 04/24/17 Range/Units 04:46 Sodium 135 L (136-145) mEq/L Potassium 2.7 L (3.5-4.5) mEq/L Chloride 99 (98-109) mEq/L Carbon Dioxide 31 H (19-29) mEq/L BUN 2 L (8-26) mg/dL Creatinine 0.62 L (0.72-1.25) mg/dL Glucose 106 H (70-99) mg/dL Calcium 7.4 L (8.6-10.8) mg/dL - VTE Documentation of Mechanical Device: Intermittent pneumatic compression device
[2017-04-25] MEDS: *HR* HYDROmorphone (PF) 1 MG/ML SYRINGE IVP PRN ×4 (04:30→20:33)
[2017-04-25 06:05] LABS: Basophils # 0.1 K/mcL (0.0-0.2); Basophils % 0.6 %; Eosinophils # 0.1 K/mcL (0.0-0.6); Eosinophils % 0.6 %; Hematocrit 33.2 % (37.5-50.1); Hemoglobin 11.3 g/dL (12.9-16.9); Lymphocytes # 1.6 K/mcL (0.6-4.6); Mean Corpuscular Hemoglobin 31.8 pg (28.0-33.3); Mean Corpuscular Volume 93.5 fL (83.0-100.0); Mean Platelet Volume 7.9 fL (9.4-12.4); Monocytes # 0.8 K/mcL (0.0-1.3); Monocytes % 7.3 %; Neutrophils # 7.8 K/mcL (1.6-8.9); Platelet Count 347 K/mcL (140-400); Red Blood Count 3.55 M/mcL (4.19-5.50); Segmented Neutrophils % 73.5 %
[2017-04-25 06:14] LABS: BUN/Creatinine Ratio 3 (6-26); Calcium 8.1 mg/dL (8.6-10.8); Carbon Dioxide 31 mEq/L (19-29); Chloride 98 mEq/L (98-109); Glucose 104 mg/dL (70-99); Osmolality,Calculated 276 (280-300); Potassium 3.5 mEq/L (3.5-4.5); Sodium 135 mEq/L (136-145); eGFR For African Americans > 60 (> 60); eGFR For Non-African Americans > 60 (> 60)
[2017-04-25 06:16] LABS: Blood Urea Nitrogen 2 mg/dL (8-26)
[2017-04-25] MEDS: *HR* Heparin 5,000 UNIT/ML VIAL SQ SCH ×2 (06:20→19:00)
[2017-04-25] MEDS: Pantoprazole 40 MG VIAL IVP SCH (08:16)
[2017-04-25] MEDS: Piperacillin/Tazobactam 3.375 GM in D5% in Water (Mini-Bag+) 100 ML IVPB SCH ×2 (08:16→15:51)
[2017-04-25] MEDS: D5% in 0.45% NACL w KCl 20 MEQ/1,000 ML MLS IVC SCH (08:17)
[2017-04-25 09:27] LABS: Vitamin A (Retinol) <0.06 mg/L (0.30-1.20); Vitamin A (Retinyl-palmitate) <0.02 mg/L (0.00-0.10)
--- NOTE | 2017-04-25 09:35 | General Surgery Progress Note ---
<Mohit Nieto - Last Filed: 04/25/17 11:15> Date of Encounter: 04/25/17 Time of Encounter: 09:33 - Assessment and Plan (1) S/P small bowel resection Current Visit: Yes Status: Acute POD#5 NGT discontinued and patient started on clears Patient is tolerating Continue IVF Pain control (2) Crohn disease Current Visit: No Status: Chronic holding humira due to effects on postop healing Qualifiers: Gastrointestinal tract location: small and large intestine Digestive disease complication type: with intestinal obstruction Qualified Code(s): K50.812 - Crohn's disease of both small and large intestine with intestinal obstruction (3) Urinary retention Current Visit: Yes Status: Acute Started on Flomax 0.4 mg daily will dc kelly tomorrow morning (4) Leukocytosis Current Visit: Yes Status: Resolved finish abx Qualifiers: Leukocytosis type: unspecified Qualified Code(s): D72.829 - Elevated white blood cell count, unspecified (5) Hypokalemia Current Visit: Yes Status: Acute Improved to 3.5 Continue continuous IVPB Will monitor with morning labs (6) Protein-calorie malnutrition, severe Current Visit: No Status: Chronic Patient tolerating clears (7) DVT prophylaxis Current Visit: No Status: Acute Continue subq heparin Subjective Patient reports: no new complaints, feels better, tolerating liquids well, flatus (thinks he had it overnight), no bowel movement, afebrile Objective Vital Signs - Last 8 Hours Temp Pulse Resp BP Pulse Ox 04/25/17 06:51 98.0 F 60 16 154/88 99 04/25/17 04:49 98.1 F 57 16 156/86 99 Intake and Output 04/24/17 04/25/17 04/25/17 23:59 07:59 15:59 Intake Total 1200 / 1200 300 / 300 1000 / 1000 Output Total 450 / 450 1500 / 1500 Balance 750 / 750 -1200 / -1200 1000 / 1000 Intake: IV Fluids 1200 / 1200 300 / 300 1000 / 1000 KCl 20mEq IN D5%-0.45 1000 / 1000 1000 / 1000 NACL 20 meq In 1,000 ml @ 100 mls/hr IVC .Q10H [facility] Rx#:[id number] Zosyn 3.375 GM In 100 / 100 100 / 100 Dextrose 5% (Minibag+) 100 ML 100 ML @ 25 mls/hr IVPB Q8HR [facility] Rx#: [id number] Potassium Chloride 10 mEq 100 / 100 200 / 200 /100mL 10 meq In 100 ml @ 100 mls/hr IVPB Q1H [facility]Y Rx#:[id number] Oral 0 / 0 0 / 0 Output: Catheter 450 / 450 1500 / 1500 Other: Meal NPO Percent of Meal Consumed 0% # Bowel Movements 0 Weight 55.3 kg Blood Glucose* 108 110 Patient Weight 04/25/17 23:59 Weight 55.3 kg - General physical appearance well developed, no distress, cachectic, chronically ill - Eyes normal ocular movement - ENT atraumatic, normocephalic - Neck Neck exam: trachea midline - Respiratory normal expansion, normal respiratory effort, clear to auscultation - Cardiovascular Cardiovascular exam: Present: RRR - Abdomen Abdomen: Present: bowel sounds present (less hyperactive than yesterday), soft, non tender - Musculoskeletal normal posture - Psychiatric speech is normal - Labs 04/25/17 05:30 04/25/17 05:30 Diabetes panel 04/25/17 Range/Units 05:30 Sodium 135 L (136-145) mEq/L Potassium 3.5 (3.5-4.5) mEq/L Chloride 98 (98-109) mEq/L Carbon Dioxide 31 H (19-29) mEq/L BUN 2 L (8-26) mg/dL Creatinine 0.69 L (0.72-1.25) mg/dL Glucose 104 H (70-99) mg/dL Calcium 8.1 L (8.6-10.8) mg/dL Calcium panel 04/25/17 Range/Units 05:30 Calcium 8.1 L (8.6-10.8) mg/dL Pituitary panel 04/25/17 Range/Units 05:30 Sodium 135 L (136-145) mEq/L Potassium 3.5 (3.5-4.5) mEq/L Chloride 98 (98-109) mEq/L Carbon Dioxide 31 H (19-29) mEq/L BUN 2 L (8-26) mg/dL Creatinine 0.69 L (0.72-1.25) mg/dL Glucose 104 H (70-99) mg/dL Calcium 8.1 L (8.6-10.8) mg/dL Adrenal panel 04/25/17 Range/Units 05:30 Sodium 135 L (136-145) mEq/L Potassium 3.5 (3.5-4.5) mEq/L Chloride 98 (98-109) mEq/L Carbon Dioxide 31 H (19-29) mEq/L BUN 2 L (8-26) mg/dL Creatinine 0.69 L (0.72-1.25) mg/dL Glucose 104 H (70-99) mg/dL Calcium 8.1 L (8.6-10.8) mg/dL - VTE Documentation of Mechanical Device: Intermittent pneumatic compression device Consult Discharge Plan - Plan Referrals: Arnoldo Vasquez MD [Partnered Physician] - 05/02/17 11:00 am Oumou Eagle MD [Primary Care Provider] - <Arnoldo Vasquez - Last Filed: 04/25/17 14:18> Date of Encounter: 04/25/17 Objective Vital Signs - Last 8 Hours Temp Pulse Resp BP Pulse Ox 04/25/17 11:23 98.1 F 59 15 145/84 99 04/25/17 06:51 98.0 F 60 16 154/88 99 Intake and Output 04/24/17 04/25/17 04/25/17 23:59 07:59 15:59 Intake Total 1200 / 1200 300 / 300 1240 / 1240 Output Total 450 / 450 1500 / 1500 400 / 400 Balance 750 / 750 -1200 / -1200 840 / 840 Intake: IV Fluids 1200 / 1200 300 / 300 1000 / 1000 KCl 20mEq IN D5%-0.45 1000 / 1000 1000 / 1000 NACL 20 meq In 1,000 ml @ 100 mls/hr IVC .Q10H [facility] Rx#:[id number] Zosyn 3.375 GM In 100 / 100 100 / 100 Dextrose 5% (Minibag+) 100 ML 100 ML @ 25 mls/hr IVPB Q8HR [facility] Rx#: [id number] Potassium Chloride 10 mEq 100 / 100 200 / 200 /100mL 10 meq In 100 ml @ 100 mls/hr IVPB Q1H [facility] Rx#:[id number] Oral 0 / 0 0 / 0 240 / 240 Output: Catheter 450 / 450 1500 / 1500 400 / 400 Other: Meal NPO Lunch Percent of Meal Consumed 0% 0% # Bowel Movements 0 0 Weight 55.3 kg Blood Glucose* 108 110 Patient Weight 04/25/17 23:59 Weight 55.3 kg - Labs 04/25/17 05:30 04/25/17 05:30 Diabetes panel 04/25/17 Range/Units 05:30 Sodium 135 L (136-145) mEq/L Potassium 3.5 (3.5-4.5) mEq/L Chloride 98 (98-109) mEq/L Carbon Dioxide 31 H (19-29) mEq/L BUN 2 L (8-26) mg/dL Creatinine 0.69 L (0.72-1.25) mg/dL Glucose 104 H (70-99) mg/dL Calcium 8.1 L (8.6-10.8) mg/dL Calcium panel 04/25/17 Range/Units 05:30 Calcium 8.1 L (8.6-10.8) mg/dL Pituitary panel 04/25/17 Range/Units 05:30 Sodium 135 L (136-145) mEq/L Potassium 3.5 (3.5-4.5) mEq/L Chloride 98 (98-109) mEq/L Carbon Dioxide 31 H (19-29) mEq/L BUN 2 L (8-26) mg/dL Creatinine 0.69 L (0.72-1.25) mg/dL Glucose 104 H (70-99) mg/dL Calcium 8.1 L (8.6-10.8) mg/dL Adrenal panel 04/25/17 Range/Units 05:30 Sodium 135 L (136-145) mEq/L Potassium 3.5 (3.5-4.5) mEq/L Chloride 98 (98-109) mEq/L Carbon Dioxide 31 H (19-29) mEq/L BUN 2 L (8-26) mg/dL Creatinine 0.69 L (0.72-1.25) mg/dL Glucose 104 H (70-99) mg/dL Calcium 8.1 L (8.6-10.8) mg/dL - Attending Attestation I examined this patient and my medical decision-making was reviewed with the Resident Physician. I agree with the documented findings, disposition and treatment plan as described except to the extent set forth below. Violated the patient and review the above assessment and evaluation. NG tube has been removed and we will start clear liquids. Encourage out of bed and ambulation. Overall the patient continues to improve.
[2017-04-25] MEDS ORDERED: D5% in 0.45% NACL w KCl 20 MEQ/1,000 ML MLS IVC SCH (14:06)
[2017-04-26] MEDS: *HR* HYDROmorphone (PF) 1 MG/ML SYRINGE IVP PRN ×5 (01:24→20:23)
[2017-04-26] MEDS: Piperacillin/Tazobactam 3.375 GM in D5% in Water (Mini-Bag+) 100 ML IVPB SCH ×4 (01:25→23:35)
[2017-04-26] MEDS: *HR* Heparin 5,000 UNIT/ML VIAL SQ SCH ×2 (06:09→18:44)
[2017-04-26] MEDS: Pantoprazole 40 MG VIAL IVP SCH (07:58)
--- NOTE | 2017-04-26 09:13 | General Surgery Progress Note ---
<Mohit Nieto - Last Filed: 04/26/17 16:04> Date of Encounter: 04/26/17 Time of Encounter: 12:30 - Assessment and Plan (1) S/P small bowel resection Current Visit: Yes Status: Acute POD#6 Patient tolerating clears Patient had bowel movement this afternoon will advance to soft diet Continue IVF Pain control (2) Crohn disease Current Visit: No Status: Chronic holding humira due to effects on postop healing Qualifiers: Gastrointestinal tract location: small and large intestine Digestive disease complication type: with intestinal obstruction Qualified Code(s): K50.812 - Crohn's disease of both small and large intestine with intestinal obstruction (3) Urinary retention Current Visit: Yes Status: Acute Continue Flomax 0.4 mg daily Mendez discontinued this morning Patient was able to void spontaneously this afternoon (4) Leukocytosis Current Visit: Yes Status: Resolved finish abx Qualifiers: Leukocytosis type: unspecified Qualified Code(s): D72.829 - Elevated white blood cell count, unspecified (5) Hypokalemia Current Visit: Yes Status: Acute Awaiting morning labs - first draw hemolyzed Likely resolved (6) Protein-calorie malnutrition, severe Current Visit: No Status: Chronic Patient tolerating clears (7) DVT prophylaxis Current Visit: No Status: Acute Continue subq heparin Subjective Patient reports: no new complaints, feels better (Denies any pain), tolerating liquids well, voiding w/o difficulty, flatus, bowel movement, nausea (mild), afebrile Narrative: Patient reports increased appetite Objective Vital Signs - Last 8 Hours Temp Pulse Resp BP Pulse Ox 04/26/17 06:50 98.3 F 69 12 127/80 98 04/26/17 02:52 98.0 F 68 15 144/82 98 Intake and Output 04/25/17 04/26/17 04/26/17 23:59 07:59 15:59 Intake Total 220 / 220 100 / 100 Output Total 550 / 550 625 / 625 Balance -330 / -330 -525 / -525 Intake: IV Fluids 100 / 100 100 / 100 Zosyn 3.375 GM In 100 / 100 100 / 100 Dextrose 5% (Minibag+) 100 ML 100 ML @ 25 mls/hr IVPB Q8HR [facility] Rx#: [id number] Oral 120 / 120 Output: Catheter 550 / 550 625 / 625 Other: Meal Clear Weight 55 kg Patient Weight 04/26/17 23:59 Weight 55 kg - General physical appearance well developed, no distress, cachectic, chronically ill - Eyes normal ocular movement - ENT atraumatic, normocephalic - Neck Neck exam: trachea midline - Respiratory normal expansion, normal respiratory effort, clear to auscultation - Cardiovascular Cardiovascular exam: Present: RRR - Abdomen Abdomen: Present: bowel sounds present, soft, non tender - Incision Incision: Present: clean and dry - Musculoskeletal normal posture - Psychiatric speech is normal - Labs 04/25/17 05:30 04/26/17 10:04 - VTE Documentation of Mechanical Device: Intermittent pneumatic compression device Consult Discharge Plan - Plan Referrals: Arnoldo Vasquez MD [Partnered Physician] - 05/02/17 11:00 am Oumou Eagle MD [Primary Care Provider] - <Arnoldo Vasquez - Last Filed: 04/27/17 07:01> Date of Encounter: 04/26/17 Objective Vital Signs - Last 8 Hours Temp Pulse Resp BP Pulse Ox 04/27/17 03:21 97.5 F L 66 20 142/77 99 04/26/17 23:55 97.3 F L 69 18 161/75 99 Intake and Output 04/26/17 04/26/17 04/27/17 15:59 23:59 07:59 Intake Total 340 / 340 1100 / 1100 100 / 100 Output Total 325 / 325 220 / 220 Balance 340 / 340 775 / 775 -120 / -120 Intake: IV Fluids 100 / 100 1100 / 1100 100 / 100 Zosyn 3.375 GM In 100 / 100 100 / 100 100 / 100 Dextrose 5% (Minibag+) 100 ML 100 ML @ 25 mls/hr IVPB Q8HR [facility] Rx#: [id number] Oral 240 / 240 Output: Urine 325 / 325 220 / 220 Other: Meal Lunch Percent of Meal Consumed 10% Stool Size Moderate Stool Consistency loose Stool Color Brown # Voids 1 # Bowel Movements 1 Weight 46.5 kg Patient Weight 04/27/17 23:59 Weight 46.5 kg - Labs 04/25/17 05:30 04/26/17 10:04 Diabetes panel 04/26/17 Range/Units 10:04 Sodium 134 L (136-145) mEq/L Potassium 3.6 (3.5-4.5) mEq/L Chloride 97 L (98-109) mEq/L Carbon Dioxide 31 H (19-29) mEq/L BUN 2 L (8-26) mg/dL Creatinine 0.71 L (0.72-1.25) mg/dL Glucose 114 H (70-99) mg/dL Calcium 8.0 L (8.6-10.8) mg/dL Calcium panel 04/26/17 Range/Units 10:04 Calcium 8.0 L (8.6-10.8) mg/dL Pituitary panel 04/26/17 Range/Units 10:04 Sodium 134 L (136-145) mEq/L Potassium 3.6 (3.5-4.5) mEq/L Chloride 97 L (98-109) mEq/L Carbon Dioxide 31 H (19-29) mEq/L BUN 2 L (8-26) mg/dL Creatinine 0.71 L (0.72-1.25) mg/dL Glucose 114 H (70-99) mg/dL Calcium 8.0 L (8.6-10.8) mg/dL Adrenal panel 04/26/17 Range/Units 10:04 Sodium 134 L (136-145) mEq/L Potassium 3.6 (3.5-4.5) mEq/L Chloride 97 L (98-109) mEq/L Carbon Dioxide 31 H (19-29) mEq/L BUN 2 L (8-26) mg/dL Creatinine 0.71 L (0.72-1.25) mg/dL Glucose 114 H (70-99) mg/dL Calcium 8.0 L (8.6-10.8) mg/dL - Attending Attestation I examined this patient and my medical decision-making was reviewed with the Resident Physician. I agree with the documented findings, disposition and treatment plan as described except to the extent set forth below. I reviewed the above assessment and evaluation with the resident and agree with the above plan. Patient is tolerating regular diet. Continue with ambulation and will likely set up for discharge home within the next 24 hours with follow- up in 2 weeks.
[2017-04-26 11:24] LABS: BUN/Creatinine Ratio 3 (6-26); Carbon Dioxide 31 mEq/L (19-29); Chloride 97 mEq/L (98-109); Glucose 114 mg/dL (70-99); Osmolality,Calculated 275 (280-300); Potassium 3.6 mEq/L (3.5-4.5); Sodium 134 mEq/L (136-145); eGFR For African Americans > 60 (> 60); eGFR For Non-African Americans > 60 (> 60)
[2017-04-26 11:26] LABS: Blood Urea Nitrogen 2 mg/dL (8-26)
[2017-04-27] MEDS: *HR* HYDROmorphone (PF) 1 MG/ML SYRINGE IVP PRN ×8 (02:06→22:00)
[2017-04-27] MEDS: *HR* Heparin 5,000 UNIT/ML VIAL SQ SCH ×2 (05:46→16:54)
[2017-04-27 07:07] LABS: Vitamin B1 (Thiamine) Whole Bl 123 nmol/L (70-180)
[2017-04-27] MEDS: Piperacillin/Tazobactam 3.375 GM in D5% in Water (Mini-Bag+) 100 ML IVPB SCH ×2 (09:16→16:54)
[2017-04-27] MEDS: Pantoprazole 40 MG VIAL IVP SCH (09:18)
--- NOTE | 2017-04-27 11:26 | General Surgery Progress Note ---
<Arnoldo Vasquez - Last Filed: 04/28/17 08:02> Date of Encounter: 04/27/17 Objective Vital Signs - Last 8 Hours Temp Pulse Resp BP Pulse Ox 04/28/17 06:23 74 18 145/88 98 04/28/17 04:42 98.5 F 83 16 151/97 96 04/28/17 00:23 98.5 F 72 15 134/87 96 Intake and Output 04/27/17 04/28/17 04/28/17 23:59 07:59 15:59 Intake Total 100 / 100 100 / 100 Output Total 575 / 575 750 / 750 Balance -475 / -475 -650 / -650 Intake: IV Fluids 100 / 100 100 / 100 Zosyn 3.375 GM In 100 / 100 100 / 100 Dextrose 5% (Minibag+) 100 ML 100 ML @ 25 mls/hr IVPB Q8HR [facility] Rx#: [id number] Oral 0 / 0 Output: Urine 575 / 575 750 / 750 Other: Meal Dinner Percent of Meal Consumed 0% # Bowel Movements 0 Weight 47.4 kg Patient Weight 04/28/17 23:59 Weight 47.4 kg - Labs 04/28/17 05:56 04/28/17 05:56 Diabetes panel 04/27/17 04/28/17 Range/Units 11:45 05:56 Sodium 133 L 134 L (136-145) mEq/L Potassium 3.2 L 3.5 (3.5-4.5) mEq/L Chloride 93 L 95 L (98-109) mEq/L Carbon Dioxide 32 H 31 H (19-29) mEq/L BUN 2 L 3 L (8-26) mg/dL Creatinine 0.67 L 0.69 L (0.72-1.25) mg/dL Glucose 124 H 90 (70-99) mg/dL Calcium 7.7 L 8.6 (8.6-10.8) mg/dL Calcium panel 04/27/17 04/28/17 04/28/17 Range/Units 11:45 05:56 05:56 Calcium 7.7 L 8.6 (8.6-10.8) mg/dL Phosphorus 2.8 (2.3-4.7) mg/dL Pituitary panel 04/27/17 04/28/17 Range/Units 11:45 05:56 Sodium 133 L 134 L (136-145) mEq/L Potassium 3.2 L 3.5 (3.5-4.5) mEq/L Chloride 93 L 95 L (98-109) mEq/L Carbon Dioxide 32 H 31 H (19-29) mEq/L BUN 2 L 3 L (8-26) mg/dL Creatinine 0.67 L 0.69 L (0.72-1.25) mg/dL Glucose 124 H 90 (70-99) mg/dL Calcium 7.7 L 8.6 (8.6-10.8) mg/dL Adrenal panel 04/27/17 04/28/17 Range/Units 11:45 05:56 Sodium 133 L 134 L (136-145) mEq/L Potassium 3.2 L 3.5 (3.5-4.5) mEq/L Chloride 93 L 95 L (98-109) mEq/L Carbon Dioxide 32 H 31 H (19-29) mEq/L BUN 2 L 3 L (8-26) mg/dL Creatinine 0.67 L 0.69 L (0.72-1.25) mg/dL Glucose 124 H 90 (70-99) mg/dL Calcium 7.7 L 8.6 (8.6-10.8) mg/dL Consult Discharge Plan - Plan Additional Instructions: f/u with Dr. Vasquez in 2 weeks Referrals: Arnoldo Vasquez MD [Partnered Physician] - 05/02/17 11:00 am Oumou Eagle MD [Primary Care Provider] - Prescriptions: OxyCODONE/APAP 10/325 [Percocet 10/325 MG] 1 each PO Q6HR PRN #39 tablet PRN Reason: Pain Docusate [Colace] 100 mg PO BID #30 capsule - Attending Attestation I examined this patient and my medical decision-making was reviewed with the Resident Physician. I agree with the documented findings, disposition and treatment plan as described except to the extent set forth below. Review the above assessment and evaluation and agree with the above plan. Patient had increased abdominal pain with soft food diet. Unable to determine whether or not the pain was truly related to eating food since patient did have food prior breakfast but did not have any similar right flank pain following breakfast. No current pain on palpation. We will continue to observe and will likely advance diet to soft foods (currently reduced to full liquids). Continue ambulation. <Mohit Nieto - Last Filed: 04/28/17 12:59> Date of Encounter: 04/27/17 Time of Encounter: 11:24 - Assessment and Plan (1) S/P small bowel resection Current Visit: Yes Status: Acute POD#7 Patient had pain and nausea after dinner last night Continues to have bowel movements and flatus We will observe for another day and reduce diet down to full liquid Pain control (2) Crohn disease Current Visit: No Status: Chronic holding humira due to effects on postop healing Qualifiers: Gastrointestinal tract location: small and large intestine Digestive disease complication type: with intestinal obstruction Qualified Code(s): K50.812 - Crohn's disease of both small and large intestine with intestinal obstruction (3) Urinary retention Current Visit: Yes Status: Acute Patient voiding spontaneously (4) Leukocytosis Current Visit: Yes Status: Resolved finish abx Qualifiers: Leukocytosis type: unspecified Qualified Code(s): D72.829 - Elevated white blood cell count, unspecified (5) Hypokalemia Current Visit: Yes Status: Resolved Resolved (6) Protein-calorie malnutrition, severe Current Visit: No Status: Chronic Patient on TPN and is eating (7) DVT prophylaxis Current Visit: No Status: Acute Continue subq heparin Subjective Patient reports: still having pain, voiding w/o difficulty, flatus, bowel movement (loose stool), nausea, afebrile Objective Vital Signs - Last 8 Hours Temp Pulse Resp BP Pulse Ox 04/27/17 07:33 97.3 F L 72 16 155/88 100 Intake and Output 04/26/17 04/27/17 04/27/17 23:59 07:59 15:59 Intake Total 1100 / 1100 100 / 100 Output Total 325 / 325 720 / 720 Balance 775 / 775 -620 / -620 Intake: IV Fluids 1100 / 1100 100 / 100 Zosyn 3.375 GM In 100 / 100 100 / 100 Dextrose 5% (Minibag+) 100 ML 100 ML @ 25 mls/hr IVPB Q8HR [facility] Rx#: [id number] Oral 0 / 0 Output: Urine 325 / 325 720 / 720 Other: Stool Size Small Stool Consistency loose soft Stool Color Brown Weight 46.5 kg Patient Weight 04/27/17 23:59 Weight 46.5 kg - General physical appearance well developed, no distress, cachectic, chronically ill - ENT atraumatic, normocephalic - Neck Neck exam: trachea midline - Respiratory normal expansion, normal respiratory effort, clear to auscultation - Cardiovascular Cardiovascular exam: Present: RRR - Abdomen Abdomen: Present: bowel sounds present, soft, tender (Flank, wrapping around to front) - Incision Incision: Present: clean and dry - Psychiatric speech is normal - Labs 04/28/17 05:56 04/28/17 05:56 Diabetes panel 04/26/17 Range/Units 10:04 Sodium 134 L (136-145) mEq/L Potassium 3.6 (3.5-4.5) mEq/L Chloride 97 L (98-109) mEq/L Carbon Dioxide 31 H (19-29) mEq/L BUN 2 L (8-26) mg/dL Creatinine 0.71 L (0.72-1.25) mg/dL Glucose 114 H (70-99) mg/dL Calcium 8.0 L (8.6-10.8) mg/dL Calcium panel 04/26/17 Range/Units 10:04 Calcium 8.0 L (8.6-10.8) mg/dL Pituitary panel 04/26/17 Range/Units 10:04 Sodium 134 L (136-145) mEq/L Potassium 3.6 (3.5-4.5) mEq/L Chloride 97 L (98-109) mEq/L Carbon Dioxide 31 H (19-29) mEq/L BUN 2 L (8-26) mg/dL Creatinine 0.71 L (0.72-1.25) mg/dL Glucose 114 H (70-99) mg/dL Calcium 8.0 L (8.6-10.8) mg/dL Adrenal panel 04/26/17 Range/Units 10:04 Sodium 134 L (136-145) mEq/L Potassium 3.6 (3.5-4.5) mEq/L Chloride 97 L (98-109) mEq/L Carbon Dioxide 31 H (19-29) mEq/L BUN 2 L (8-26) mg/dL Creatinine 0.71 L (0.72-1.25) mg/dL Glucose 114 H (70-99) mg/dL Calcium 8.0 L (8.6-10.8) mg/dL - VTE Documentation of Mechanical Device: Intermittent pneumatic compression device
[2017-04-27 12:05] LABS: BUN/Creatinine Ratio 3 (6-26); Blood Urea Nitrogen 2 mg/dL (8-26); Calcium 7.7 mg/dL (8.6-10.8); Carbon Dioxide 32 mEq/L (19-29); Chloride 93 mEq/L (98-109); Glucose 124 mg/dL (70-99); Osmolality,Calculated 274 (280-300); Potassium 3.2 mEq/L (3.5-4.5); Sodium 133 mEq/L (136-145); eGFR For African Americans > 60 (> 60); eGFR For Non-African Americans > 60 (> 60)
[2017-04-27] MEDS ORDERED: *HR* OxyCODONE/APAP 5/325 TABLET PO PRN (15:30)
[2017-04-27] MEDS: Ibuprofen 800 MG TABLET PO SCH (16:53)
[2017-04-28] MEDS: Piperacillin/Tazobactam 3.375 GM in D5% in Water (Mini-Bag+) 100 ML IVPB SCH ×2 (00:41→08:38)
[2017-04-28] MEDS: Ibuprofen 800 MG TABLET PO SCH ×2 (00:44→08:37)
[2017-04-28] MEDS: *HR* Heparin 5,000 UNIT/ML VIAL SQ SCH (05:13)
[2017-04-28 06:23] LABS: Basophils % 0.3 %; Eosinophils # 0.1 K/mcL (0.0-0.6); Eosinophils % 0.7 %; Hematocrit 30.9 % (37.5-50.1); Hemoglobin 10.6 g/dL (12.9-16.9); Immature Granulocytes % 1.4 % (0-4); Lymphocytes # 0.9 K/mcL (0.6-4.6); Lymphocytes % 6.8 %; Mean Corpuscular HGB Conc 34.3 g/dL (31.6-35.5); Mean Corpuscular Volume 93.4 fL (83.0-100.0); Mean Platelet Volume 8.1 fL (9.4-12.4); Monocytes % 6.9 %; Neutrophils # 11.7 K/mcL (1.6-8.9); Platelet Count 241 K/mcL (140-400); Red Blood Count 3.31 M/mcL (4.19-5.50); Red Cell Distribution Width 13.7 % (11.5-14.5); Segmented Neutrophils % 83.9 %
[2017-04-28] MEDS: *HR* HYDROmorphone (PF) 1 MG/ML SYRINGE IVP PRN (06:24)
[2017-04-28 06:30] LABS: BUN/Creatinine Ratio 4 (6-26); Calcium 8.6 mg/dL (8.6-10.8); Carbon Dioxide 31 mEq/L (19-29); Chloride 95 mEq/L (98-109); Glucose 90 mg/dL (70-99); Osmolality,Calculated 274 (280-300); Potassium 3.5 mEq/L (3.5-4.5); Sodium 134 mEq/L (136-145); eGFR For African Americans > 60 (> 60); eGFR For Non-African Americans > 60 (> 60)
[2017-04-28 06:31] LABS: Blood Urea Nitrogen 3 mg/dL (8-26)
[2017-04-28 06:34] LABS: Magnesium 1.3 mg/dL (1.6-2.6); Phosphorous 2.8 mg/dL (2.3-4.7)
[2017-04-28] MEDS: Pantoprazole 40 MG VIAL IVP SCH (08:37)
[2017-04-28 10:44] VITALS: BP 145/87
--- NOTE | 2017-04-28 11:03 | Discharge Summary ---
<Mohit Nieto - Last Filed: 04/28/17 12:41> Date of Encounter: 04/28/17 Time of Encounter: 11:01 - Discharge Diagnosis (1) S/P small bowel resection Status: Acute (2) Crohn disease Status: Chronic Qualifiers: Gastrointestinal tract location: small and large intestine Digestive disease complication type: with intestinal obstruction Qualified Code(s): K50.812 - Crohn's disease of both small and large intestine with intestinal obstruction (3) Urinary retention Status: Acute (4) Leukocytosis Status: Resolved Qualifiers: Leukocytosis type: unspecified Qualified Code(s): D72.829 - Elevated white blood cell count, unspecified (5) Hypokalemia Status: Resolved (6) Protein-calorie malnutrition, severe Status: Chronic (7) DVT prophylaxis Status: Acute - Discharge Medications Prescriptions: OxyCODONE/APAP 10/325 [Percocet 10/325 MG] 1 each PO Q6HR PRN #39 tablet PRN Reason: Pain Docusate [Colace] 100 mg PO BID #30 capsule Home Medications: Adalimumab [Humira] 40 mg SQ Q2W 02/10/17 [History] Omeprazole [PriLOSEC] 40 mg PO DAILY 02/10/17 [History] HYDROcodone/Acet 5/325 mg [[place] 5-325 mg] 1 tab PO Q6H PRN #30 tab 03/03/17 [Rx ] Docusate [Colace] 100 mg PO BID #30 capsule 04/28/17 [Rx] OxyCODONE/APAP 10/325 [Percocet 10/325 MG] 1 each PO Q6HR PRN #39 tablet [Rx] Allergies/Adverse Reactions: Allergies No Known Allergies Allergy (Verified 02/10/17 09:03) General Surgery Exam Initial Vital Signs Temp Pulse Resp BP Pulse Ox 97.5 F L 80 18 121/83 99 04/20/17 10:05 04/20/17 10:05 04/20/17 10:05 04/20/17 10:05 04/20/17 10:05 - General physical appearance well developed, no distress, no pain, cachectic, chronically ill - Eyes normal ocular movement - ENT atraumatic, normocephalic - Neck trachea midline - Respiratory normal expansion, normal respiratory effort, clear to auscultation - Cardiovascular Cardiovascular exam: Present: RRR - Abdomen Abdomen general surgery: Present: bowel sounds present, soft, non tender - Incision Incision: Present: clean and dry - Musculoskeletal Present: normal posture - Psychiatric Psychiatric general surgery: Present: appropriate, speech is normal Date of admission: 04/20/17 15:14 Primary care physician: Oumou Eagle, Discharging clinician: Mohit Nieto Anticipated date of discharge: 04/28/17 - Patient Status Disposition: Home, Self-Care Condition: Good Functional capacity at discharge: independent ambulation Overall status at discharge: patient is progressing back to baseline - Discharge Instructions Follow Up With: Arnoldo Vasquze MD [Partnered Physician] - 05/02/17 11:00 am Oumou Eagle MD [Primary Care Provider] - Additional Instructions: f/u with Dr. Vasquez in 2 weeks - Diet and Activity Activity: resume usual activities as tolerated Diet: advance to your usual diet - Hospital Course Hospital course: Mr. De Souza is a 41 year old male who presented with small bowel obstruction secondary to crohn's disease. Small bowel resection was performed by Dr. Vasquez on 04/20/17 without complication. NGT was discontinued on 04/25/17 and the patient was started on a clear liquid diet. Bowel function returned on . He had some mild nausea and pain after dinner that evening, but this eventually subsided. He is tolerating a soft diet and have BMs without difficulty. He also has some urinary retention immediately following surgery, but this has since resolved after a brief kelly catheterization and flomax. Time spent discussing smoking cessation with patient: 3 to 10 minutes - Time Spent with Patient Total time spent providing and/or coordinating discharge services: Less than 30 minutes Labs on day of discharge: Labs from last 24 hours 04/28/17 04/28/17 04/28/17 05:56 05:56 05:56 WBC 13.9 H RBC 3.31 L Hgb 10.6 L Hct 30.9 L MCV 93.4 MCH 32.0 MCHC 34.3 RDW 13.7 Plt Count 241 MPV 8.1 L Immature Gran % 1.4 Seg Neutrophils % 83.9 Lymphocytes % 6.8 Monocytes % 6.9 Eosinophils % 0.7 Basophils % 0.3 Neutrophils # 11.7 H Lymphocytes # 0.9 Monocytes # 1.0 Eosinophils # 0.1 Basophils # 0.0 Sodium 134 L Potassium 3.5 Chloride 95 L Carbon Dioxide 31 H BUN 3 L Creatinine 0.69 L Est GFR ( Amer) > 60 Est GFR (Non-Af Amer) > 60 BUN/Creatinine Ratio 4 L Glucose 90 Calculated Osmolality 274 L Calcium 8.6 Phosphorus 2.8 Magnesium 1.3 L 04/27/17 11:45 WBC RBC Hgb Hct MCV MCH MCHC RDW Plt Count MPV Immature Gran % Seg Neutrophils % Lymphocytes % Monocytes % Eosinophils % Basophils % Neutrophils # Lymphocytes # Monocytes # Eosinophils # Basophils # Sodium 133 L Potassium 3.2 L Chloride 93 L Carbon Dioxide 32 H BUN 2 L Creatinine 0.67 L Est GFR ( Amer) > 60 Est GFR (Non-Af Amer) > 60 BUN/Creatinine Ratio 3 L Glucose 124 H Calculated Osmolality 274 L Calcium 7.7 L Phosphorus Magnesium <Arnoldo Vasquez - Last Filed: 04/28/17 14:41> Date of Encounter: 04/28/17 General Surgery Exam Initial Vital Signs Temp Pulse Resp BP Pulse Ox 97.5 F L 80 18 121/83 99 04/20/17 10:05 04/20/17 10:05 04/20/17 10:05 04/20/17 10:05 04/20/17 10:05 Date of admission: 04/20/17 15:14 Primary care physician: Oumou Eagle, - Hospital Course Hospital course: Mr. De Souza is a 41 year old male - Time Spent with Patient Total time spent providing and/or coordinating discharge services: Labs on day of discharge: Labs from last 24 hours 04/28/17 04/28/17 04/28/17 05:56 05:56 05:56 WBC 13.9 H RBC 3.31 L Hgb 10.6 L Hct 30.9 L MCV 93.4 MCH 32.0 MCHC 34.3 RDW 13.7 Plt Count 241 MPV 8.1 L Immature Gran % 1.4 Seg Neutrophils % 83.9 Lymphocytes % 6.8 Monocytes % 6.9 Eosinophils % 0.7 Basophils % 0.3 Neutrophils # 11.7 H Lymphocytes # 0.9 Monocytes # 1.0 Eosinophils # 0.1 Basophils # 0.0 Sodium 134 L Potassium 3.5 Chloride 95 L Carbon Dioxide 31 H BUN 3 L Creatinine 0.69 L Est GFR ( Amer) > 60 Est GFR (Non-Af Amer) > 60 BUN/Creatinine Ratio 4 L Glucose 90 Calculated Osmolality 274 L Calcium 8.6 Phosphorus 2.8 Magnesium 1.3 L - Attending Attestation I examined this patient and my medical decision-making was reviewed with the Resident Physician. I agree with the documented findings, disposition and treatment plan as described except to the extent set forth below. I reviewed the above with the resident and I agree with the above assessment and plan.
== END 2017-04-28 13:42 | disposition home or self-care (01) | DRG 221 ==
LOC: SAMDAY 09:39 → 3ANU 15:14
PROVIDERS: ADMIT Surgery; ATTEND Surgery

== ENCOUNTER 2022-02-18 06:16 | Observation (INO) ==
[2022-02-18 06:49] LABS: Basophils # 0.1 K/mcL (0.0-0.2); Basophils % 1.1 %; Eosinophils # 0.2 K/mcL (0.0-0.6); Eosinophils % 1.6 %; Hemoglobin 15.6 g/dL (12.9-16.9); Immature Granulocytes % 0.3 % (0-4); Lymphocytes # 4.2 K/mcL (0.6-4.6); Lymphocytes % 42.1 %; Mean Corpuscular HGB Conc 36.3 g/dL (31.6-35.5); Mean Corpuscular Hemoglobin 33.8 pg (28.0-33.3); Mean Corpuscular Volume 93.1 fL (83.0-100.0); Mean Platelet Volume 9.3 fL (9.4-12.4); Monocytes # 0.8 K/mcL (0.0-1.3); Monocytes % 8.4 %; Neutrophils # 4.6 K/mcL (1.6-8.9); Platelet Count 239 K/mcL (140-400); Red Blood Count 4.62 M/mcL (4.19-5.50); Red Cell Distribution Width 12.4 % (11.5-14.5); Segmented Neutrophils % 46.5 %; White Blood Count 9.9 K/mcL (4.3-11.1)
[2022-02-18 07:12] LABS: BUN/Creatinine Ratio 7 (6-26); Blood Urea Nitrogen 6 mg/dL (6-20); Calcium 8.8 mg/dL (8.6-10.3); Carbon Dioxide 34 mEq/L (23-29); Chloride 94 mEq/L (98-107); Glucose 109 mg/dL (70-105); Magnesium 1.5 mg/dL (1.6-2.6); Osmolality,Calculated 284 (280-300); Sodium 138 mEq/L (136-145); eGFR For African Americans > 60 (> 60); eGFR For Non-African Americans > 60 (> 60)
[2022-02-18] MEDS ORDERED: Potassium Effervescent 25 MEQ TABLET.EFF PO ONE (07:13)
[2022-02-18] MEDS ORDERED: Naloxone 0.4 MG/ML INJ IVP PRN (07:48)
[2022-02-18] MEDS ORDERED: Ondansetron 4 MG/2 ML VIAL IVP PRN (07:48)
[2022-02-18] MEDS ORDERED: 0.9 % Sodium Chloride 500 ML ONE (08:47)
[2022-02-18 09:27] LABS: Alanine Aminotransferase 27 Units/L (7-52); Albumin 3.7 g/dL (3.5-5.7); Albumin/Globulin Ratio 0.9 (1.1-2.2); Alkaline Phosphatase 79 Units/L (34-104); Aspartate Amino Transferase 36 Units/L (13-39); Bilirubin,Indirect 0.4 mg/dL (0.0-1.0); Bilirubin,Total 0.4 mg/dL (0.3-1.0); Globulin 4.2 g/dL (2.4-3.5); Total Protein 7.9 g/dL (6.4-8.9)
[2022-02-18] MEDS ORDERED: ADALIMUMAB 40 MG/0.8 ML SQ SCH (09:30)
[2022-02-18 11:41] LABS: Bilirubin,Urine Negative (Negative); Blood,Urine Negative (Negative); Clarity,Urine Clear (Clear); Color,Urine Colorless (Yellow); Glucose,Urine (UA) Normal (Normal); Ketones,Urine Negative (Negative); Leukocyte Esterase,Urine Negative (Negative); Nitrite,Urine Negative (Negative); PH,Urine 6.5 pH Units (5.0-8.0); Protein,Urine Negative (Neg-Trace); Specific Gravity,Urine 1.006 (1.010-1.025); Urobilinogen,Urine Normal (Normal)
[2022-02-18 11:54] LABS: BUN/Creatinine Ratio 7 (6-26); Blood Urea Nitrogen 6 mg/dL (6-20); Carbon Dioxide 37 mEq/L (23-29); Chloride 96 mEq/L (98-107); Glucose 111 mg/dL (70-105); Magnesium 1.9 mg/dL (1.6-2.6); Osmolality,Calculated 290 (280-300); Phosphorous 2.5 mg/dL (2.7-4.5); Potassium 2.4 mEq/L (3.5-5.1); Sodium 141 mEq/L (136-145); eGFR For African Americans > 60 (> 60); eGFR For Non-African Americans > 60 (> 60)
[2022-02-18 11:57] LABS: Thyroid Stimulating Hormone 1.481 mcIU/mL (0.340-5.600)
[2022-02-18] MEDS ORDERED: Potassium Phosphate 44 MEQ in 0.9 % Sodium Chloride 250 ML IVPB ONE (12:16)
[2022-02-18 16:22] LABS: BUN/Creatinine Ratio 8 (6-26); Blood Urea Nitrogen 7 mg/dL (6-20); Carbon Dioxide 39 mEq/L (23-29); Chloride 97 mEq/L (98-107); Glucose 122 mg/dL (70-105); Osmolality,Calculated 291 (280-300); Potassium 2.5 mEq/L (3.5-5.1); Sodium 141 mEq/L (136-145); eGFR For African Americans > 60 (> 60); eGFR For Non-African Americans > 60 (> 60)
[2022-02-18 19:59] VITALS: O2SAT 99
[2022-02-19 02:40] LABS: BUN/Creatinine Ratio 9 (6-26); Blood Urea Nitrogen 7 mg/dL (6-20); Calcium 7.7 mg/dL (8.6-10.3); Carbon Dioxide 34 mEq/L (23-29); Chloride 98 mEq/L (98-107); Glucose 114 mg/dL (70-105); Osmolality,Calculated 287 (280-300); Potassium 2.4 mEq/L (3.5-5.1); Sodium 139 mEq/L (136-145); eGFR For African Americans > 60 (> 60); eGFR For Non-African Americans > 60 (> 60)
[2022-02-19] MEDS ORDERED: *HR* Enoxaparin 40 MG/0.4 ML SYRINGE SQ SCH (06:00)
[2022-02-19] MEDS ORDERED: Cyanocobalamin (B-12) 1,000 MCG TABLET PO SCH (09:00)
[2022-02-19] MEDS ORDERED: BUDESONIDE 3 MG PO SCH (09:00)
[2022-02-19] MEDS ORDERED: Cholecalciferol (D-3) 1,000 UNIT (25MCG) TABLET PO SCH (09:00)
[2022-02-19] MEDS ORDERED: Folic Acid 1 MG TABLET PO SCH (09:00)
[2022-02-19 11:37] VITALS: BP 151/90; PULSE 71; TEMP 97.6
[2022-02-23] MEDS ORDERED: ADALIMUMAB 40 MG/0.8 ML SUBQ SCH (09:00)
== END 2022-02-19 13:54 | disposition home or self-care (01) ==
LOC: EMEROOARM 06:16 → 2NENU 06:16
PROVIDERS: ADMIT Student in an Organized Health Care Education/Training Program; ATTEND Student in an Organized Health Care Education/Training Program